=== PATIENT | male | born 1955 | race Caucasian/White ===

== ENCOUNTER 2017-09-06 17:29 | Emergency (ER) | payer MEDICAID, MEDICARE ==
[~2017-09-06] VITALS: Ht 177.8 cm; Wt 83.9 kg
[~2017-09-06 17:29] MED LIST: ALBUTEROL2.5 MG/3 M HHN; ATIVAN2 MG PO; AUGMENTIN TAB875 MG PO; BACTRIM-DS1 EA PO; CLEOCIN150 MG PO; CLINDAMYCIN HC150 MG ORAL; COMBIVIR1 EA PO; DEXILANT PO; DIFLUCAN200 MG ORAL; DILAUDID4 MG PO; NAPROXEN375 MG PO; NEVIRAPINE200 MG PO; QUETIAPINE FUM200 MG PO; REGLAN10 MG PO; Reglan PO; SERTRALINE HCL100 MG PO; SINGULAIR10 MG PO; SYNTHROID150 MCG PO; TRIAZOLAM0.25 MG PO; VENTOLIN HFA18 GM INH; XANAX2 MG PO; [UNRECOGNIZED DRUG - OTHER]; [UNRECOGNIZED DRUG - OTHER] IM; albuterol; fluconazole PO
[2017-09-06] MEDS ORDERED: Ipratropium 0.02% Inh Soln 2.5ml UD HHN ONE (18:45)
[2017-09-06] MEDS ORDERED: Albuterol ud Inhalation HHN ONE (18:45)
[2017-09-06 19:17] VITALS: BP 134/80
[2017-09-06] MEDS ORDERED: AUGMENTIN 875-1 EAC1 ORAL (20:11)
[2017-09-06] MEDS ORDERED: PREDNISONE20 MG ORAL (20:11)
[2017-09-06] MEDS ORDERED: PROMETHAZINE-C118 M1 ORAL (20:11)
[2017-09-06] MEDS ORDERED: ALBUTEROL SULF8.5 GM INH (20:11)
[2017-09-06 20:41] VITALS: BP 127/77
--- NOTE | 2017-09-06 22:05 | Emergency Room Report ---
History of Present Illness General Chief Complaint: Flu Like Symptoms Source: Patient Present Illness HPI 61-year-old male presents ED complaining of cough and congestion for the last 4 days. History of HIV. states he is compliant with his medications. Notes body aches and fever. Afebrile here. States he had a fever at home. Cough is productive with yellowish sputum. States his partner had similar symptoms initially area denies recent travel. No other aggravating relieving factors. Denies any other associated symptoms Allergies: Coded Allergies: BUPROPION HCL (Verified Allergy, 10/26/11) ONDANSETRON HCL (Verified Allergy, 10/26/11) Patient History Past Medical History: asthma, COPD, seizures, HIV Past Surgical History: none Pertinent Family History: none Social History: Denies: smoking, alcohol use, drug use Immunizations: UTD Reviewed Nursing Documentation: PMH: Agreed; PSxH: Agreed Nursing Documentation-PMH Hx Cardiac Problems: Yes - AIDS, Hep C Hx Asthma: Yes Hx COPD: Yes Hx Cancer: Yes - skin cancer, liver Hx Gastrointestinal Problems: Yes Hx Neurological Problems: Yes Hx Seizures: Yes Review of Systems All Other Systems: negative except mentioned in HPI Physical Exam Vital Signs Date Time Temp Pulse Resp B/P (MAP) Pulse Ox O2 Delivery O2 Flow Rate FiO2 09/06/17 18:17 98.7 87 18 134/80 98 Room Air 98.8 Sp02 EP Interpretation: reviewed, normal General Appearance: no apparent distress, alert, GCS 15, non-toxic Head: normocephalic, atraumatic Eyes: bilateral eye normal inspection, bilateral eye PERRL ENT: hearing grossly normal, normal pharynx, no angioedema, normal voice Neck: full range of motion, supple/symm/no masses Respiratory: chest non-tender, normal breath sounds, speaking full sentences, wheezing Cardiovascular #1: regular rate, rhythm, no edema Cardiovascular #2: 2+ carotid (R), 2+ carotid (L), 2+ radial (R), 2+ radial (L) , 2+ dorsalis pedis (R), 2+ dorsalis pedis (L) Gastrointestinal: normal bowel sounds, non tender, soft, non-distended, no guarding, no rebound Rectal: deferred Genitourinary: normal inspection, no CVA tenderness Musculoskeletal: back normal, gait/station normal, normal range of motion, non- tender Neurologic: alert, oriented x3, responsive, motor strength/tone normal, sensory intact, speech normal Psychiatric: judgement/insight normal, memory normal, mood/affect normal, no suicidal/homicidal ideation Reflexes: 3+ bicep (R), 3+ bicep (L), 3+ tricep (R), 3+ tricep (L), 3+ knee (R) , 3+ knee (L) Skin: normal color, no rash, warm/dry, well hydrated Lymphatic: no adenopathy Medical Decision Making Diagnostic Impression: Primary Impression: Pneumonia Qualified Codes: J18.9 - Pneumonia, unspecified organism ER Course Hospital Course 61-year-old male presents to ED complaining of cough, bodyaches, chills Differential diagnoses include: URI, bronchitis, asthma/COPD, pneumonia Clinical course Patient placed on stretcher. After initial history and physical I ordered prednisone and nebulizer treatment. Chest x-ray shows no obvious infiltrate Based on history of HIV and presentation we will treat as atypical pneumonia. I will prescribe antibiotics. Patient will follow-up with his PMD Dr Mae Diagnosis - pneumonia Stable and discharged home with prescriptions for Rx Augmentin, prednisone, albuterol, cough medication. Instructed to followup with PMD. Return to ED if symptoms recur or worsen Chest X-Ray Diagnostic Results Chest X-Ray Diagnostic Results : Chest X-Ray Ordered: Yes # of Views/Limited/Complete: 1 View Indication: Shortness of Breath EP Interpretation: Yes Interpretation: no consolidation, no effusion, no pneumothorax, no acute cardiopulmonary disease Impression: No acute disease Electronically Signed by: Electronically signed by Bucky Martinez MD Last Vital Signs Date Time Temp Pulse Resp B/P (MAP) Pulse Ox O2 Delivery O2 Flow Rate FiO2 09/06/17 19:17 98.8 87 18 134/80 98 Room Air 98.8 Status: improved Disposition: HOME, SELF-CARE Condition: Stable Scripts Albuterol Sulfate* (ALBUTEROL SULFATE MDI*) 8.5 Gm Hfa.aer.ad 2 PUFF INH Q6H, #1 EA 0 Refills Prov: Bucky Martinez MD 09/06/17 Prednisone* (PREDNISONE*) 20 Mg Tablet 40 MG ORAL DAILY, #10 TAB Prov: Bucky Martinez MD 09/06/17 Codeine/Promethazine Hcl* (PROMETHAZINE-CODEINE SYRUP*) 118 Ml Syrup 5 ML ORAL Q6H PRN for For Cough, #118 ML 0 Refills Prov: Bucky Martinez MD 09/06/17 Amoxicillin/Potassium Clav 875-125* (AUGMENTIN 875-125 TABLET*) 1 Each Tablet 1 TAB ORAL TWICE A DAY, #14 TAB Prov: Bucky Martinez MD 09/06/17 Patient Instructions: Community-Acquired Pneumonia, Adult, [id number] Bucky Martinez MD Sep 06, 2017 22:05
--- NOTE | 2017-09-07 11:45 | Diagnostic Imaging Report ---
Indication: Cough Comparison: 05/05/2015 A single view chest radiograph was obtained. Findings: Cardiomediastinal appearance is prominent but within normal limits for age. Pulmonary vascularity is appropriate. The diaphragmatic contour is smooth and costophrenic angles are sharp. No pleural effusions are identified. The bones are unremarkable. Impression: No acute findings
== END 2017-09-06 20:21 | disposition home or self-care (01) ==
LOC: EMR 18:35
DX: J18.9 Pneumonia, unspecified organism (principal); B20 Human immunodeficiency virus [HIV] disease; J45.909 Unspecified asthma, uncomplicated; J44.9 Chronic obstructive pulmonary disease, unspecified; R56.9 Unspecified convulsions; Z85.828 Personal history of other malignant neoplasm of skin; Z85.05 Personal history of malignant neoplasm of liver; Z88.8 Allergy status to other drugs, medicaments and biological substances
CPT/HCPCS: 71045; 94640; 94664; 99284; J7512

== ENCOUNTER 2019-01-06 13:37 | Inpatient (IN) | payer MEDICARE, MEDICAID ==
[~2019-01-06] VITALS: Ht 172.7 cm; Wt 78.5 kg
[~2019-01-06 13:37] MED LIST changes: +ALBUTEROL SULF8.5 GM INH; +AUGMENTIN 875-1 EAC1 ORAL; +OCUFLOX5 ML OP; +PREDNISONE20 MG ORAL; +PROMETHAZINE-C118 M1 ORAL
[2019-01-06 14:00] VITALS: BP 96/61
--- NOTE | 2019-01-06 14:00 | NUR ---
ED Nurse Note: Pt ambulated to ED from home with , c/o 09/05 headache and pain at L upper back, post cyst removal, Dr Bundy at bedside re-packing wound. Pt is A&Ox4, VSS
--- NOTE | 2019-01-06 14:23 | Emergency Room Report ---
History of Present Illness General Chief Complaint: Skin Rash/Abscess Source: Patient Present Illness HPI 63-year-old male history of HIV, hypertension, presents with fever/chills, generalized weakness x2 days since he had an incision and drainage of his back abscess, no aggravating or relieving factors severity is moderate, constant, patient was unable to obtain his IV antibiotics due to the home health nurse unable to get access, he is been without antibiotics for greater than 24 hours, patient presents for evaluation. Allergies: Coded Allergies: No Known Allergies (Unverified , 01/06/19) Patient History Past Medical History: see triage record Reviewed Nursing Documentation: PMH: Agreed; PSxH: Agreed Nursing Documentation-PMH Hx Cardiac Problems: Yes - AIDS, Hep C, CVA 04/2018 Hx Asthma: Yes Hx COPD: Yes Hx Cancer: Yes - skin cancer, liver Hx Gastrointestinal Problems: Yes History Of Psychiatric Problem: No Hx Neurological Problems: Yes Hx Seizures: Yes Review of Systems All Other Systems: negative except mentioned in HPI Physical Exam Vital Signs Date Time Temp Pulse Resp B/P (MAP) Pulse Ox O2 Delivery O2 Flow Rate FiO2 01/06/19 13:52 97.5 66 18 96/61 (73) 97 Room Air Sp02 EP Interpretation: reviewed, normal General Appearance: alert, mild distress Head: normocephalic, atraumatic Eyes: bilateral eye PERRL, bilateral eye EOMI ENT: uvula midline, moist mucus membranes Neck: supple, thyroid normal, supple/symm/no masses Respiratory: lungs clear, no respiratory distress, no retraction, no accessory muscle use Cardiovascular #1: normal peripheral pulses, regular rate, rhythm, no edema, no gallop, no murmur Gastrointestinal: non tender, soft, no guarding, no rebound Musculoskeletal: normal inspection Neurologic: alert, oriented x3 Psychiatric: mood/affect normal Skin: other - Left upper back abscess with mild drainage, packing has not been changed. Medical Decision Making Diagnostic Impression: Primary Impression: Sepsis Qualified Codes: A41.9 - Sepsis, unspecified organism Additional Impressions: Abscess Cellulitis Qualified Codes: L03.90 - Cellulitis, unspecified ER Course 63-year-old male with cellulitis of his upper back as well as abscess with active drainage, patient was started on antibiotics however he was unable to start his antibiotics for 2 days, he is been febrile tachycardic, Patient presents with borderline blood pressures, white count unremarkable however he is immunocompromise, will start Zosyn here Patient will be admitted for IV antibiotics Patient admitted to Dr. Dom Dyer Laboratory Tests Test 01/06/19 14:30 01/06/19 15:30 White Blood Count 4.2 K/UL (4.8-10.8) L Red Blood Count 5.49 M/UL (4.70-6.10) Hemoglobin 15.6 G/DL (14.2-18.0) Hematocrit 48.0 % (42.0-52.0) Mean Corpuscular Volume 88 FL (80-99) Mean Corpuscular Hemoglobin 28.5 PG (27.0-31.0) Mean Corpuscular Hemoglobin Concent 32.5 G/DL (32.0-36.0) Red Cell Distribution Width 13.5 % (11.6-14.8) Platelet Count 263 K/UL (150-450) Mean Platelet Volume 6.4 FL (6.5-10.1) L Neutrophils (%) (Auto) 59.1 % (45.0-75.0) Lymphocytes (%) (Auto) 28.4 % (20.0-45.0) Monocytes (%) (Auto) 7.9 % (1.0-10.0) Eosinophils (%) (Auto) 3.2 % (0.0-3.0) H Basophils (%) (Auto) 1.5 % (0.0-2.0) Sodium Level 140 MMOL/L (136-145) Potassium Level 4.7 MMOL/L (3.5-5.1) Chloride Level 105 MMOL/L (98-107) Carbon Dioxide Level 26 MMOL/L (21-32) Anion Gap 10 mmol/L (5-15) Blood Urea Nitrogen 25 mg/dL (7-18) H Creatinine 1.6 MG/DL (0.55-1.30) H Estimate Glomerular Filtration Rate 43.6 mL/min (>60) Glucose Level 149 MG/DL (74-106) H Lactic Acid Level 0.90 mmol/L (0.4-2.0) Calcium Level 8.7 MG/DL (8.5-10.1) Phosphorus Level 5.0 MG/DL (2.5-4.9) H Magnesium Level 1.9 MG/DL (1.8-2.4) Total Bilirubin 0.7 MG/DL (0.2-1.0) Aspartate Amino Transferase (AST) 40 U/L (15-37) H Alanine Aminotransferase (ALT) 34 U/L (12-78) Alkaline Phosphatase 79 U/L (46-116) Total Creatine Kinase 154 U/L (26-308) Creatine Kinase MB 2.1 NG/ML (0.0-3.6) Creatine Kinase MB Relative Index 1.3 Troponin I 0.000 ng/mL (0.000-0.056) Pro-B-Type Natriuretic Peptide 108 pg/mL (0-125) Total Protein 7.8 G/DL (6.4-8.2) Albumin 4.1 G/DL (3.4-5.0) Globulin 3.7 g/dL Albumin/Globulin Ratio 1.1 (1.0-2.7) Lipase 110 U/L (73-393) Prothrombin Time 10.6 SEC (9.30-11.50) Prothrombin Time INR 1.0 (0.9-1.1) PTT 29 SEC (23-33) EKG Diagnostic Results EKG Time: 15:16 EP Interpretation: NSR, rate 61, QTc 410, no acute ST elevations, normal axis Rhythm Strip Diag. Results Rhythm Strip Time: 17:41 EP Interpretation: yes Rate: 68 Rhythm: NSR, no PVC's, no ectopy Chest X-Ray Diagnostic Results Chest X-Ray Diagnostic Results : Chest X-Ray Ordered: Yes # of Views/Limited/Complete: 1 View Indication: Shortness of Breath EP Interpretation: Yes Interpretation: no consolidation, no effusion, no pneumothorax, no acute cardiopulmonary disease Impression: No acute disease Electronically Signed by: Enzo Bundy MD CT/MRI/US Diagnostic Results CT/MRI/US Diagnostic Results : Impression Preliminary Findings Only See Final Report For Complete Findings CT HEAD Without Contrast: No intracranial hemorrhage, mass effect or CT evidence of acute infarct Ventricles are within limits and midline A couple of opacified right ethmoid air cells Mastoids and orbits appear within limits Radiologist: Simon Knox M.D. Study ready at 16:19 and initial results transmitted at 17:22 Preliminary Findings Only See Final Report For Complete Findings CT ABDOMEN & PELVIS With Contrast: Lung bases are clear Small hiatal hernia Abdominal solid organs and abdominal aorta appear within limits Large amount of mostly proximal and transverse colonic stool without wall thickening or pericolonic inflammatory change Normal caliber appendix without secondary signs No free fluid The gallbladder is not identified Evidence of previous small bowel surger/anastomosis Radiologist: Simon Knox M.D. Study ready at 16:17 and initial results transmitted at 17:27 Last Vital Signs Date Time Temp Pulse Resp B/P (MAP) Pulse Ox O2 Delivery O2 Flow Rate FiO2 01/06/19 13:52 97.5 66 18 96/61 (73) 97 Room Air Disposition: ADMITTED INPATIENT Condition: Serious Enzo Bundy MD Jan 06, 2019 14:23
[2019-01-06] MEDS ORDERED: Piperacillin/Tazobactam 3.375 GM in NS 110 ML IVPB ONE (14:30)
[2019-01-06 15:17] LABS: BASOPHILS % (AUTO) 1.5 % (0.0-2.0); EOSINOPHILS % (AUTO) 3.2 % (0.0-3.0); HEMOGLOBIN 15.6 G/DL (14.2-18.0); LYMPHOCYTES % (AUTO) 28.4 % (20.0-45.0); MEAN CORPUSCULAR VOLUME 88 FL (80-99); MONOCYTES % (AUTO) 7.9 % (1.0-10.0); NEUTROPHILS % (AUTO) 59.1 % (45.0-75.0); PLATELET COUNT 263 K/UL (150-450); RED BLOOD COUNT 5.49 M/UL (4.70-6.10); RED CELL DISTRIBUTION WIDTH 13.5 % (11.6-14.8); WHITE BLOOD COUNT 4.2 K/UL (4.8-10.8)
[2019-01-06 15:20] LABS: ANION GAP 10 mmol/L (5-15); BLOOD UREA NITROGEN 25 mg/dL (7-18); CALCIUM 8.7 MG/DL (8.5-10.1); CARBON DIOXIDE 26 MMOL/L (21-32); CHLORIDE 105 MMOL/L (98-107); CREATININE 1.6 MG/DL (0.55-1.30); POTASSIUM 4.7 MMOL/L (3.5-5.1); SODIUM 140 MMOL/L (136-145)
[2019-01-06] MEDS ORDERED: Hydromorphone 0.5mg/0.5ml inj IVP ONE (15:30)
[2019-01-06] MEDS ORDERED: Omnipaque-300 100ml vial INJ PRN (15:30)
[2019-01-06 15:35] LABS: ALANINE AMINOTRANSFERASE 34 U/L (12-78); ALBUMIN 4.1 G/DL (3.4-5.0); ALBUMIN/GLOBULIN RATIO 1.1 (1.0-2.7); ALKALINE PHOSPHATASE 79 U/L (46-116); ASPARTATE AMINO TRANSFERASE 40 U/L (15-37); BILIRUBIN,TOTAL 0.7 MG/DL (0.2-1.0); CKMB 2.1 NG/ML (0.0-3.6); CREATINE KINASE 154 U/L (26-308)
--- NOTE | 2019-01-06 17:22 | Diagnostic Imaging Report ---
Indication: Headache Technique: Contiguous 5 mm thick transaxial imaging of the head obtained in a Siemens Sensation [address] scanner. Soft tissue and bone windows generated. Automatic Exposure Control was utilized. Total Dose length Product (DLP): [address] Dose Index Volume (CTDIvol): 62.7 mGy Comparison: none Findings: There is mild prominence of the ventricles, basal cisterns, and cerebral sulci consistent with atrophy. Mild, nonspecific, white matter hypoattenuation is noted throughout the brain consistent with chronic small vessel disease. There is no midline shift, edema, acute hemorrhage, mass effect, or abnormal extra-axial fluid collections. Bones are unremarkable. Impression: No acute intracranial bleed, mass effect or edema. Mild atrophy of the brain. Nonspecific white matter hypoattenuation probably due to chronic small vessel disease. [facility] has communicated the preliminary results to the Emergency Department. Their findings are largely concordant with this report. The CT scanner at [facility] is accredited by the [employer] and the scans are performed using dose optimization techniques as appropriate to a performed exam including Automatic Exposure control.
--- NOTE | 2019-01-06 17:27 | Diagnostic Imaging Report ---
Indication: Abdominal pain Technique: Continuous helical transaxial imaging of the abdomen and pelvis was obtained from the lung bases to the pubic symphysis during intravenous contrast administration. Coronal 2-D reformats were also obtained. Study obtained in a Siemens sensation [address] Automatic Exposure Control was utilized. Total Dose length Product (DLP): 932.[address] Dose Index Volume (CTDIvol): 16.4 mGy Comparison: None Findings: Heart is enlarged. The lung bases are essentially clear. There is a small hiatal hernia. There is a moderate degree of a colonic stool especially in the transverse colon and ascending colon. There is no free fluid. There is artifact limiting evaluation. Gallbladder is absent. There is no hydronephrosis. Sutures associated with small bowel in the lower abdomen noted consistent with partial resection. The pancreas and adrenal glands, spleen and liver are unremarkable. IMPRESSION: No acute findings appreciated Evidence of previous abdominal surgery including partial small bowel resection. Status post cholecystectomy Hiatal hernia. [facility] has communicated the preliminary results to the Emergency Department. Their findings are largely concordant with this report. The CT scanner at [facility] is accredited by the [employer] and the scans are performed using dose optimization techniques as appropriate to a performed exam including Automatic Exposure control.
[2019-01-06 17:33] VITALS: BP 104/68
--- NOTE | 2019-01-06 17:55 | NUR ---
NURSE NOTES: received patient from ED, came on gursibley, accompanied by . Patient is in stable condition, in room air, no sign of respiratory discomfort noted. Patient has ANURAG IV access, gauge 18, and a dressing at his left back. Patient is anxious, fatigued.
[2019-01-06 19:00] VITALS: BP 102/75
[2019-01-06] MEDS ORDERED: LORazepam 1mg tab ORAL PRN (19:00)
--- NOTE | 2019-01-06 19:00 | NUR ---
NURSE NOTES: during medication reconciliation patient started to get very anxious and told nurse: I can't do this anymore, and told nurse to leave the room. Nurse left and got information for nursing assessment from Abdoul Arauz, but he also is not sure which medication patient is currently on from the medication list, as patient denied taking the PO antibiotics prior to his anxiety attack. Communicated dr Dyer that Francois Arauz informed nurse that he'll get the current medication list from the pharmacy and will bring it first thing in the morning tomorrow. Also notified dr. Dyer regarding patient rectal bleeding, informed by Francois Arauz, but he denied it being hemorrhoids. Orders received.
[2019-01-06 19:11] LABS: APPEARANCE,URINE CLEAR; BILIRUBIN, URINE NEGATIVE (NEGATIVE); GLUCOSE, URINE (UA) 4+ (NEGATIVE); KETONES,URINE NEGATIVE (NEGATIVE); LEUKOCYTE ESTERASE ,URINE NEGATIVE (NEGATIVE); NITRITE,URINE NEGATIVE (NEGATIVE); PH,URINE 5 (4.5-8.0); PROTEIN,URINE NEGATIVE (NEGATIVE); UROBILINOGEN,URINE 1 MG/DL (0.0-1.0)
[2019-01-06 19:15] LABS: COLOR,URINE YELLOW
--- NOTE | 2019-01-06 19:30 | NUR ---
HAND-OFF: Report given to ZANA Mcdonald
--- NOTE | 2019-01-06 20:04 | NUR ---
NURSE NOTES: Pt is in bed awake, alert and oriented. Breathing on room air. No acute distress noted. IV patent and asymptomatic. Bed in low and locked position. call light within reach. Will continue to monitor.
[2019-01-06] MEDS: Piperacillin/Tazobactam 3.375 GM in NS 110 ML IVPB SCH (21:18)
[2019-01-06] MEDS: QUEtiapine 200mg tab ORAL SCH (21:18)
--- NOTE | 2019-01-06 23:37 | NUR ---
NURSE NOTES: Pt refused to take picture. Pt stated that "i want to sleep now, will try later". Will try to take the picture later.
[2019-01-07] MEDS: ALPRAZolam 0.25mg tab ORAL SCH ×3 (00:40→17:00)
--- NOTE | 2019-01-07 01:46 | NUR ---
Pt refused to take vitals @ 0000.
--- NOTE | 2019-01-07 03:44 | NUR ---
NURSE NOTES: Pt refused to raise two side rails up. Pt wanted to raise only one side rail. Pt is AOX4. Despite of education and encouragement pt refused to raise two side rails up.
[2019-01-07] MEDS: Piperacillin/Tazobactam 3.375 GM in NS 110 ML IVPB SCH ×3 (05:00→22:00)
--- NOTE | 2019-01-07 05:07 | NUR ---
NURSE NOTES: Unable to collect stool, no BM.
--- NOTE | 2019-01-07 05:30 | NUR ---
NURSE NOTES: Patient is awake, alert and verbally responsive. Primary nurse informed charge nurse that patient has medications at bedside and took prescribed medications from home without nurses knowledge. Educated and informed the patient regarding hospital policy of medications at bedside. patient refused to have medication be brought down to pharmacy.. Field Crew Chief was informed. Patient in no distress noted.
--- NOTE | 2019-01-07 05:31 | NUR ---
NURSE NOTES: Pt wants to keep his home medications with him. Pt refused to take his home medications to pharmacy. Educate pt about policy but still pt refused to take medications to the pharmacy. Charge nurse made aware and also platform mill supervisor made aware. Will consult with pharmacy.
--- NOTE | 2019-01-07 05:38 | NUR ---
NURSE NOTES: Pt refused his vitls @ [id number].
--- NOTE | 2019-01-07 05:45 | Consultation ---
DATE OF CONSULTATION: 01/07/2019 INITIAL PSYCHIATRIC EVALUATION CONSULTING PHYSICIAN: Yumiko Louis M.D. REFERRING PHYSICIAN: Dom Dyer D.O. HISTORY OF PRESENT ILLNESS: This is a 63-year-old male patient who was brought in secondary to skin rash and abscess, but this patient apparently has high levels of anxiety and also schizophrenia and extreme mood lability, worsened by stress of his medical illness. He has altered mental status. That is why his attending physician has requested daily psychiatric consultation. PAST MEDICAL HISTORY: He has a history of HIV, hypertension, generalized weakness, and back abscess. ALLERGIES: He has no known drug allergies. PSYCHOTROPIC MEDICATIONS ON ADMISSION: This patient is currently on a psychotropic medication regimen consisting of Xanax 0.25 mg three times a day and Seroquel 400 mg nightly. The patient states he is doing well on his medications. SUBSTANCE ABUSE HISTORY: There is no known history of any drug and alcohol use at this time. FAMILY PSYCHIATRIC HISTORY: Denies. PAIN ASSESSMENT: 0/10. DEVELOPMENTAL PROBLEMS: Denies. SOCIAL HISTORY: He lives in a private residence. He is financially supported by [employer] and Medicare. PSYCHIATRIC HISTORY: History of bipolar II, rule out paranoid schizophrenia, but he is a poor historian as far as given his psychiatric history STRENGTHS: He is motivated to get better and has a place to live. WEAKNESSES: He is impulsive with minimal support system. MENTAL STATUS EXAMINATION: This is a 63-year-old male. Appearance is disheveled. Attitude, irritable and agitated. Affect, guarded and restricted. Intellect poor. Mood, depressed and anxious. Motor activity, psychomotor agitation. Attention span is poor. Orientation x2. Speech is low volume and slow. Thought process, disorganized and logical. Insight and judgment are poor. DIAGNOSIS: Bipolar II. PLAN: Treat the patient with medication regimen consisting of Seroquel 400 mg nightly, and I am also going to continue him on his Xanax 0.25 mg three times a day, and I encouraged him to interact appropriately with staff and other patients. Twenty minutes of cognitive behavioral therapy was provided to help this patient identify automatic negative thoughts and help him convert those negative thoughts to more positive thoughts to reduce depression, anxiety, and mood lability. Twenty minutes of cognitive behavioral therapy provided to help him have a more adaptive behavioral pattern on the unit. Chart was reviewed. Discussed with staff. I would like to thank, Dr. Dom Dyer, for this interesting consultation. Yumiko Louis M.D. DR: MARGIE JOB#: [id number] CC:
[2019-01-07] MEDS ORDERED: QUEtiapine 200mg tab ORAL PRN (06:00)
[2019-01-07] MEDS ORDERED: Nitroglycerin Subl 0.4mg tab SL PRN (06:00)
--- NOTE | 2019-01-07 06:37 | NUR ---
NURSE NOTES: Pt refused to draw his blood in the morning.
--- NOTE | 2019-01-07 07:34 | NUR ---
HAND-OFF: Report given to ZANA Dolan.
--- NOTE | 2019-01-07 07:45 | NUR ---
NURSE NOTES: Patient received sleeping in bed, breathing unlabored on room air. No apparent signs of distress observed. IV site on left upper arm patent and intact, running Zosyn currently. Patient's cane by the bedside. Call light within reach. Will continue to monitor.
--- NOTE | 2019-01-07 08:51 | Consultation ---
History of Present Illness General Date patient seen: Jan 07, 2019 Chief Complaint: Present Illness Allergies: Coded Allergies: No Known Allergies (Unverified , 01/06/19) Medication History Scheduled Albuterol Sulfate* (Albuterol Sulfate Mdi*), 2 PUFF INH Q6H Alprazolam* (Xanax*), 2 MG PO FOUR TIMES A DAY, (Reported) Amoxicillin/Potassium Clav 875-125* (Augmentin 875-125 Tablet*), 1 TAB ORAL TWICE A DAY Fluconazole* (Diflucan*), 200 MG ORAL DAILY, (Reported) Lamivudine/Zidovudine (Combivir Tablet), 1 TAB PO BID, (Reported) Levothyroxine Sodium* (Synthroid*), 200 MCG PO DAILY, (Reported) Lorazepam* (Ativan*), 2 MG PO BID, (Reported) Metoclopramide Hcl* (Reglan*), 10 MG PO BID, (Reported) Montelukast Sodium* (Singulair*), 10 MG PO QPM, (Reported) Naproxen* (Naprosyn*), 375 MG PO BID Nevirapine* (Viramune*), 200 MG PO BID, (Reported) Ofloxacin (Ocuflox), 2 DROP OP QID Prednisone* (Prednisone*), 40 MG ORAL DAILY Quetiapine Fumarate* (Seroquel*), 600 MG PO BEDTIME, (Reported) Sertraline Hcl* (Zoloft*), 100 MG PO DAILY, (Reported) Triazolam* (Halcion*), 0.25 MG PO QHS PRN SLEEP, (Reported) Trimethoprim/Sulfamethoxazole (Bactrim Ds Tablet), 1 TAB PO BID, (Reported) [dexilant DR], 60 MG PO BID, (Reported) [serostem], 1 ML IM DAILY, (Reported) Scheduled PRN Albuterol Sulfate (Ventolin Hfa), 2 PUFFS INH BID PRN, (Reported) Codeine/Promethazine Hcl* (Promethazine-Codeine Syrup*), 5 ML ORAL Q6H PRN for For Cough Hydromorphone HCl (Dilaudid), 5 MG PO BID PRN, (Reported) Patient History Healthcare decision maker Abdoul Arauz, Resuscitation status Full Code Advanced Directive on File No Physical Exam Last 24 Hour Vital Signs Date Time Temp Pulse Resp B/P (MAP) Pulse Ox O2 Delivery O2 Flow Rate FiO2 01/06/19 21:00 Room Air 01/06/19 20:08 Room Air 01/06/19 19:00 97.2 69 19 102/75 (84) 96 69 01/06/19 17:34 97.6 71 16 104/68 98 Room Air 01/06/19 17:33 97.6 71 16 104/68 98 Room Air 01/06/19 15:54 97.5 01/06/19 14:00 97.5 82 18 96/61 97 Room Air 01/06/19 13:52 97.5 66 18 96/61 (73) 97 Room Air Intake and Output 01/06/19 01/07/19 19:00 07:00 Intake Total 710.0 ml Balance 710.0 ml Intake Oral 600 ml IV Total 110.0 ml # Voids 3 Laboratory Tests Test 01/06/19 14:30 01/06/19 15:30 01/06/19 18:20 White Blood Count 4.2 K/UL (4.8-10.8) L Red Blood Count 5.49 M/UL (4.70-6.10) Hemoglobin 15.6 G/DL (14.2-18.0) Hematocrit 48.0 % (42.0-52.0) Mean Corpuscular Volume 88 FL (80-99) Mean Corpuscular Hemoglobin 28.5 PG (27.0-31.0) Mean Corpuscular Hemoglobin Concent 32.5 G/DL (32.0-36.0) Red Cell Distribution Width 13.5 % (11.6-14.8) Platelet Count 263 K/UL (150-450) Mean Platelet Volume 6.4 FL (6.5-10.1) L Neutrophils (%) (Auto) 59.1 % (45.0-75.0) Lymphocytes (%) (Auto) 28.4 % (20.0-45.0) Monocytes (%) (Auto) 7.9 % (1.0-10.0) Eosinophils (%) (Auto) 3.2 % (0.0-3.0) H Basophils (%) (Auto) 1.5 % (0.0-2.0) Sodium Level 140 MMOL/L (136-145) Potassium Level 4.7 MMOL/L (3.5-5.1) Chloride Level 105 MMOL/L (98-107) Carbon Dioxide Level 26 MMOL/L (21-32) Anion Gap 10 mmol/L (5-15) Blood Urea Nitrogen 25 mg/dL (7-18) H Creatinine 1.6 MG/DL (0.55-1.30) H Estimat Glomerular Filtration Rate 43.6 mL/min (>60) Glucose Level 149 MG/DL (74-106) H Lactic Acid Level 0.90 mmol/L (0.4-2.0) Calcium Level 8.7 MG/DL (8.5-10.1) Phosphorus Level 5.0 MG/DL (2.5-4.9) H Magnesium Level 1.9 MG/DL (1.8-2.4) Total Bilirubin 0.7 MG/DL (0.2-1.0) Aspartate Amino Transf (AST/SGOT) 40 U/L (15-37) H Alanine Aminotransferase (ALT/SGPT) 34 U/L (12-78) Alkaline Phosphatase 79 U/L (46-116) Total Creatine Kinase 154 U/L (26-308) Creatine Kinase MB 2.1 NG/ML (0.0-3.6) Creatine Kinase MB Relative Index 1.3 Troponin I 0.000 ng/mL (0.000-0.056) Pro-B-Type Natriuretic Peptide 108 pg/mL (0-125) Total Protein 7.8 G/DL (6.4-8.2) Albumin 4.1 G/DL (3.4-5.0) Globulin 3.7 g/dL Albumin/Globulin Ratio 1.1 (1.0-2.7) Lipase 110 U/L (73-393) Prothrombin Time 10.6 SEC (9.30-11.50) Prothromb Time International Ratio 1.0 (0.9-1.1) Activated Partial Thromboplast Time 29 SEC (23-33) Urine Color Yellow Urine Appearance Clear Urine pH 5 (4.5-8.0) Urine Specific [place] 1.015 (1.005-1.035) Urine Protein Negative (NEGATIVE) Urine Glucose (UA) 4+ (NEGATIVE) H Urine Ketones Negative (NEGATIVE) Urine Blood Negative (NEGATIVE) Urine Nitrite Negative (NEGATIVE) Urine Bilirubin Negative (NEGATIVE) Urine Urobilinogen 1 MG/DL (0.0-1.0) H Urine Leukocyte Esterase Negative (NEGATIVE) Height (Feet): 5 Height (Inches): 9.00 Weight (Pounds): 179 Medications Current Medications Medications (Trade) Dose Ordered Sig/Debbie Route PRN Reason Start Time Stop Time Status Last Admin Dose Admin Alprazolam (Xanax) 0.25 mg TID@0000,0900,1700 ORAL 01/07/19 00:00 01/14/19 00:00 01/07/19 00:40 Aspirin (ASA) 81 mg BEDTIME ORAL 01/07/19 21:00 02/06/19 20:59 Dolutegravir Sodium (Tivicay) 50 mg BEDTIME ORAL 01/07/19 21:00 02/06/19 20:59 UNV Fenofibrate (Tricor) 145 mg DAILY ORAL 01/07/19 09:00 02/06/19 08:59 Glipizide (Glucotrol) 10 mg DAILY ORAL 01/07/19 09:00 02/06/19 08:59 Hydromorphone HCl (Dilaudid) 6 mg Q6H PRN ORAL For Pain 01/06/19 19:00 01/13/19 18:59 Iohexol (OMNIPAQUE-300 100ml) 100 ml NOW PRN INJ Radiology Procedure 01/06/19 15:30 01/08/19 15:19 Levothyroxine Sodium (Synthroid) 200 mcg DAILY@0630 ORAL 01/07/19 06:30 02/06/19 06:29 01/07/19 06:56 Metformin HCl (Glucophage) 500 mg DAILY ORAL 01/08/19 21:00 02/07/19 20:59 Metoclopramide HCl (Reglan) 10 mg BIAC ORAL 01/07/19 06:30 02/06/19 06:29 Montelukast Sodium (Singulair) 10 mg BEDTIME ORAL 01/07/19 21:00 02/06/19 20:59 Nitroglycerin (Ntg) 0.4 mg Q5M PRN SL Prn Chest Pain 01/07/19 06:00 02/06/19 05:59 Non-Formulary Medication (Non-Formulary Med) 1 ea DAILY ORAL 01/07/19 09:00 02/06/19 08:59 Non-Formulary Medication (Non-Formulary Med) 1 ea DAILY ORAL 01/07/19 09:00 02/06/19 08:59 UNV Non-Formulary Medication (Non-Formulary Med) 1 ea DAILY ORAL 01/07/19 09:00 02/06/19 08:59 UNV Patient Own Medication (Patient's Own Med) 1 ea HSPRN ORAL 01/06/19 19:00 02/05/19 18:59 UNV Piperacillin Sod/ Tazobactam Sod 3.375 gm/Sodium Chloride 110 ml @ 27.5 mls/hr EVERY 8 HOURS IVPB 01/06/19 22:00 01/11/19 21:59 01/07/19 05:00 Quetiapine Fumarate (SEROquel) 300 mg BEDTIME PRN ORAL Insomnia 01/07/19 06:00 02/06/19 05:59 Quetiapine Fumarate (SEROquel) 400 mg QHS ORAL 01/06/19 21:00 02/05/19 20:59 01/06/19 21:18 Trimethoprim/ Sulfamethoxazole (Bactrim-DS) 1 tab BID ORAL 01/07/19 09:00 01/14/19 08:59 Assessment/Plan Assessment/Plan: (1) Back pain (2) Abscess s/p I+D (3) AID/HIV (4) Peripheral Neuropathy seen dictated. Jose F Clark Jan 07, 2019 08:51
[2019-01-07] MEDS ORDERED: metFORMIN 500mg tab ORAL SCH (09:00)
[2019-01-07 09:23] LABS: HEMATOCRIT 41.6 % (42.0-52.0); HEMOGLOBIN 13.9 G/DL (14.2-18.0); MEAN CORPUSCULAR VOLUME 87 FL (80-99); PLATELET COUNT 239 K/UL (150-450); RED CELL DISTRIBUTION WIDTH 13.3 % (11.6-14.8); WHITE BLOOD COUNT 7.2 K/UL (4.8-10.8)
[2019-01-07] MEDS: Bactrim-DS 1 tab ORAL SCH ×2 (09:25→17:00)
[2019-01-07] MEDS: GlipiZIDE 5mg tab ORAL SCH (09:26)
[2019-01-07] MEDS: HYDROmorphone 4mg tab ORAL PRN ×3 (09:26→23:41)
[2019-01-07 09:42] LABS: ANION GAP 5 mmol/L (5-15); BLOOD UREA NITROGEN 20 mg/dL (7-18); CALCIUM 8.4 MG/DL (8.5-10.1); CARBON DIOXIDE 28 MMOL/L (21-32); CHLORIDE 105 MMOL/L (98-107); CREATININE 1.6 MG/DL (0.55-1.30); POTASSIUM 4.1 MMOL/L (3.5-5.1); SODIUM 138 MMOL/L (136-145)
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
[2019-01-07 12:00] VITALS: BP 123/79
--- NOTE | 2019-01-07 13:29 | NUR ---
VP OF TECHNOLOGYMEDICAL AND SCIENTIFIC ILLUSTRATOR 63 YO MALE FROM HOME TO ER CC CYST ON UPPER BACK REFERRED TO ER BY PMD SI: SEPSIS T. 97.5 HR 66 RR 18 B/P 96/61 BUN 25 CR 1.9 PHOS 5.0 WBC 4.2 AST 90 CXR= NEGATIVE HEAD CT- NO ACUTE PROCESS IS: IVF BOLUS NS X 1 LITER ZOSYN IV DILAUDID IV ADMITTED TO MED/SURG @ 6454 MED/SURG STATUS DCP RETURN HOME
--- NOTE | 2019-01-07 14:43 | NUR ---
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 CURRENT DIET: now NPO for GI prep PO DIET RECOMMENDATIONS: CCHO MED (texture per COMPRESS MACHINE OPERATOR or as tolerated) ADDITIONAL RECOMMENDATIONS: With reduced po intake rec GLUCERNA w/ meals Rec to obtain a standing scale as pt admits to recent wt loss Monitor phos (5.0) and need for dietary restriction F/up w/ COMPRESS MACHINE OPERATOR eval and post EGD BISHOP in 8oz fluid BID + Vit C 250mg daily for abscess - f/up w/ WC eval
--- NOTE | 2019-01-07 15:31 | Diagnostic Imaging Report ---
Indication: Dyspnea Comparison: 09/06/2017 A single view chest radiograph was obtained. Findings: Cardiomediastinal appearance is within normal limits for age. The lungs are clear. Pulmonary vascularity is appropriate. The diaphragmatic contour is smooth and costophrenic angles are sharp. No pleural effusions are identified. The bones are unremarkable. Impression: No acute findings
--- NOTE | 2019-01-07 15:40 | Consultation ---
History of Present Illness General Date patient seen: Jan 07, 2019 Reason for Hospitalization: Skin Rash/Abscess Present Illness HPI This is a very pleasant 63-year-old male who presented to the emergency department [facility] complaining of worsening back pain and drainage. Patient states he had an infected cyst on the left mid back which was drained with incision and drainage by his doctor in the office approximately 2 to 3 days ago. He had home health ordered afterwards and believes that they did not do a proper job at packing and dressing and any became worsening with infection. He came to [facility] given weekend for evaluation. Noted to have an infected left back wound. Admitted for antibiotics care and management. Surgery called to evaluate. Patient seen , patient evaluated, chart reviewed. States pain is okay but notes drainage. Discomfort with movement. Allergies: Coded Allergies: No Known Allergies (Unverified , 01/06/19) Medication History Scheduled Albuterol Sulfate* (Albuterol Sulfate Mdi*), 2 PUFF INH Q6H Alprazolam* (Xanax*), 2 MG PO FOUR TIMES A DAY, (Reported) Amoxicillin/Potassium Clav 875-125* (Augmentin 875-125 Tablet*), 1 TAB ORAL TWICE A DAY Fluconazole* (Diflucan*), 200 MG ORAL DAILY, (Reported) Lamivudine/Zidovudine (Combivir Tablet), 1 TAB PO BID, (Reported) Levothyroxine Sodium* (Synthroid*), 200 MCG PO DAILY, (Reported) Lorazepam* (Ativan*), 2 MG PO BID, (Reported) Metoclopramide Hcl* (Reglan*), 10 MG PO BID, (Reported) Montelukast Sodium* (Singulair*), 10 MG PO QPM, (Reported) Naproxen* (Naprosyn*), 375 MG PO BID Nevirapine* (Viramune*), 200 MG PO BID, (Reported) Ofloxacin (Ocuflox), 2 DROP OP QID Prednisone* (Prednisone*), 40 MG ORAL DAILY Quetiapine Fumarate* (Seroquel*), 600 MG PO BEDTIME, (Reported) Sertraline Hcl* (Zoloft*), 100 MG PO DAILY, (Reported) Triazolam* (Halcion*), 0.25 MG PO QHS PRN SLEEP, (Reported) Trimethoprim/Sulfamethoxazole (Bactrim Ds Tablet), 1 TAB PO BID, (Reported) [dexilant DR], 60 MG PO BID, (Reported) [serostem], 1 ML IM DAILY, (Reported) Scheduled PRN Albuterol Sulfate (Ventolin Hfa), 2 PUFFS INH BID PRN, (Reported) Codeine/Promethazine Hcl* (Promethazine-Codeine Syrup*), 5 ML ORAL Q6H PRN for For Cough Hydromorphone HCl (Dilaudid), 5 MG PO BID PRN, (Reported) Patient History History Provided By: Patient Healthcare decision maker Abdoul Davonte, Resuscitation status Full Code Advanced Directive on File No Past Medical/Surgical History Past Medical/Surgical History: (1) Pneumonia (2) Eyelash inversion (3) Corneal abrasion, left (4) Abscess (5) Cellulitis (6) Sepsis (7) Dysphagia (8) GERD (gastroesophageal reflux disease) (9) GI bleed (10) Abnormal lower esophageal sphincter relaxation (11) Rectal bleed Review of Systems Review of Symptoms General ROS: no weight loss or fever Psychological ROS: no depression or mood changes, no memory loss Ophthalmic ROS: no visual changes or eye irritation ENT ROS: no nasal congestion, hearing loss, dizziness Allergy and Immunology ROS: no allergic symptoms or urticaria Hematological and Lymphatic ROS: no swollen glands, unusual bleeding or bruising Endocrine ROS: no polyuria, polydipsia, weight changes, temperature intolerance Respiratory ROS: no cough, shortness of breath, or wheezing Cardiovascular ROS: no chest pain or dyspnea on exertion Gastrointestinal ROS: denies abdominal pain, bright red blood in stool. Musculoskeletal ROS: no myalgias or arthralgias Neurological ROS: no TIA or stroke symptoms Dermatological ROS: no new or changing skin lesions, rashes or pruritis Physical Exam Physical Exam General appearance: alert, cooperative, no distress, appears stated age Head: Normocephalic, without obvious abnormality, atraumatic Eyes: conjunctivae/corneas clear. PERRL, EOM's intact. Fundi benign Throat: Lips, mucosa, and tongue normal. Teeth and gums normal Neck: supple, symmetrical, trachea midline, no adenopathy, thyroid: not enlarged, symmetric, no tenderness/mass/nodules, no carotid bruit and no JVD Lungs: clear to auscultation bilaterally Heart: regular rate and rhythm, S1, S2 normal, no murmur, click, rub or gallop Abdomen: soft, non-tender. Bowel sounds normal. No masses, no organomegaly Extremities: extremities normal, atraumatic, no cyanosis or edema Pulses: 2+ and symmetric Skin: Skin color, texture, turgor normal. No rashes or lesions prior incision noted in the left mid back. Abscess cavity noted with dressings and packing. Neurologic: Grossly normal Last 24 Hour Vital Signs Date Time Temp Pulse Resp B/P (MAP) Pulse Ox O2 Delivery O2 Flow Rate FiO2 01/07/19 12:00 98.1 80 18 123/79 (94) 98 80 01/07/19 09:00 Room Air 01/06/19 21:00 Room Air 01/06/19 20:08 Room Air 01/06/19 19:00 97.2 69 19 102/75 (84) 96 69 01/06/19 17:34 97.6 71 16 104/68 98 Room Air 01/06/19 17:33 97.6 71 16 104/68 98 Room Air 01/06/19 15:54 97.5 Intake and Output 01/06/19 01/07/19 19:00 07:00 Intake Total 710.0 ml Balance 710.0 ml Intake Oral 600 ml IV Total 110.0 ml # Voids 3 Laboratory Tests Test 01/06/19 18:20 01/07/19 08:30 Urine Color Yellow Urine Appearance Clear Urine pH 5 (4.5-8.0) Urine Specific [place] 1.015 (1.005-1.035) Urine Protein Negative (NEGATIVE) Urine Glucose (UA) 4+ (NEGATIVE) H Urine Ketones Negative (NEGATIVE) Urine Blood Negative (NEGATIVE) Urine Nitrite Negative (NEGATIVE) Urine Bilirubin Negative (NEGATIVE) Urine Urobilinogen 1 MG/DL (0.0-1.0) H Urine Leukocyte Esterase Negative (NEGATIVE) White Blood Count 7.2 K/UL (4.8-10.8) # Red Blood Count 4.80 M/UL (4.70-6.10) Hemoglobin 13.9 G/DL (14.2-18.0) L Hematocrit 41.6 % (42.0-52.0) L Mean Corpuscular Volume 87 FL (80-99) Mean Corpuscular Hemoglobin 29.0 PG (27.0-31.0) Mean Corpuscular Hemoglobin Concent 33.5 G/DL (32.0-36.0) Red Cell Distribution Width 13.3 % (11.6-14.8) Platelet Count 239 K/UL (150-450) Mean Platelet Volume 6.7 FL (6.5-10.1) Neutrophils (%) (Auto) % (45.0-75.0) Lymphocytes (%) (Auto) % (20.0-45.0) Monocytes (%) (Auto) % (1.0-10.0) Eosinophils (%) (Auto) % (0.0-3.0) Basophils (%) (Auto) % (0.0-2.0) Differential Total Cells Counted 100 Neutrophils % (Manual) 83 % (45-75) H Lymphocytes % (Manual) 8 % (20-45) L Monocytes % (Manual) 9 % (1-10) Eosinophils % (Manual) 0 % (0-3) Basophils % (Manual) 0 % (0-2) Band Neutrophils 0 % (0-8) Platelet Estimate Adequate Platelet Morphology Normal Red Blood Cell Morphology Normal Sodium Level 138 MMOL/L (136-145) Potassium Level 4.1 MMOL/L (3.5-5.1) Chloride Level 105 MMOL/L (98-107) Carbon Dioxide Level 28 MMOL/L (21-32) Anion Gap 5 mmol/L (5-15) Blood Urea Nitrogen 20 mg/dL (7-18) H Creatinine 1.6 MG/DL (0.55-1.30) H Estimat Glomerular Filtration Rate 43.6 mL/min (>60) Glucose Level 167 MG/DL (74-106) H Calcium Level 8.4 MG/DL (8.5-10.1) L Height (Feet): 5 Height (Inches): 9.00 Weight (Pounds): 179 Medications Current Medications Medications (Trade) Dose Ordered Sig/Debbie Route PRN Reason Start Time Stop Time Status Last Admin Dose Admin Alprazolam (Xanax) 0.25 mg TID@0000,0900,1700 ORAL 01/07/19 00:00 01/14/19 00:00 01/07/19 09:25 Aspirin (ASA) 81 mg BEDTIME ORAL 01/07/19 21:00 02/06/19 20:59 Bisacodyl (Dulcolax) 10 mg ONCE ORAL 01/07/19 16:00 01/07/19 20:00 Docusate Sodium (Colace) 100 mg THREE TIMES A DAY ORAL 01/08/19 13:00 02/07/19 12:59 Dolutegravir Sodium (Tivicay) 50 mg BEDTIME ORAL 01/07/19 21:00 02/06/19 20:59 UNV Fenofibrate (Tricor) 145 mg DAILY ORAL 01/07/19 09:00 02/06/19 08:59 01/07/19 09:26 Glipizide (Glucotrol) 10 mg DAILY ORAL 01/07/19 09:00 02/06/19 08:59 01/07/19 09:26 Hydromorphone HCl (Dilaudid) 6 mg Q6H PRN ORAL For Pain 01/06/19 19:00 01/13/19 18:59 01/07/19 09:26 Iohexol (OMNIPAQUE-300 100ml) 100 ml NOW PRN INJ Radiology Procedure 01/06/19 15:30 01/08/19 15:19 Levothyroxine Sodium (Synthroid) 200 mcg DAILY@0630 ORAL 01/07/19 06:30 02/06/19 06:29 01/07/19 06:56 Metformin HCl (Glucophage) 500 mg DAILY ORAL 01/08/19 21:00 02/07/19 20:59 Metoclopramide HCl (Reglan) 10 mg Q8H PRN ORAL Nausea & Vomiting 01/07/19 10:00 02/06/19 09:59 Montelukast Sodium (Singulair) 10 mg BEDTIME ORAL 01/07/19 21:00 02/06/19 20:59 Nitroglycerin (Ntg) 0.4 mg Q5M PRN SL Prn Chest Pain 01/07/19 06:00 02/06/19 05:59 Non-Formulary Medication (Non-Formulary Med) 1 ea DAILY ORAL 01/07/19 09:00 02/06/19 08:59 01/07/19 09:26 Non-Formulary Medication (Non-Formulary Med) 1 ea DAILY ORAL 01/07/19 09:00 02/06/19 08:59 UNV Non-Formulary Medication (Non-Formulary Med) 1 ea DAILY ORAL 01/07/19 09:00 02/06/19 08:59 UNV Pantoprazole (Protonix) 40 mg EVERY 12 HOURS ORAL 01/07/19 12:00 02/06/19 11:59 Patient Own Medication (Patient's Own Med) 1 ea HSPRN ORAL 01/06/19 19:00 02/05/19 18:59 UNV Piperacillin Sod/ Tazobactam Sod 3.375 gm/Sodium Chloride 110 ml @ 27.5 mls/hr EVERY 8 HOURS IVPB 01/06/19 22:00 01/11/19 21:59 01/07/19 14:58 Polyethylene Glycol (Miralax) 17 gm BEDTIME ORAL 01/08/19 21:00 02/07/19 20:59 Polyethylene Glycol/ Electrolytes (Nulytely) 4,000 ml ONCE ORAL 01/07/19 16:00 01/07/19 20:00 Quetiapine Fumarate (SEROquel) 300 mg BEDTIME PRN ORAL Insomnia 01/07/19 06:00 02/06/19 05:59 Quetiapine Fumarate (SEROquel) 400 mg QHS ORAL 01/06/19 21:00 02/05/19 20:59 01/06/19 21:18 Sodium Phosphate (Fleet's Sodium Phosl Enema) 133 ml ONCE RECTAL 01/07/19 23:00 01/08/19 04:00 Trimethoprim/ Sulfamethoxazole (Bactrim-DS) 1 tab BID ORAL 01/07/19 09:00 01/14/19 08:59 01/07/19 09:25 Assessment/Plan Problem List: (1) Cellulitis Assessment & Plan: 63-year-old male with left back cellulitis from a prior abscess infected cyst which was I&D. Periwound cellulitis discomfort tenderness erythema with edema. Packing and dressing changes twice daily Okay to shower Antibiotics as per infectious disease We will monitor wound for improvement Thank you for allowing me to participate in patient's care Pain control Okay for diet ICD Codes: L03.90 - Cellulitis, unspecified SNOMED: [id number] Qualifiers: Qualified Codes: L03.90 - Cellulitis, unspecified (2) Abscess Assessment & Plan: Status post incision and drainage of left mid back abscess/ infected cyst by patient's physician in the office prior. Worsening infection cellulitis. Admitted for antibiotics. Continue as above ICD Codes: L02.91 - Cutaneous abscess, unspecified SNOMED: [id number] Mike Barron Jan 07, 2019 15:40
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
[2019-01-07] MEDS ORDERED: Bisacodyl EC 5mg tab ORAL SCH (16:00)
[2019-01-07] MEDS ORDERED: Nulytely 4L ORAL SCH (16:00)
--- NOTE | 2019-01-07 16:30 | History and Physical Report ---
DATE OF ADMISSION: 01/06/2019 DATE AND TIME SEEN: 01/07/2019 at 9 a.m. CONSULTANTS: 1. Mike Barron M.D. 2. Meir Brady M.D. 3. Yumiko Louis M.D. 4. Guzman Can M.D. 5. Parviz Scott M.D. CHIEF COMPLAINT: AIDS, back abscess, fevers, chills, rectal bleed, and bacteremia. BRIEF HISTORY: This is a 63-year-old male, who lives at home. Apparently, he went to his doctor last week and had a back drainage of abscess and it gotten worse, came to [place] last night, diagnosed with draining abscess on the back as well as bacteremia, and admitted to medical floor for further treatment. Currently, slightly anxious in bed, no complaint. REVIEW OF SYSTEMS: No chest pain. No shortness of breath. No nausea, vomiting, or diarrhea. PAST MEDICAL HISTORY: Includes diabetes, hypertension, AIDS, back abscess, fever, chills, and rectal bleed. PAST SURGICAL HISTORY: Unknown. ALLERGIES: Denies. MEDICATIONS: Include metformin, montelukast, aspirin, Reglan, Bactrim, glipizide, levothyroxine, and Zosyn. SOCIAL HISTORY: No smoking. No alcohol. No intravenous drug abuse. FAMILY HISTORY: Noncontributory. PHYSICAL EXAMINATION: GENERAL: Slightly anxious in bed, oriented x3, in no acute distress. VITAL SIGNS: Temperature 97 degrees, pulse 69, respirations 19, and blood pressure 102/75. CARDIOVASCULAR: No murmur. LUNGS: Distant and clear. ABDOMEN: Bowel sound positive. Nontender. Nondistended. EXTREMITIES: No cyanosis, clubbing, or edema. NEUROLOGIC: The patient moves all extremities, slightly weak. BACK: Back area dressing clean and dry. LABORATORY DATA: Laboratories at this time show H and H 13/41, otherwise CBC is normal. BMP show BUN and creatinine 20/1.6, glucose 167. Troponin 0.00. Albumin 4.1. INR is 1.0, PTT 29. Urinalysis shows 4+ glucose. ASSESSMENT: 1. Bacteremia. 2. Abscess on the back. 3. Fevers and chills. 4. Rectal bleed. 5. AIDS. 6. ME. 7. Diabetes. PLAN: 1. Blood pressure, blood sugar, and pain control. 2. Wound care. 3. Dietary followup. 4. PT evaluation. 5. CBC and BMP in the morning. Dom Dyer D.O. DR: ROSANNA JOB#: [id number] CC:
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
--- NOTE | 2019-01-07 19:49 | NUR ---
NURSE NOTES: Received patient in bed, awake, alert, oriented,ambulatory with steady gate, family is at bedside. No acute distress noted, no IV access at this time, MD is aware, will attempt to insert a new one, patient is a hard draw. Call light is within reach, bed is in low position, locked, alarm is on. Will continue to monitor for comfort and safety.
[2019-01-07 20:00] VITALS: BP 132/83
[2019-01-07] MEDS: JARDIANCE 10 MG ORAL SCH (20:00)
[2019-01-07] MEDS: ETRAVIRINE ORAL SCH (20:00)
[2019-01-07] MEDS: DESCOVY ORAL SCH (20:00)
[2019-01-07] MEDS ORDERED: DEXLANSOPRAZOLE ORAL SCH (20:00)
[2019-01-07] MEDS ORDERED: JARDIANCE 10 MG ORAL SCH (20:00)
[2019-01-07] MEDS: Montelukast 10mg tablet ORAL SCH (20:44)
[2019-01-07] MEDS: Aspirin Baby 81mg ORAL SCH (20:44)
[2019-01-07] MEDS: DOLUTEGRAVIR SODIUM 50 MG ORAL SCH (21:00)
[2019-01-07] MEDS: QUEtiapine 200mg tab ORAL SCH (21:00)
--- NOTE | 2019-01-07 22:24 | NUR ---
NURSE NOTES: RN attempted to restart IV, un successful, will try with vein finder, patient verbalized understanding and agreed for another try, administration of antibiotic will be delayed due to no IV access at this time.
[2019-01-07] MEDS ORDERED: Fleet's Enema 133ml RECTAL SCH (23:00)
[2019-01-08] VITALS: BP 133/79
[2019-01-08] MEDS: ALPRAZolam 0.25mg tab ORAL SCH ×3 (00:30→17:00)
--- NOTE | 2019-01-08 00:30 | NUR ---
Patient received an fleets enema as ordered, but wasn't able to have a bowel movement, expressed concern about it and a possibility of infection , MD was notified, CN is aware.
[2019-01-08] MEDS: Piperacillin/Tazobactam 3.375 GM in NS 110 ML IVPB SCH ×3 (00:50→16:32)
--- NOTE | 2019-01-08 03:30 | Consultation ---
DATE OF CONSULTATION: 01/07/2019 PSYCHOTHERAPY CONSULTATION PROGRESS NOTE HISTORY OF PRESENT ILLNESS: The patient is a 63-year-old male patient from [place]. The patient was brought into the hospital for sepsis. He has been feeling depressed and anxious, and for these reasons, he was referred for psychotherapeutic services. I assessed this patient. The patient states that he has been treated in the past for depression. He states that he has been anxious recently. Because of his current medical condition, he is reporting that he has been struggling with himself. He states that he also has as well, which has also impacted the relationship because the patient states he feels more tired now. The patient needs assistance and cared for at home. The patient has been feeling anxious and helpless and depressive due to his medical condition. However, he denies suicidal or homicidal thoughts of ideation. Denies any auditory or visual hallucinations. The patient is very compliant and is able to communicate and articulate his thoughts and needs. He states that he does take medications for anxiety now. PAST MEDICAL HISTORY: Include a history of pneumonia, cellulitis, GERD, and GI bleed. ALLERGIES: The patient has no known drug allergies. SUBSTANCE ABUSE HISTORY: The patient denies history of alcohol use, illicit substance use, or smoking cigarettes. PSYCHIATRIC HISTORY: The patient has a history of anxiety and depression according to his self report. For this reason, he has been treated with psychotropic medications in the past. SOCIAL HISTORY: The patient is a pleasant 63-year-old male patient. He lives in [place], who is financially sustained at this time. MENTAL STATUS EXAMINATION: Alert and oriented to person, place, time, and situation. Mood is anxious. Affect is congruent. Thought process, disorganized. Thought content, linear. He has fair attention and concentration. Fair insight, judgment, and impulse control. ASSESSMENT AND PLAN: I assessed the patient and provided the patient with, 1. Supportive psychotherapy, which would provide the patient with means depression and encouraging him to articulate his thoughts positive communication skills. 2. Cognitive behavioral interventions and encouraging the patient to articulate his thoughts and needs and assisting him in modifying his negative thoughts, cognitive behavioral therapy . DIAGNOSIS: Bipolar 2 disorder. positive coping skills . This clinician reviewed the patient's chart and discussed the treatment with treatment team. Katherine Maravilla PsyD. DR: LAURA JOB#: [id number] CC:
--- NOTE | 2019-01-08 05:37 | NUR ---
At 0440 am Nursing building cleaning supervisor called , message was left in regards to the patients change in condition, responded that no new orders at this time, stop the prep for colonoscopy and he will see the patient as he makes his rounds. message was relayed to the patient. CN is aware.
--- NOTE | 2019-01-08 07:28 | NUR ---
HAND-OFF: Report given to Maco SPANN.
[2019-01-08 08:01] VITALS: BP 137/86
[2019-01-08 08:39] LABS: BASOPHILS % (AUTO) 1.1 % (0.0-2.0); EOSINOPHILS % (AUTO) 1.8 % (0.0-3.0); HEMATOCRIT 41.9 % (42.0-52.0); HEMOGLOBIN 14.2 G/DL (14.2-18.0); LYMPHOCYTES % (AUTO) 20.6 % (20.0-45.0); MEAN CORPUSCULAR VOLUME 86 FL (80-99); MONOCYTES % (AUTO) 5.7 % (1.0-10.0); NEUTROPHILS % (AUTO) 70.9 % (45.0-75.0); PLATELET COUNT 257 K/UL (150-450); RED BLOOD COUNT 4.87 M/UL (4.70-6.10); RED CELL DISTRIBUTION WIDTH 13.1 % (11.6-14.8); WHITE BLOOD COUNT 3.8 K/UL (4.8-10.8)
[2019-01-08 08:51] LABS: ANION GAP 7 mmol/L (5-15); BLOOD UREA NITROGEN 17 mg/dL (7-18); CALCIUM 8.7 MG/DL (8.5-10.1); CARBON DIOXIDE 28 MMOL/L (21-32); CHLORIDE 106 MMOL/L (98-107); CREATININE 1.4 MG/DL (0.55-1.30); POTASSIUM 4.1 MMOL/L (3.5-5.1); SODIUM 141 MMOL/L (136-145)
[2019-01-08 08:56] LABS: INR 1.1 (0.9-1.1)
--- NOTE | 2019-01-08 08:58 | General Progress Note ---
Assessment/Plan Assessment/Plan: (1) Back pain (2) Abscess s/p I+D (3) AID/HIV (4) Peripheral Neuropathy Patient will be continued on Dilaudid D/w Dr. Can and he concurred. Subjective Date patient seen: Jan 08, 2019 Time patient seen: 07:45 - am Constitutional: Reports: no symptoms HEENT: Reports: no symptoms Cardiovascular: Reports: no symptoms Respiratory: Reports: no symptoms Gastrointestinal/Abdominal: Reports: no symptoms Genitourinary: Reports: no symptoms Neurologic/Psychiatric: Reports: weakness Endocrine: Reports: no symptoms Hematologic/Lymphatic: Reports: no symptoms Allergies: Coded Allergies: No Known Allergies (Unverified , 01/06/19) Subjective Patient is in bed and reports pain has been tolerated on the Dilaudid taking one dose in the last 24hrs. He has no new complaints at this time. Objective Last 24 Hour Vital Signs Date Time Temp Pulse Resp B/P (MAP) Pulse Ox O2 Delivery O2 Flow Rate FiO2 01/08/19 08:01 97.5 65 18 137/86 (103) 97 65 01/08/19 00:19 97.0 01/08/19 00:00 97.3 81 20 133/79 (97) 98 01/07/19 21:00 Room Air 01/07/19 20:00 97.0 81 20 132/83 (99) 97 81 01/07/19 12:00 98.1 80 18 123/79 (94) 98 80 01/07/19 09:00 Room Air Intake and Output 01/07/19 01/08/19 19:00 07:00 Intake Total 2410 ml 800 ml Output Total 300 ml Balance 2410 ml 500 ml Intake Oral 2410 ml 800 ml Output Urine Total 300 ml # Voids 5 6 Laboratory Tests 01/08/19 08:15: White Blood Count 3.8L, Red Blood Count 4.87, Hemoglobin 14.2, Hematocrit 41.9L , Mean Corpuscular Volume 86, Mean Corpuscular Hemoglobin 29.2, Mean Corpuscular Hemoglobin Concent 33.9, Red Cell Distribution Width 13.1, Platelet Count 257, Mean Platelet Volume 6.7, Neutrophils (%) (Auto) 70.9, Lymphocytes (% ) (Auto) 20.6, Monocytes (%) (Auto) 5.7, Eosinophils (%) (Auto) 1.8, Basophils ( %) (Auto) 1.1, Prothrombin Time 11.2, Prothromb Time International Ratio 1.1, Activated Partial Thromboplast Time 31, Sodium Level 141, Potassium Level 4.1, Chloride Level 106, Carbon Dioxide Level 28, Anion Gap 7, Blood Urea Nitrogen 17 , Creatinine 1.4H, Estimat Glomerular Filtration Rate 50.9, Glucose Level 95, Calcium Level 8.7 Height (Feet): 5 Height (Inches): 9.00 Weight (Pounds): 179 General Appearance: no apparent distress, alert EENT: PERRL/EOMI, normal ENT inspection Neck: non-tender, normal alignment Cardiovascular: normal rate, regular rhythm Respiratory/Chest: lungs clear, normal breath sounds Abdomen: non tender, soft Edema: no edema noted Generalized Neurologic: alert, oriented x 3 Skin: warm/dry Jose F Clark Jan 08, 2019 08:58
[2019-01-08] MEDS: GlipiZIDE 5mg tab ORAL SCH (09:31)
[2019-01-08] MEDS: ETRAVIRINE ORAL SCH ×2 (09:44→18:55)
[2019-01-08] MEDS: DESCOVY ORAL SCH (09:44)
[2019-01-08] MEDS: JARDIANCE 10 MG ORAL SCH (09:44)
[2019-01-08] MEDS: DEXLANSOPRAZOLE ORAL SCH ×3 (09:45→18:38)
[2019-01-08] MEDS: Bactrim-DS 1 tab ORAL SCH ×2 (09:45→18:55)
--- NOTE | 2019-01-08 10:22 | NUR ---
NURSE NOTES: PT AXOX4, CALM, IN NO APPARENT DISTRESS. PT DENIES SOB OR DIZZINESS WHEN AMBULATING. PT WAS EDUCATED ON FALL PRECAUTIONS AND TO NOT WALK WHEN FEELING DIZZY AND CALL RN/STAFF. PT VERBALIZED UNDERSTANDING. RN ADMINISTERED 0900 MEDICATIONS AND REVIEWED MEDICATIONS ONE BY ONE. PT HAD MEDICATION FROM HOME AT BEDSIDE DURING MORNING INITIAL ROUNDING. RN ATTEMPTED TO EDUCATE PT ON HOSPITAL POLICY AND THE RISK OF ADVERSE REACTIONS IF PT TAKES MEDICATION THAT IS NOT PROVIDED AND DOCUMENTED BY OUR PHARMACY. PT INTERRUPTED RN AND STATED "I KNOW ALL ABOUT YOUR POLICY AND THE HOSPITAL'S POLICY. 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 PT CONTINUED TO STATE THAT BRINGS IN HIS HOME MEDICATIONS AND WILL TAKE THEM ACCORDINGLY. RN EDUCATED PT THAT BROUGHT THE MEDICATIONS FOR US TO DISPENSE AND RN CAN GO OVER THE MEDICATIONS ONE BY ONE. PT WAS ADVISED NOT TO TAKE MEDICATIONS AT BEDSIDE AT RISK OF TAKING SAME MEDICATION TWICE. PT VERBALIZED AGREEMENT. PT REFUSED CERTAIN MEDS, STATING THE LARGE ONES GET CAUGHT IN HIS THROAT. RN MADE PT AWARE THERE IS SPEECH THERAPIST ON THE CASE.
--- NOTE | 2019-01-08 10:28 | NUR ---
NURSE NOTES: RN SPOKE TO ASHLEY AT GI LAB AND MADE AWARE PT ONLY FINISHED HALF OF NULTYELY AND HAD 1 SOLID BOWEL MOVEMENT. FREELANCE DATA ENTRY RN HAD MADE RN AWARE THAT SHE CONTACTED DR LOPEZ AND MADE AWARE. PER ASHLEY, HE WILL CONTACT DR LOPEZ FOR NEW ORDERS. NEW ORDER FOR TAP WATER ENEMA NOTED. RN EDUCATED PT TAP WATER ENEMA ORDERED TO HELP CLEAR BOWELS FOR PENDING COLONOSCOPY. PT REFUSED TAP WATER ENEMA, STATING HE WOULD LIKE TO TALK TO DR LOPEZ BEFORE PROCEEDING WITH ANYTHING. RN LEFT MESSAGE FOR GI LAB AND DR LOPEZ REGARDING UPDATE. PT STATES HE WANTS HIS DRESSING OF LEFT UPPER BACK TO BE CHANGED AT A LATER TIME AND BE UNHOOKED FROM HIS IV UNTIL A LATER TIME. PT IN NO APPARENT DISTRESS AND EDUCATED TO USE CALL LIGHT FOR ANY ASSISTANCE. PT VERBALIZED UNDERSTANDING.
[2019-01-08] MEDS ORDERED: Neosporin Oint Ud Pkt TOPIC SCH (10:30)
--- NOTE | 2019-01-08 11:19 | GI Progress Note ---
Assessment/Plan Problems: (1) Rectal bleed ICD Codes: K62.5 - Hemorrhage of anus and rectum SNOMED: 91196589 (2) Abnormal lower esophageal sphincter relaxation ICD Codes: K22.0 - Achalasia of cardia SNOMED: 76236041, 25290444 (3) GI bleed ICD Codes: K92.2 - Gastrointestinal hemorrhage, unspecified SNOMED: 31348153 (4) GERD (gastroesophageal reflux disease) ICD Codes: K21.9 - Gastro-esophageal reflux disease without esophagitis SNOMED: 022733689 (5) Dysphagia ICD Codes: R13.10 - Dysphagia, unspecified SNOMED: 08113191, 129655989 Status: unchanged Status Narrative Discussed with Dr. Scott. Assessment/Plan EGD and colonoscopy to be rescheduled until tomorrow, patient not prepped well Maintain clear liquid diet, n.p.o. at midnight Hold all blood thinners Abdominal pelvis CT reviewed noted with constipation and history of small bowel surgery Protonix twice daily twice daily Zofran as needed [facility] We will follow with additional recommendations postprocedure The patient was seen and examined at bedside and all new and available data was reviewed in the patients chart. I agree with the above findings, impression and plan. (Patient seen earlier today. Signature stamp does not reflect patient encounter time.). - Parviz Scott MD Subjective Subjective still has formed stool Objective Last 24 Hour Vital Signs Date Time Temp Pulse Resp B/P (MAP) Pulse Ox O2 Delivery O2 Flow Rate FiO2 01/08/19 08:01 97.5 65 18 137/86 (103) 97 65 01/08/19 00:19 97.0 01/08/19 00:00 97.3 81 20 133/79 (97) 98 01/07/19 21:00 Room Air 01/07/19 20:00 97.0 81 20 132/83 (99) 97 81 01/07/19 12:00 98.1 80 18 123/79 (94) 98 80 Intake and Output 01/07/19 01/08/19 19:00 07:00 Intake Total 2410 ml 800 ml Output Total 300 ml Balance 2410 ml 500 ml Intake Oral 2410 ml 800 ml Output Urine Total 300 ml # Voids 5 6 Laboratory Tests Test 01/08/19 08:15 01/08/19 08:45 White Blood Count 3.8 K/UL (4.8-10.8) L Red Blood Count 4.87 M/UL (4.70-6.10) Hemoglobin 14.2 G/DL (14.2-18.0) Hematocrit 41.9 % (42.0-52.0) L Mean Corpuscular Volume 86 FL (80-99) Mean Corpuscular Hemoglobin 29.2 PG (27.0-31.0) Mean Corpuscular Hemoglobin Concent 33.9 G/DL (32.0-36.0) Red Cell Distribution Width 13.1 % (11.6-14.8) Platelet Count 257 K/UL (150-450) Mean Platelet Volume 6.7 FL (6.5-10.1) Neutrophils (%) (Auto) 70.9 % (45.0-75.0) Lymphocytes (%) (Auto) 20.6 % (20.0-45.0) Monocytes (%) (Auto) 5.7 % (1.0-10.0) Eosinophils (%) (Auto) 1.8 % (0.0-3.0) Basophils (%) (Auto) 1.1 % (0.0-2.0) Prothrombin Time 11.2 SEC (9.30-11.50) Prothromb Time International Ratio 1.1 (0.9-1.1) Activated Partial Thromboplast Time 31 SEC (23-33) Sodium Level 141 MMOL/L (136-145) Potassium Level 4.1 MMOL/L (3.5-5.1) Chloride Level 106 MMOL/L (98-107) Carbon Dioxide Level 28 MMOL/L (21-32) Anion Gap 7 mmol/L (5-15) Blood Urea Nitrogen 17 mg/dL (7-18) Creatinine 1.4 MG/DL (0.55-1.30) H Estimat Glomerular Filtration Rate 50.9 mL/min (>60) Glucose Level 95 MG/DL (74-106) Calcium Level 8.7 MG/DL (8.5-10.1) Stool Occult Blood Pending Height (Feet): 5 Height (Inches): 9.00 Weight (Pounds): 179 General Appearance: WD/WN, no apparent distress, alert Cardiovascular: normal rate Respiratory/Chest: normal breath sounds, no respiratory distress Abdominal Exam: normal bowel sounds, non tender, soft Extremities: normal range of motion, non-tender Theodore Stewart NP Jan 08, 2019 11:19
--- NOTE | 2019-01-08 11:20 | NUR ---
NURSE NOTES: BRE (PHOTOGRAMMETRIC STEREO COMPILER) SPOKE TO PT AT BEDSIDE. NEW ORDER TO START PT ON CLEAR LIQUID DIET AND EGD/COLONOSCOPY FOR TOMORROW. GI LAB ASHLEY MADE AWARE.
[2019-01-08 11:46] VITALS: BP 149/86
[2019-01-08] MEDS: Docusate 100mg cap ORAL SCH ×2 (13:40→18:37)
--- NOTE | 2019-01-08 14:18 | NUR ---
NURSE NOTES: WHEN RN ADMINISTERED SCHEDULED 1300HR MEDICATIONS, PT ASKED "SO WHEN IS THE NEXT TIME I'LL BE BOTHERED?". PER PT, HE HASN'T GOTTEN ANY SLEEP ALL NIGHT. RN EDUCATED PT ON MEDICATION AND V/S SCHEDULE AND HOSPITAL POLICY ON HOURLY ROUNDING. PER PT, HE DOES NOT WANT V/S DONE AT 1500-1600HRS AND WANTS THE SCHEDULED MAGNESIUM CITRATE AND MIRALAX (FOR BOWEL PREP) AFTER DINNER INSTEAD OF SCHEDULED 1600HRS. PER PT, STAFF WILL NOT WAKE UP PT UNLESS PT CALLS OR ABSOLUTELY NECESSARY.
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
--- NOTE | 2019-01-08 14:30 | Progress Note ---
DATE: 01/08/2019 SUBJECTIVE: This is a 63-year-old male patient, who has abscess, skin rash, and high levels of anxiety. That is why, his attending physician has requested daily psychiatric consultation. MENTAL STATUS EXAMINATION: This is a 63-year-old male. Appearance is disheveled. Attitude, irritable and agitated. Affect, guarded and restricted. Intellect poor. Mood, depressed and anxious. Motor activity, psychomotor agitation. Attention span is poor. Orientation x2. Speech is pressured. Thought process, disorganized and illogical. Insight and judgment is poor. DIAGNOSIS: Bipolar 2. PLAN: Xanax 0.25 mg three times a day and Seroquel 400 mg at bedtime to stabilize his mood . A 20 minutes of cognitive behavioral therapy provided to help him identify negative thoughts and help to convert his negative thoughts to more positive thoughts to reduce depression, anxiety, mood lability. , December 17-year-old history drop homicidality. Chart reviewed. Discussed with staff. Seen and assessed in his room. Yumiko Louis M.D. DR: DALIA JOB#: [id number] CC:
--- NOTE | 2019-01-08 14:32 | General Progress Note ---
Assessment/Plan Problem List: (1) AIDS ICD Codes: B20 - Human immunodeficiency virus [HIV] disease SNOMED: 61425228 (2) Diabetes ICD Codes: E11.9 - Type 2 diabetes mellitus without complications SNOMED: 30117013 (3) Abscess ICD Codes: L02.91 - Cutaneous abscess, unspecified SNOMED: 653720087 (4) Cellulitis ICD Codes: L03.90 - Cellulitis, unspecified SNOMED: 719621041 Qualifiers: Qualified Codes: L03.90 - Cellulitis, unspecified (5) Rectal bleed ICD Codes: K62.5 - Hemorrhage of anus and rectum SNOMED: 48185591 (6) Pneumonia ICD Codes: J18.9 - Pneumonia, unspecified organism SNOMED: 913187711 (7) Sepsis ICD Codes: A41.9 - Sepsis, unspecified organism SNOMED: 95381811 Qualifiers: Qualified Codes: A41.9 - Sepsis, unspecified organism Status: stable, progressing Assessment/Plan: wound care abx bs pain control pt diet cbc bmp am aru eval Subjective Constitutional: Reports: weakness Allergies: Coded Allergies: No Known Allergies (Unverified , 01/06/19) All Systems: reviewed and negative except above Subjective sleepy calm Objective Last 24 Hour Vital Signs Date Time Temp Pulse Resp B/P (MAP) Pulse Ox O2 Delivery O2 Flow Rate FiO2 01/08/19 11:46 97.3 69 18 149/86 (107) 99 01/08/19 08:01 97.5 65 18 137/86 (103) 97 65 01/08/19 00:19 97.0 01/08/19 00:00 97.3 81 20 133/79 (97) 98 01/07/19 21:00 Room Air 01/07/19 20:00 97.0 81 20 132/83 (99) 97 81 Intake and Output 01/07/19 01/08/19 19:00 07:00 Intake Total 2410 ml 800 ml Output Total 300 ml Balance 2410 ml 500 ml Intake Oral 2410 ml 800 ml Output Urine Total 300 ml # Voids 5 6 Laboratory Tests 01/08/19 08:15: White Blood Count 3.8L, Red Blood Count 4.87, Hemoglobin 14.2, Hematocrit 41.9L , Mean Corpuscular Volume 86, Mean Corpuscular Hemoglobin 29.2, Mean Corpuscular Hemoglobin Concent 33.9, Red Cell Distribution Width 13.1, Platelet Count 257, Mean Platelet Volume 6.7, Neutrophils (%) (Auto) 70.9, Lymphocytes (% ) (Auto) 20.6, Monocytes (%) (Auto) 5.7, Eosinophils (%) (Auto) 1.8, Basophils ( %) (Auto) 1.1, Prothrombin Time 11.2, Prothromb Time International Ratio 1.1, Activated Partial Thromboplast Time 31, Sodium Level 141, Potassium Level 4.1, Chloride Level 106, Carbon Dioxide Level 28, Anion Gap 7, Blood Urea Nitrogen 17 , Creatinine 1.4H, Estimat Glomerular Filtration Rate 50.9, Glucose Level 95, Calcium Level 8.7 01/08/19 08:45: Stool Occult Blood Negative Height (Feet): 5 Height (Inches): 9.00 Weight (Pounds): 179 General Appearance: lethargic EENT: normal ENT inspection Neck: normal alignment Cardiovascular: normal peripheral pulses, normal rate, regular rhythm Respiratory/Chest: chest wall non-tender, lungs clear, normal breath sounds Abdomen: normal bowel sounds, non tender, soft Extremities: normal inspection Edema: no edema noted Arm (L), no edema noted Arm (R), no edema noted Leg (L), no edema noted Leg (R), no edema noted Pedal (L), no edema noted Pedal (R), no edema noted Generalized Neurologic: motor weakness Skin: normal pigmentation, warm/dry Dom Dyer DO Jan 08, 2019 14:32
--- NOTE | 2019-01-08 15:03 | Surgery Progress Note ---
Surgery Progress Note Subjective Symptoms: improved, tolerating diet, voiding well, passing flatus, pain decreased Objective Last 24 Hour Vital Signs Date Time Temp Pulse Resp B/P (MAP) Pulse Ox O2 Delivery O2 Flow Rate FiO2 01/08/19 11:46 97.3 69 18 149/86 (107) 99 01/08/19 08:01 97.5 65 18 137/86 (103) 97 65 01/08/19 00:19 97.0 01/08/19 00:00 97.3 81 20 133/79 (97) 98 01/07/19 21:00 Room Air 01/07/19 20:00 97.0 81 20 132/83 (99) 97 81 I&O Intake and Output 01/07/19 01/08/19 19:00 07:00 Intake Total 2410 ml 800 ml Output Total 300 ml Balance 2410 ml 500 ml Intake Oral 2410 ml 800 ml Output Urine Total 300 ml # Voids 5 6 Dressing: saturated Wound: clean Cardiovascular: RSR Respiratory: clear Abdomen: soft, flat, non-tender, present bowel sounds Extremities: no edema, no tenderness, no cyanosis Laboratory Tests Test 01/08/19 08:15 01/08/19 08:45 White Blood Count 3.8 K/UL (4.8-10.8) L Red Blood Count 4.87 M/UL (4.70-6.10) Hemoglobin 14.2 G/DL (14.2-18.0) Hematocrit 41.9 % (42.0-52.0) L Mean Corpuscular Volume 86 FL (80-99) Mean Corpuscular Hemoglobin 29.2 PG (27.0-31.0) Mean Corpuscular Hemoglobin Concent 33.9 G/DL (32.0-36.0) Red Cell Distribution Width 13.1 % (11.6-14.8) Platelet Count 257 K/UL (150-450) Mean Platelet Volume 6.7 FL (6.5-10.1) Neutrophils (%) (Auto) 70.9 % (45.0-75.0) Lymphocytes (%) (Auto) 20.6 % (20.0-45.0) Monocytes (%) (Auto) 5.7 % (1.0-10.0) Eosinophils (%) (Auto) 1.8 % (0.0-3.0) Basophils (%) (Auto) 1.1 % (0.0-2.0) Prothrombin Time 11.2 SEC (9.30-11.50) Prothromb Time International Ratio 1.1 (0.9-1.1) Activated Partial Thromboplast Time 31 SEC (23-33) Sodium Level 141 MMOL/L (136-145) Potassium Level 4.1 MMOL/L (3.5-5.1) Chloride Level 106 MMOL/L (98-107) Carbon Dioxide Level 28 MMOL/L (21-32) Anion Gap 7 mmol/L (5-15) Blood Urea Nitrogen 17 mg/dL (7-18) Creatinine 1.4 MG/DL (0.55-1.30) H Estimat Glomerular Filtration Rate 50.9 mL/min (>60) Glucose Level 95 MG/DL (74-106) Calcium Level 8.7 MG/DL (8.5-10.1) Stool Occult Blood Negative (NEGATIVE) Plan Problems: (1) Cellulitis Assessment & Plan: 63-year-old male with left back cellulitis from a prior abscess infected cyst which was I&D. Periwound cellulitis discomfort tenderness erythema with edema. Packing and dressing changes twice daily Okay to shower Antibiotics as per infectious disease We will monitor wound for improvement Thank you for allowing me to participate in patient's care Patient overall improving. Discussed care plan and discharge planning with him. He states his will come and we can teach him wound care and he can anticipate to that at home with his . Otherwise he does not feel comfortable with home health nursing again. Has considered SNF. Pain control Okay for diet (2) Abscess Assessment & Plan: Status post incision and drainage of left mid back abscess/ infected cyst by patient's physician in the office prior. Worsening infection cellulitis. Admitted for antibiotics. Continue as above Mike Barron Jan 08, 2019 15:03
[2019-01-08] MEDS ORDERED: Polyethylene Glycol 238gm bottle ORAL SCH (16:00)
[2019-01-08] MEDS ORDERED: Magnesium Citrate Liq Btl ORAL SCH (16:00)
[2019-01-08] MEDS: HYDROmorphone 4mg tab ORAL PRN (16:32)
[2019-01-08] MEDS ORDERED: Neosporin Oint 15gm TOPIC SCH (18:00)
[2019-01-08] MEDS ORDERED: HYDROmorphone 1mg/ml Carpuject IVP PRN (18:30)
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
--- NOTE | 2019-01-08 19:45 | NUR ---
HAND-OFF: Report given to Lamberto OSUNA RN.
[2019-01-08 20:00] VITALS: BP 127/82
[2019-01-08] MEDS ORDERED: Omnipaque-300 100ml vial INJ ONE (20:15)
--- NOTE | 2019-01-08 20:20 | NUR ---
NURSE NOTES: RN RECEIVED ORDER FROM DR MIRAMONTES TO TRANSFER TO ICU. FRANCESCO Malagon AND GABRIEL Haile RN MADE AWARE. ORDER ENTERED.
--- NOTE | 2019-01-08 20:25 | NUR ---
NURSE NOTES: Received patient awake,alert,verbal,ambulates with a cane,essentially normal vital signs. Patient unable to tolerate his p.o. medications because of his "absence of esophageal valves", he also vomited once yellowish clear fluid, and also patient noticed progressively enlarging abdomen. He passed one solid round stool. Spoke with Dr Scott and ordered stat CT of the abdomen with contrast. Dr Dyer ordered patient to be transferred to ICU.
[2019-01-08] MEDS: QUEtiapine 200mg tab ORAL SCH (21:00)
[2019-01-08] MEDS: Montelukast 10mg tablet ORAL SCH (21:00)
[2019-01-08] MEDS ORDERED: metFORMIN 500mg tab ORAL SCH (21:00)
[2019-01-08] MEDS ORDERED: TRIAZOLAM 0.25 MG ORAL PRN (21:00)
[2019-01-08] MEDS: Aspirin Baby 81mg ORAL SCH (21:00)
[2019-01-08] MEDS ORDERED: Miralax 17gm pkt ORAL SCH (21:00)
[2019-01-08] MEDS: DOLUTEGRAVIR SODIUM 50 MG ORAL SCH (21:00)
--- NOTE | 2019-01-08 21:00 | NUR ---
NURSE NOTES: Patient off the floor for CT scan of the abdomen, but patient unable to tolerate the procedure( unable to lie flat) Patient transferred to ICU as ordered.Report given to ZANA Damon.
[2019-01-08] MEDS ORDERED: Nitroglycerin Subl 0.4mg tab SL PRN (21:45)
[2019-01-08 22:00] VITALS: BP 148/87
--- NOTE | 2019-01-08 22:30 | NUR ---
NURSE NOTES: Called Dr. Scott, left a message regarding CT scan was not done due to patient unable to lie flat as well as patient unable to tolerate Mg citrate.
--- NOTE | 2019-01-08 22:30 | NUR ---
NURSE NOTES: Received transfer from [facility]. Patient awake and alert. On room air. No shortness of breath. Sinus rhythm on the monitor. With left forearm g 22, patent and intact. Oriented to the room, call light. Verbalized understanding. Head of bed elevated. Call light within visible reach. bed alarm on. Locked and in low position.
--- NOTE | 2019-01-08 22:45 | NUR ---
NURSE NOTES: Patient's came in with a bottle of pills from home. Accompanied to the pharmacist. Received 1 Halcion pill, properly labeled from the Pharmacist. The rest of the bottle of pills returned to the to be sent back home
[2019-01-08] MEDS ORDERED: QUEtiapine 200mg tab ORAL PRN ×2 (22:50→22:52)
[2019-01-08 23:00] VITALS: BP 143/86
--- NOTE | 2019-01-08 23:00 | NUR ---
NURSE NOTES: Assisted patient to the commode. Assisted with sponge bath. Change of linens done.
--- NOTE | 2019-01-08 23:30 | NUR ---
NURSE NOTES: Patient vomited about 30ml of clear greenish liquid. Mouth care done. PRN Kay not yet due until 0030H. Explained to the patient
--- NOTE | 2019-01-08 23:45 | NUR ---
NURSE NOTES: Patient vomited about 75ml of clear greenish liquid.
--- NOTE | 2019-01-08 23:57 | NUR ---
NURSE NOTES: Left a message for Dr. Scott for the 2nd time. Awaiting for return call.
[2019-01-09] VITALS (19 sets, daily range): BP systolic 109–171; BP diastolic 68–91
[2019-01-09] MEDS: Hydromorphone 0.5mg/0.5ml inj IVP PRN ×3 (00:49→13:14)
[2019-01-09] MEDS: Piperacillin/Tazobactam 3.375 GM in NS 110 ML IVPB SCH ×4 (00:53→23:56)
--- NOTE | 2019-01-09 00:56 | NUR ---
NURSE NOTES: Patient requested his Xanax to be taken at 0030H. At 0030H, patient reported that he's nauseous and might throw up. PRN Kay given. As per him he would like to wait 15 minutes more before he takes the Xanax to make sure he will not vomit and end up throwing up the medication. Returned the Xanax to the [facility], witnessed by another RN. Addendum: 01/09/19 at 0420 by PRASANTH ESPINOSA RN NURSE NOTES: Returned Xanax in the Pyxis, not [facility]
[2019-01-09] MEDS: ALPRAZolam 0.25mg tab ORAL SCH ×4 (01:10→23:56)
--- NOTE | 2019-01-09 01:10 | NUR ---
NURSE NOTES: As per patient, he does not feel that he will throw up. Xanax and Halcion given.
--- NOTE | 2019-01-09 02:00 | NUR ---
NURSE NOTES: Assisted patient to the bedside commode, 1 large greenish formed BM.
--- NOTE | 2019-01-09 03:30 | NUR ---
NURSE NOTES: Assisted patient to the commode, passed 1 formed BM.
--- NOTE | 2019-01-09 04:00 | NUR ---
NURSE NOTES: Dressing at left upper back changed. Minimal discharge, no odor noted.
--- NOTE | 2019-01-09 05:00 | NUR ---
NURSE NOTES: Patient awake. As per him he doesn't usually sleep at night. No report of any pain or discomfort at this time.
[2019-01-09 05:07] LABS: BASOPHILS % (AUTO) 0.7 % (0.0-2.0); EOSINOPHILS % (AUTO) 0.5 % (0.0-3.0); HEMATOCRIT 44.1 % (42.0-52.0); MEAN CORPUSCULAR VOLUME 86 FL (80-99); MONOCYTES % (AUTO) 5.8 % (1.0-10.0); PLATELET COUNT 308 K/UL (150-450); RED BLOOD COUNT 5.13 M/UL (4.70-6.10); RED CELL DISTRIBUTION WIDTH 13.2 % (11.6-14.8); WHITE BLOOD COUNT 6.9 K/UL (4.8-10.8)
[2019-01-09 05:22] LABS: INR 1.1 (0.9-1.1)
[2019-01-09 05:45] LABS: ANION GAP 14 mmol/L (5-15); BLOOD UREA NITROGEN 27 mg/dL (7-18); CALCIUM 9.1 MG/DL (8.5-10.1); CARBON DIOXIDE 23 MMOL/L (21-32); CHLORIDE 105 MMOL/L (98-107); CREATININE 1.4 MG/DL (0.55-1.30); POTASSIUM 4.1 MMOL/L (3.5-5.1); SODIUM 142 MMOL/L (136-145)
--- NOTE | 2019-01-09 06:53 | NUR ---
NURSE NOTES: Assisted to the bedside commode. 1 small formed BM.
--- NOTE | 2019-01-09 07:03 | NUR ---
HAND-OFF: Report given to ZANA Whittington.
[2019-01-09] MEDS ORDERED: JARDIANCE 10 MG ORAL SCH (09:00)
[2019-01-09] MEDS ORDERED: DESCOVY ORAL SCH (09:00)
[2019-01-09] MEDS: INTELENCE 200 MG ORAL SCH ×2 (09:00→17:37)
[2019-01-09] MEDS ORDERED: GlipiZIDE 5mg tab ORAL SCH (09:00)
[2019-01-09] MEDS: Neosporin Oint 15gm TOPIC SCH ×2 (09:00→17:37)
[2019-01-09] MEDS: DEXLANSOPRAZOLE ORAL SCH ×3 (09:00→17:37)
[2019-01-09] MEDS ORDERED: Bactrim-DS 1 tab ORAL SCH (09:00)
[2019-01-09] MEDS ORDERED: Docusate 100mg cap ORAL SCH (09:00)
--- NOTE | 2019-01-09 09:08 | NUR ---
P.T Note: P.T. consult received however unable to proceed with evaluation due to c/o not feeling well as pt had an episode of unresponsiveness for approx. 5 secs while sitting at the EOB. Pt was immediately assisted back to bed with ZANA Howard assisting. Pt requested to raise HOB to semi upright position. Vitals were stable. Hold P.T at this time until after today's procedure ( EGD, Colonoscopy, CT scan ).
--- NOTE | 2019-01-09 09:15 | General Progress Note ---
Assessment/Plan Assessment/Plan: (1) Back pain (2) Abscess s/p I+D (3) AID/HIV (4) Peripheral Neuropathy Patient will be continued on Dilaudid D/w Dr. Can and he concurred. Subjective Date patient seen: Jan 09, 2019 Time patient seen: 08:15 - am Constitutional: Reports: weakness HEENT: Reports: no symptoms Cardiovascular: Reports: no symptoms Respiratory: Reports: no symptoms Gastrointestinal/Abdominal: Reports: nausea, vomiting Genitourinary: Reports: no symptoms Neurologic/Psychiatric: Reports: no symptoms Endocrine: Reports: no symptoms Hematologic/Lymphatic: Reports: no symptoms Allergies: Coded Allergies: No Known Allergies (Unverified , 01/06/19) Subjective Patient is in bed and reports that he had episodes of N/V and passing out. Had been changed from Dilaudid tabs to Dilaudid 1 mg IV Q6H PRN due to N/V, Now patients pain has been better tolerated. Rating it a 5/10 at this time. Objective Last 24 Hour Vital Signs Date Time Temp Pulse Resp B/P (MAP) Pulse Ox O2 Delivery O2 Flow Rate FiO2 01/09/19 07:00 83 14 136/82 (100) 96 01/09/19 06:00 76 16 136/78 (97) 94 01/09/19 05:00 84 15 130/76 (94) 96 01/09/19 04:00 Room Air 01/09/19 04:00 80 01/09/19 04:00 97.7 83 12 128/80 (96) 96 01/09/19 03:00 86 16 127/81 (96) 96 01/09/19 02:00 83 16 130/76 (94) 94 01/09/19 01:27 97.8 01/09/19 01:00 84 17 137/87 (104) 96 01/09/19 00:00 86 01/09/19 00:00 97.9 86 12 144/87 (106) 97 01/09/19 00:00 Room Air 01/08/19 23:00 84 12 143/86 (105) 95 01/08/19 22:00 93 15 148/87 (107) 97 01/08/19 20:00 97.8 103 18 127/82 (97) 96 01/08/19 11:46 97.3 69 18 149/86 (107) 99 Intake and Output 01/08/19 01/09/19 19:00 07:00 Intake Total 165.0 ml 110.0 ml Output Total 105 ml Balance 165.0 ml 5.0 ml IV Total 165.0 ml 110.0 ml Gastric Drainage Total 105 ml # Voids 10 # Bowel Movements 7 Laboratory Tests 01/09/19 02:50: White Blood Count [Pending], Red Blood Count 5.13, Hemoglobin 15.0, Hematocrit 44.1, Mean Corpuscular Volume 86, Mean Corpuscular Hemoglobin 29.2, Mean Corpuscular Hemoglobin Concent 33.9, Red Cell Distribution Width 13.2, Platelet Count 308, Mean Platelet Volume 6.3L, Neutrophils (%) (Auto) 77.0H, Lymphocytes (%) (Auto) 16.0L, Monocytes (%) (Auto) 5.8, Eosinophils (%) (Auto) 0.5, Basophils (%) (Auto) 0.7, Lymphocytes [Pending], Prothrombin Time 11.6H, Prothromb Time International Ratio 1.1, Activated Partial Thromboplast Time 34H , Sodium Level 142, Potassium Level 4.1, Chloride Level 105, Carbon Dioxide Level 23, Anion Gap 14, Blood Urea Nitrogen 27H, Creatinine 1.4H, Estimat Glomerular Filtration Rate 50.9, Glucose Level 80, Calcium Level 9.1, Percent CD3 Cells [Pending], Absolute CD3 Count [Pending], Percent CD4 Cells [Pending], Absolute CD4 Count [Pending], T-Lymphocyte CD4/CD8 Ratio [Pending], Percent CD8 Cells [Pending], Absolute CD8 Count [Pending] Height (Feet): 5 Height (Inches): 8.00 Weight (Pounds): 173 General Appearance: no apparent distress, alert EENT: PERRL/EOMI Neck: non-tender, normal alignment Cardiovascular: normal rate, regular rhythm Respiratory/Chest: decreased breath sounds Abdomen: other - scars noted Extremities: non-tender Edema: no edema noted Generalized Neurologic: alert, oriented x 3 Skin: warm/dry Jose F Clark Jan 09, 2019 09:15
--- NOTE | 2019-01-09 09:15 | NUR ---
NURSE NOTES: Dr. Dyer rounded to patient and consulted and cardiology, dR. Thomas and for neurology, Dr. camarena, and notified of consult at this time.
--- NOTE | 2019-01-09 09:32 | General Progress Note ---
Assessment/Plan Problem List: (1) AIDS ICD Codes: B20 - Human immunodeficiency virus [HIV] disease SNOMED: 55918614 (2) Diabetes ICD Codes: E11.9 - Type 2 diabetes mellitus without complications SNOMED: 90983488 (3) Abscess ICD Codes: L02.91 - Cutaneous abscess, unspecified SNOMED: 761941630 (4) Cellulitis ICD Codes: L03.90 - Cellulitis, unspecified SNOMED: 900854727 Qualifiers: Qualified Codes: L03.90 - Cellulitis, unspecified (5) Rectal bleed ICD Codes: K62.5 - Hemorrhage of anus and rectum SNOMED: 84609076 (6) Pneumonia ICD Codes: J18.9 - Pneumonia, unspecified organism SNOMED: 549118095 (7) Sepsis ICD Codes: A41.9 - Sepsis, unspecified organism SNOMED: 60863154 Qualifiers: Qualified Codes: A41.9 - Sepsis, unspecified organism (8) Syncope ICD Codes: R55 - Syncope and collapse SNOMED: 497109376 (9) Abdominal distension ICD Codes: R14.0 - Abdominal distension (gaseous) SNOMED: 20256042 Status: unchanged Assessment/Plan: wound care abx bs pain control pt diet cbc bmp am gi sx cardio neuro eval aru eval Subjective Constitutional: Reports: weakness Allergies: Coded Allergies: No Known Allergies (Unverified , 01/06/19) All Systems: reviewed and negative except above Subjective sleepy calm Objective Last 24 Hour Vital Signs Date Time Temp Pulse Resp B/P (MAP) Pulse Ox O2 Delivery O2 Flow Rate FiO2 01/09/19 07:00 83 14 136/82 (100) 96 01/09/19 06:00 76 16 136/78 (97) 94 01/09/19 05:00 84 15 130/76 (94) 96 01/09/19 04:00 Room Air 01/09/19 04:00 80 01/09/19 04:00 97.7 83 12 128/80 (96) 96 01/09/19 03:00 86 16 127/81 (96) 96 01/09/19 02:00 83 16 130/76 (94) 94 01/09/19 01:27 97.8 01/09/19 01:00 84 17 137/87 (104) 96 01/09/19 00:00 86 01/09/19 00:00 97.9 86 12 144/87 (106) 97 01/09/19 00:00 Room Air 01/08/19 23:00 84 12 143/86 (105) 95 01/08/19 22:00 93 15 148/87 (107) 97 01/08/19 20:00 97.8 103 18 127/82 (97) 96 01/08/19 11:46 97.3 69 18 149/86 (107) 99 Intake and Output 01/08/19 01/09/19 19:00 07:00 Intake Total 165.0 ml 110.0 ml Output Total 105 ml Balance 165.0 ml 5.0 ml IV Total 165.0 ml 110.0 ml Gastric Drainage Total 105 ml # Voids 10 # Bowel Movements 7 Laboratory Tests 01/09/19 02:50: White Blood Count [Pending], Red Blood Count 5.13, Hemoglobin 15.0, Hematocrit 44.1, Mean Corpuscular Volume 86, Mean Corpuscular Hemoglobin 29.2, Mean Corpuscular Hemoglobin Concent 33.9, Red Cell Distribution Width 13.2, Platelet Count 308, Mean Platelet Volume 6.3L, Neutrophils (%) (Auto) 77.0H, Lymphocytes (%) (Auto) 16.0L, Monocytes (%) (Auto) 5.8, Eosinophils (%) (Auto) 0.5, Basophils (%) (Auto) 0.7, Lymphocytes [Pending], Prothrombin Time 11.6H, Prothromb Time International Ratio 1.1, Activated Partial Thromboplast Time 34H , Sodium Level 142, Potassium Level 4.1, Chloride Level 105, Carbon Dioxide Level 23, Anion Gap 14, Blood Urea Nitrogen 27H, Creatinine 1.4H, Estimat Glomerular Filtration Rate 50.9, Glucose Level 80, Calcium Level 9.1, Percent CD3 Cells [Pending], Absolute CD3 Count [Pending], Percent CD4 Cells [Pending], Absolute CD4 Count [Pending], T-Lymphocyte CD4/CD8 Ratio [Pending], Percent CD8 Cells [Pending], Absolute CD8 Count [Pending] Height (Feet): 5 Height (Inches): 8.00 Weight (Pounds): 173 General Appearance: lethargic EENT: normal ENT inspection Neck: normal alignment Cardiovascular: normal peripheral pulses, normal rate, regular rhythm Respiratory/Chest: chest wall non-tender, lungs clear, normal breath sounds Abdomen: soft, decreased bowel sounds, distended Extremities: normal inspection Edema: no edema noted Arm (L), no edema noted Arm (R), no edema noted Leg (L), no edema noted Leg (R), no edema noted Pedal (L), no edema noted Pedal (R), no edema noted Generalized Neurologic: motor weakness Skin: normal pigmentation, warm/dry Dom Dyer DO Jan 09, 2019 09:32
[2019-01-09] MEDS: Docusate 100mg/10ml Liq ORAL SCH ×3 (09:47→17:28)
[2019-01-09] MEDS ORDERED: Bactrim Susp 20ml ORAL SCH (10:00)
--- NOTE | 2019-01-09 11:30 | Pre-Procedure Note/Attestation ---
Pre-Procedure Note/Attestation Complete Prior to Procedure Planned Procedure: not applicable Procedure Narrative: egd Indications for Procedure Pre-Operative Diagnosis: vomiting Attestation I attest that I discussed the nature of the procedure; its benefits; risks and complications; and alternatives (and the risks and benefits of such alternatives ), prior to the procedure, with the patient (or the patient's legal customer relations representative). I attest that, if there was a reasonable possibility of needing a blood transfusion, the patient (or the patient's legal customer relations representative) was given the [facility] standardized written summary, pursuant to the Jose Rafael Joe Blood Safety Act ([place] Health and Safety Code # 1645, as amended). I attest that I re-evaluated the patient just prior to the surgery and that there has been no change in the patient's H&P, except as documented below: Parviz Scott MD Jan 09, 2019 11:30
[2019-01-09] MEDS ORDERED: NS 500ML IVPB ONE (11:45)
[2019-01-09] MEDS ORDERED: Propofol 200mg/20ml IV ONE (12:00)
--- NOTE | 2019-01-09 12:04 | Endoscopy Procedure Note ---
Endoscopy Procedure Note General Indication for Procedure: vomiting Procedures Performed: EGD Operative Findings/Diagnosis: hiatal hrnia Specimen: yes Pt Tolerated Procedure Well: Yes Estimated Blood Loss: none Anesthesia Anesthesiologist: antonia Anesthesia: MAC Inserted Devices Implant(s) used?: No GI Core Measures 50 yrs or older w/o bx or poly: Not Applicable 10yrs. F/U recommended: Not Applicable Parviz Scott MD Jan 09, 2019 12:04
--- NOTE | 2019-01-09 12:13 | Anethesia Preoperative Eval ---
Anesthesia Pre-op PMH/ROS General Date of Evaluation: Jan 09, 2019 Time of Evaluation: 11:42 Anesthesiologist: Edmundo ASA Score: ASA 3 Mallampati Score Class I : Soft palate, uvula, fauces, pillars visible Class II: Soft palate, uvula, fauces visible Class III: Soft palate, base of uvula visible Class IV: Only hard plate visible Mallampati Classification: Class II Surgeon: Sonia Diagnosis: Abdominal pain Surgical Procedure: EGD Anesthesia History: none Family History: no anesthesia problems Allergies: Coded Allergies: No Known Allergies (Unverified , 01/06/19) Medications: see eMAR Patient NPO?: Yes Past Medical History Cardiovascular: Reports: HTN; Denies: CAD, [place], valve dz, arrhythmia, other Pulmonary: Denies: asthma, COPD, LAURA, other Gastrointestinal/Genitourinary: Reports: GERD, other - Recurrent vomiting Hiyatal hernia Hep C; Denies: CRI, ESRD Neurologic/Psychiatric: Reports: depression/anxiety; Denies: dementia, CVA, TIA, other Endocrine: Denies: DM, hypothyroidism, steroids, other HEENT: Denies: cataract (L), cataract (R), glaucoma, ATKA (L), ATKA (R), other Hematology/Immune: Reports: anemia, other - HIV AIDS; Denies: DVT, bleeding disorder Musculoskeletal/Integumentary: Denies: OA, RA, DJD, DDD, edema, other PMH Narrative: as above PSxH Narrative: See H&P Anesthesia Pre-op Phys. Exam Physician Exam Last Vital Signs Date Time Temp Pulse Resp B/P (MAP) Pulse Ox O2 Delivery O2 Flow Rate FiO2 01/09/19 11:00 101 18 171/91 (117) 97 01/09/19 08:00 98.9 01/09/19 08:00 Room Air Room Air Constitutional: NAD Neurologic: CN 2-12 intact Cardiovascular: RRR, no M/R/G Respiratory: CTA Gastrointestinal: S/NT/ND Airway Exam Mallampati Score: Class II MO: limited Neck: stiff Teeth: intact Dentures: no upper, no lower Anesthesia Pre-op A/P Labs Hematology Test 01/09/19 02:50 White Blood Count Pending Red Blood Count 5.13 M/UL (4.70-6.10) Hemoglobin 15.0 G/DL (14.2-18.0) Hematocrit 44.1 % (42.0-52.0) Mean Corpuscular Volume 86 FL (80-99) Mean Corpuscular Hemoglobin 29.2 PG (27.0-31.0) Mean Corpuscular Hemoglobin Concent 33.9 G/DL (32.0-36.0) Red Cell Distribution Width 13.2 % (11.6-14.8) Platelet Count 308 K/UL (150-450) Mean Platelet Volume 6.3 FL (6.5-10.1) L Neutrophils (%) (Auto) 77.0 % (45.0-75.0) H Lymphocytes (%) (Auto) 16.0 % (20.0-45.0) L Monocytes (%) (Auto) 5.8 % (1.0-10.0) Eosinophils (%) (Auto) 0.5 % (0.0-3.0) Basophils (%) (Auto) 0.7 % (0.0-2.0) Lymphocytes Pending Coagulation Test 01/09/19 02:50 Prothrombin Time 11.6 SEC (9.30-11.50) H Prothromb Time International Ratio 1.1 (0.9-1.1) Activated Partial Thromboplast Time 34 SEC (23-33) H Chemistry Test 01/09/19 02:50 Sodium Level 142 MMOL/L (136-145) Potassium Level 4.1 MMOL/L (3.5-5.1) Chloride Level 105 MMOL/L (98-107) Carbon Dioxide Level 23 MMOL/L (21-32) Anion Gap 14 mmol/L (5-15) Blood Urea Nitrogen 27 mg/dL (7-18) H Creatinine 1.4 MG/DL (0.55-1.30) H Estimat Glomerular Filtration Rate 50.9 mL/min (>60) Glucose Level 80 MG/DL (74-106) Calcium Level 9.1 MG/DL (8.5-10.1) Risk Assessment & Plan Assessment: ASA 3 Plan: MAC Status Change Before Surgery: Rodrigo Paige MD Jan 09, 2019 12:13
--- NOTE | 2019-01-09 12:14 | Immediate Post-Op Evaluation ---
Immediate Post-Op Evalulation Immediate Post-Op Evalulation Procedure: EGD with Bx Date of Evaluation: Jan 09, 2019 Time of Evaluation: 12:13 IV Fluids: 100 Blood Products: none Estimated Blood Loss: none Urinary Output: none Blood Pressure Systolic: 134 Blood Pressure Diastolic: 72 Pulse Rate: 86 Respiratory Rate: 20 O2 Sat by Pulse Oximetry: 98 Temperature (Fahrenheit): 97.6 Pain Score (1-10): 1 Nausea: No Vomiting: No Complications none Patient Status: awake, patent, none Hydration Status: adequate Rodrigo Wyatt MD Jan 09, 2019 12:14
--- NOTE | 2019-01-09 12:25 | NUR ---
NURSE NOTES: Patient returned from EGD, procedure tolerated well. report received from ZANA montenegro. patient is sedated after administration of propofol, patient remains able to identify self and talk with no distress or slur, he remains on 2L/min from transport, is at the bedside with patient.
--- NOTE | 2019-01-09 14:28 | Diagnostic Imaging Report ---
Indication: Abdominal pain Comparison: None Single view of the abdomen obtained Findings: Bowel gas pattern is nonspecific. Fecal retention noted in the right hemicolon. No mass, ectopic calcifications, or abnormal gas collections are identified. The bones are unremarkable. Impression: No acute findings
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
--- NOTE | 2019-01-09 14:33 | NUR ---
RADIOLOGY DEPT., ABDOMEN X-RAY DONE.-P.DYE
--- NOTE | 2019-01-09 14:47 | NUR ---
NURSE NOTES: Patient has been able to pass gas when placed on a bedpan with formed brown stool, minimal assistance noted needed to place patient on bed rivrea, will continue to monitor.
--- NOTE | 2019-01-09 15:07 | NUR ---
NURSE NOTES: Dr. Riggs updated on patient status, no verbal orders given at this time.
[2019-01-09] MEDS ORDERED: Mineral Oil 30ml ud ORAL PRN ×2 (15:15→20:00)
--- NOTE | 2019-01-09 15:55 | Surgery Progress Note ---
Surgery Progress Note Subjective Additional Comments overnight had syncopal episode x 2 in ICU stable EGD today not clear gi granados for scope yet kub with fecal exam stable comfortable with by bedside Objective Last 24 Hour Vital Signs Date Time Temp Pulse Resp B/P (MAP) Pulse Ox O2 Delivery O2 Flow Rate FiO2 01/09/19 12:22 91 01/09/19 12:20 Nasal Cannula 2.0 Room Air 01/09/19 12:15 91 13 143/80 (101) 98 01/09/19 12:14 86 20 98 01/09/19 11:00 101 18 171/91 (117) 97 01/09/19 10:00 103 18 137/78 (97) 96 01/09/19 09:00 86 17 139/78 (98) 97 01/09/19 08:00 98.9 87 18 109/86 (94) 96 01/09/19 08:00 85 01/09/19 08:00 Room Air Room Air 01/09/19 07:00 83 14 136/82 (100) 96 01/09/19 06:00 76 16 136/78 (97) 94 01/09/19 05:00 84 15 130/76 (94) 96 01/09/19 04:00 Room Air 01/09/19 04:00 80 01/09/19 04:00 97.7 83 12 128/80 (96) 96 01/09/19 03:00 86 16 127/81 (96) 96 01/09/19 02:00 83 16 130/76 (94) 94 01/09/19 01:27 97.8 01/09/19 01:00 84 17 137/87 (104) 96 01/09/19 00:00 86 01/09/19 00:00 97.9 86 12 144/87 (106) 97 01/09/19 00:00 Room Air 01/08/19 23:00 84 12 143/86 (105) 95 01/08/19 22:00 93 15 148/87 (107) 97 01/08/19 20:00 97.8 103 18 127/82 (97) 96 I&O Intake and Output 01/08/19 01/09/19 19:00 07:00 Intake Total 165.0 ml 110.0 ml Output Total 105 ml Balance 165.0 ml 5.0 ml IV Total 165.0 ml 110.0 ml Gastric Drainage Total 105 ml # Voids 10 # Bowel Movements 7 Dressing: saturated Wound: clean Cardiovascular: RSR Respiratory: clear Abdomen: soft, flat, non-tender, present bowel sounds Extremities: no edema, no tenderness, no cyanosis Laboratory Tests Test 01/09/19 02:50 White Blood Count Pending Red Blood Count 5.13 M/UL (4.70-6.10) Hemoglobin 15.0 G/DL (14.2-18.0) Hematocrit 44.1 % (42.0-52.0) Mean Corpuscular Volume 86 FL (80-99) Mean Corpuscular Hemoglobin 29.2 PG (27.0-31.0) Mean Corpuscular Hemoglobin Concent 33.9 G/DL (32.0-36.0) Red Cell Distribution Width 13.2 % (11.6-14.8) Platelet Count 308 K/UL (150-450) Mean Platelet Volume 6.3 FL (6.5-10.1) L Neutrophils (%) (Auto) 77.0 % (45.0-75.0) H Lymphocytes (%) (Auto) 16.0 % (20.0-45.0) L Monocytes (%) (Auto) 5.8 % (1.0-10.0) Eosinophils (%) (Auto) 0.5 % (0.0-3.0) Basophils (%) (Auto) 0.7 % (0.0-2.0) Lymphocytes Pending Prothrombin Time 11.6 SEC (9.30-11.50) H Prothromb Time International Ratio 1.1 (0.9-1.1) Activated Partial Thromboplast Time 34 SEC (23-33) H Sodium Level 142 MMOL/L (136-145) Potassium Level 4.1 MMOL/L (3.5-5.1) Chloride Level 105 MMOL/L (98-107) Carbon Dioxide Level 23 MMOL/L (21-32) Anion Gap 14 mmol/L (5-15) Blood Urea Nitrogen 27 mg/dL (7-18) H Creatinine 1.4 MG/DL (0.55-1.30) H Estimat Glomerular Filtration Rate 50.9 mL/min (>60) Glucose Level 80 MG/DL (74-106) Calcium Level 9.1 MG/DL (8.5-10.1) Percent CD3 Cells Pending Absolute CD3 Count Pending Percent CD4 Cells Pending Absolute CD4 Count Pending T-Lymphocyte CD4/CD8 Ratio Pending Percent CD8 Cells Pending Absolute CD8 Count Pending Plan Problems: (1) Cellulitis Assessment & Plan: 63-year-old male with left back cellulitis from a prior abscess infected cyst which was I&D. Periwound cellulitis discomfort tenderness erythema with edema. Packing and dressing changes twice daily Okay to shower Antibiotics as per infectious disease We will monitor wound for improvement Thank you for allowing me to participate in patient's care Patient overall improving. Discussed care plan and discharge planning with him. He states his will come and we can teach him wound care and he can anticipate to that at home with his . Otherwise he does not feel comfortable with home health nursing again. Has considered SNF. Pain control Okay for diet not ready for d/c given recent events kub noted bowel regimen GI for scope will follow (2) Abscess Assessment & Plan: Status post incision and drainage of left mid back abscess/ infected cyst by patient's physician in the office prior. Worsening infection cellulitis. Admitted for antibiotics. Continue as above Mike Barron Jan 09, 2019 15:55
--- NOTE | 2019-01-09 15:59 | NUR ---
NURSE NOTES: Patient tolerating clear liquid diet eating all meal, denies any symptoms of vomiting or nausea, having formed brown bowel movement and passing gas, patient wants to wait on the mineral oil administration until returns,
--- NOTE | 2019-01-09 18:30 | Procedure Note ---
DATE OF PROCEDURE: 01/09/2019 SURGEON: Parviz Scott M.D. REFERRING PHYSICIAN: Dom Dyer D.O. PROCEDURE: Upper endoscopy with biopsy. ANESTHESIA: Per Dr. Wyatt. INSTRUMENT: Olympus adult flexible upper endoscope. INDICATION: Nausea, vomiting, and abdominal pain. REASON FOR PROCEDURE: The procedure, risks, benefits, and possible consequences, including hemorrhage, aspiration, perforation and infection, and alternative treatments, were explained to the patient/legal guardian by Dr. Pavriz Scott and the patient/legal guardian understood and accepted these risks. PROCEDURE IN DETAIL: After informed consent was obtained and the patient was adequately sedated, Olympus upper endoscope was advanced from the mouth into the second portion of duodenum and retroflexion was performed in the stomach. The patient had Z-line at about 35 cm. There is a small distal esophageal ring. The patient had a 6 cm hernia sac, possibly the hiatal hernia versus paraesophageal hernia, most likely paraesophageal hernia. The scope was able to pass into the antrum and into the third portion of the duodenum. There was evidence of gastritis. Random biopsy from antrum was obtained to rule out H. pylori infection. The patient tolerated the procedure without any complication. SUMMARY OF FINDINGS: 1. Distal esophageal ring. 2. A 6 cm either hiatal hernia versus paraesophageal hernia. 3. Gastritis, status post biopsy. RECOMMENDATIONS: Follow up biopsy results and treat accordingly. I want to thank Dr. Dom Dyer for this kind referral. Parviz Scott M.D. DR: MARYANN JOB#: [id number] CC:
--- NOTE | 2019-01-09 19:28 | NUR ---
HAND-OFF: Report given to ZANA Jalloh. patient is calm and asleep with partner at the bedside.
--- NOTE | 2019-01-09 19:29 | NUR ---
NURSE NOTES: Received patient from ZANA Sofia. Will continue plan of care.
[2019-01-09] MEDS ORDERED: Nitroglycerin Subl 0.4mg tab SL PRN (19:50)
[2019-01-09] MEDS: Bactrim Susp 20ml ORAL SCH (20:27)
[2019-01-09] MEDS: HYDROmorphone 1mg/ml Carpuject IVP PRN (20:28)
[2019-01-09] MEDS: DOLUTEGRAVIR SODIUM 50 MG ORAL SCH (20:28)
[2019-01-09] MEDS ORDERED: QUEtiapine 200mg tab ORAL SCH (21:00)
[2019-01-09] MEDS: QUEtiapine 200mg tab ORAL SCH (21:00)
[2019-01-09] MEDS: Montelukast 10mg tablet ORAL SCH (21:00)
[2019-01-09] MEDS ORDERED: Montelukast 10mg tablet ORAL SCH (21:00)
[2019-01-09] MEDS ORDERED: Aspirin Baby 81mg ORAL SCH (21:00)
[2019-01-09] MEDS: Miralax 17gm pkt ORAL SCH (21:00)
[2019-01-09] MEDS ORDERED: Miralax 17gm pkt ORAL SCH (21:00)
[2019-01-09] MEDS ORDERED: QUEtiapine 200mg tab ORAL PRN (21:00)
[2019-01-09] MEDS ORDERED: DOLUTEGRAVIR SODIUM 50 MG ORAL SCH (21:00)
[2019-01-09] MEDS: Aspirin Baby 81mg ORAL SCH (21:00)
[2019-01-10] VITALS: BP 137/75
[2019-01-10] MEDS: HYDROmorphone 1mg/ml Carpuject IVP PRN ×4 (02:26→20:36)
[2019-01-10 04:00] VITALS: BP 138/72
[2019-01-10 04:31] LABS: BASOPHILS % (AUTO) 0.5 % (0.0-2.0); EOSINOPHILS % (AUTO) 0.6 % (0.0-3.0); HEMATOCRIT 41.4 % (42.0-52.0); HEMOGLOBIN 14.2 G/DL (14.2-18.0); LYMPHOCYTES % (AUTO) 11.7 % (20.0-45.0); MEAN CORPUSCULAR VOLUME 86 FL (80-99); MONOCYTES % (AUTO) 4.5 % (1.0-10.0); NEUTROPHILS % (AUTO) 82.8 % (45.0-75.0); PLATELET COUNT 320 K/UL (150-450); RED BLOOD COUNT 4.83 M/UL (4.70-6.10); RED CELL DISTRIBUTION WIDTH 12.7 % (11.6-14.8)
[2019-01-10 04:42] LABS: ANION GAP 13 mmol/L (5-15); BLOOD UREA NITROGEN 29 mg/dL (7-18); CALCIUM 8.6 MG/DL (8.5-10.1); CARBON DIOXIDE 23 MMOL/L (21-32); CHLORIDE 102 MMOL/L (98-107); CREATININE 1.4 MG/DL (0.55-1.30); POTASSIUM 3.8 MMOL/L (3.5-5.1); SODIUM 138 MMOL/L (136-145)
[2019-01-10 04:48] LABS: AMYLASE 75 U/L (25-115)
--- NOTE | 2019-01-10 07:15 | NUR ---
HAND-OFF: Report given to ZANA Greene.
--- NOTE | 2019-01-10 07:25 | NUR ---
NURSE NOTES: Report given from Yeimi RN. Pt awake ,alert and oriented x 4, able to make needs known. 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 PT on RA, denies SOB. Cellulitis on back covered with dressing dry and intact. LFA 22 G heplock noted and intact. Safety measures in place with bed locked and in lowest position, side rails x3 up and bed alarm on. Will continue to monitor and continue plan of care.
[2019-01-10 08:00] VITALS: BP 158/83
[2019-01-10] MEDS: Piperacillin/Tazobactam 3.375 GM in NS 110 ML IVPB SCH ×2 (08:00→16:33)
[2019-01-10] MEDS: DEXILANT 60 MG ORAL SCH ×3 (09:00→17:06)
[2019-01-10] MEDS: Bactrim Susp 20ml ORAL SCH ×2 (09:00→21:00)
[2019-01-10] MEDS: Docusate 100mg cap ORAL SCH ×3 (09:00→17:05)
[2019-01-10] MEDS: INTELENCE 200 MG ORAL SCH ×2 (09:00→17:06)
[2019-01-10] MEDS: DESCOVY ORAL SCH (09:00)
[2019-01-10] MEDS: JARDIANCE 10 MG ORAL SCH (09:00)
[2019-01-10] MEDS: ALPRAZolam 0.25mg tab ORAL SCH ×2 (09:00→16:39)
[2019-01-10] MEDS: Neosporin Oint 15gm TOPIC SCH ×2 (09:00→17:06)
[2019-01-10] MEDS ORDERED: Docusate 100mg cap ORAL SCH (09:00)
[2019-01-10] MEDS: GlipiZIDE 5mg tab ORAL SCH (09:00)
--- NOTE | 2019-01-10 10:04 | General Progress Note ---
Assessment/Plan Status: unchanged Assessment/Plan: (1) Back pain (2) Abscess s/p I+D (3) AID/HIV (4) Peripheral Neuropathy Patient will be continued on Dilaudid D/w Dr. Can and he concurred. Subjective Date patient seen: Jan 10, 2019 Time patient seen: 08:45 - am Allergies: Coded Allergies: No Known Allergies (Unverified , 01/06/19) Subjective Constitutional: Reports: weakness HEENT: Reports: no symptoms Cardiovascular: Reports: no symptoms Respiratory: Reports: no symptoms Gastrointestinal/Abdominal: Reports: nausea Genitourinary: Reports: no symptoms Neurologic/Psychiatric: Reports: no symptoms Endocrine: Reports: no symptoms Hematologic/Lymphatic: Reports: no symptoms Subjective Patient has been feeling better and c/o less N/V. Pain has been tolerated on the Dilaudid using 3 doses in the last 24hrs. He has no new complaints at this time. Objective Last 24 Hour Vital Signs Date Time Temp Pulse Resp B/P (MAP) Pulse Ox O2 Delivery O2 Flow Rate FiO2 01/10/19 08:00 Nasal Cannula 2.0 Room Air 01/10/19 08:00 44 01/10/19 08:00 97.7 66 20 158/83 (108) 99 01/10/19 04:00 98.0 63 24 138/72 (94) 97 01/10/19 04:00 Nasal Cannula 2.0 Room Air 01/10/19 03:48 75 01/10/19 00:00 98.2 84 20 137/75 (95) 96 01/10/19 00:00 Nasal Cannula 2.0 Room Air 01/09/19 23:59 78 01/09/19 20:00 Nasal Cannula 2.0 Room Air 01/09/19 20:00 97.5 82 20 130/76 (94) 93 01/09/19 19:20 82 01/09/19 17:00 95 15 144/75 (98) 96 01/09/19 16:00 Nasal Cannula 2.0 Room Air 01/09/19 16:00 98.5 88 18 141/75 (97) 93 01/09/19 16:00 89 01/09/19 15:00 93 18 130/68 (88) 96 01/09/19 14:00 99 18 137/79 (98) 97 01/09/19 13:00 98.9 90 17 132/78 (96) 97 01/09/19 12:22 91 01/09/19 12:20 Nasal Cannula 2.0 Room Air 01/09/19 12:15 91 13 143/80 (101) 98 01/09/19 12:14 86 20 98 01/09/19 11:00 101 18 171/91 (117) 97 Intake and Output 01/09/19 01/10/19 19:00 07:00 Intake Total 2160 ml 710.00 ml Output Total 400 ml 1200 ml Balance 1760 ml -490.00 ml Intake Oral 2160 ml 600 ml IV Total 110.00 ml Output Urine Total 400 ml 1200 ml # Voids 3 3 # Bowel Movements 6 2 Laboratory Tests 01/10/19 03:40: White Blood Count 8.0, Red Blood Count 4.83, Hemoglobin 14.2, Hematocrit 41.4L, Mean Corpuscular Volume 86, Mean Corpuscular Hemoglobin 29.4, Mean Corpuscular Hemoglobin Concent 34.3, Red Cell Distribution Width 12.7, Platelet Count 320, Mean Platelet Volume 5.9L, Neutrophils (%) (Auto) 82.8H, Lymphocytes (%) (Auto) 11.7L, Monocytes (%) (Auto) 4.5, Eosinophils (%) (Auto) 0.6, Basophils (%) (Auto ) 0.5, Sodium Level 138, Potassium Level 3.8, Chloride Level 102, Carbon Dioxide Level 23, Anion Gap 13, Blood Urea Nitrogen 29H, Creatinine 1.4H, Estimat Glomerular Filtration Rate 50.9, Glucose Level 127H, Calcium Level 8.6, Amylase Level 75, Lipase 126, Toxoplasma IgG Antibody [Pending] Height (Feet): 5 Height (Inches): 8.00 Weight (Pounds): 173 Objective General Appearance: no apparent distress, alert EENT: PERRL/EOMI Neck: non-tender, normal alignment Cardiovascular: normal rate, regular rhythm Respiratory/Chest: decreased breath sounds Abdomen: other - scars noted Extremities: non-tender Edema: no edema noted Generalized Neurologic: alert, oriented x 3 Skin: warm/dry Jose F Clark Jan 10, 2019 10:04
--- NOTE | 2019-01-10 10:39 | NUR ---
RD ASSESSMENT & RECOMMENDATIONS SEE CARE ACTIVITY FOR COMPLETE ASSESSMENT DAILY ESTIMATED NEEDS: Needs based on cardiac, abscess, DM 75kg adj 25-30 kcals/kg 4597-7692 total kcals 1.25-1.5 g protein/kg 94-113 g total protein 25-30 mL/kg 0532-5879 total fluid mLs NUTRITION DIAGNOSIS: Unintentional wt loss r/t swallowing difficulties as evidenced by pt reports decreased/ limited po intake, admits to 10# wt loss, 5% wt change, SUPPORT DBA eval pending. CURRENT DIET:CLD PO DIET RECOMMENDATIONS: CCHO MED (texture per SUPPORT DBA or as tolerated) ADDITIONAL RECOMMENDATIONS: With reduced po intake rec GLUCERNA w/ meals Rec to obtain a standing scale as pt admits to recent wt loss Monitor phos (5.0) and need for dietary restriction F/up w/ SUPPORT DBA eval BISHOP in 8oz fluid BID + Vit C 250mg daily for abscess - f/up w/ WC eval Rec Ensure Clear w/ CLD
--- NOTE | 2019-01-10 10:49 | 48 Hour Post Anesthesia Eval ---
Post Anesthesia Evaluation Procedure: EGD with Bx Date of Evaluation: Jan 10, 2019 Time of Evaluation: 10:47 Blood Pressure Systolic: 138 0: 76 Pulse Rate: 72 Respiratory Rate: 20 Temperature (Fahrenheit): 97.6 O2 Sat by Pulse Oximetry: 98 Airway: patent Nausea: No Vomiting: No Pain Intensity: 1 Hydration Status: adequate Cardiopulmonary Status: stable Mental Status/LOC: patient returned to baseline Follow-up Care/Observations: n/a Post-Anesthesia Complications: none Follow-up care needed: N/A Rodrigo Wyatt MD Jan 10, 2019 10:49
--- NOTE | 2019-01-10 11:02 | Surgery Progress Note ---
Surgery Progress Note Subjective Additional Comments nausea and emesis abdominal pain distended uncomfortable Objective Last 24 Hour Vital Signs Date Time Temp Pulse Resp B/P (MAP) Pulse Ox O2 Delivery O2 Flow Rate FiO2 01/10/19 10:49 72 20 98 01/10/19 08:00 Nasal Cannula 2.0 Room Air 01/10/19 08:00 44 01/10/19 08:00 97.7 66 20 158/83 (108) 99 01/10/19 04:00 98.0 63 24 138/72 (94) 97 01/10/19 04:00 Nasal Cannula 2.0 Room Air 01/10/19 03:48 75 01/10/19 00:00 98.2 84 20 137/75 (95) 96 01/10/19 00:00 Nasal Cannula 2.0 Room Air 01/09/19 23:59 78 01/09/19 20:00 Nasal Cannula 2.0 Room Air 01/09/19 20:00 97.5 82 20 130/76 (94) 93 01/09/19 19:20 82 01/09/19 17:00 95 15 144/75 (98) 96 01/09/19 16:00 Nasal Cannula 2.0 Room Air 01/09/19 16:00 98.5 88 18 141/75 (97) 93 01/09/19 16:00 89 01/09/19 15:00 93 18 130/68 (88) 96 01/09/19 14:00 99 18 137/79 (98) 97 01/09/19 13:00 98.9 90 17 132/78 (96) 97 01/09/19 12:22 91 01/09/19 12:20 Nasal Cannula 2.0 Room Air 01/09/19 12:15 91 13 143/80 (101) 98 01/09/19 12:14 86 20 98 I&O Intake and Output 01/09/19 01/10/19 19:00 07:00 Intake Total 2160 ml 710.00 ml Output Total 400 ml 1200 ml Balance 1760 ml -490.00 ml Intake Oral 2160 ml 600 ml IV Total 110.00 ml Output Urine Total 400 ml 1200 ml # Voids 3 3 # Bowel Movements 6 2 Cardiovascular: RSR Respiratory: clear Abdomen: soft, distended, tenderness, decreased bowel sounds Extremities: no edema, no tenderness, no cyanosis Laboratory Tests Test 01/10/19 03:40 White Blood Count 8.0 K/UL (4.8-10.8) Red Blood Count 4.83 M/UL (4.70-6.10) Hemoglobin 14.2 G/DL (14.2-18.0) Hematocrit 41.4 % (42.0-52.0) L Mean Corpuscular Volume 86 FL (80-99) Mean Corpuscular Hemoglobin 29.4 PG (27.0-31.0) Mean Corpuscular Hemoglobin Concent 34.3 G/DL (32.0-36.0) Red Cell Distribution Width 12.7 % (11.6-14.8) Platelet Count 320 K/UL (150-450) Mean Platelet Volume 5.9 FL (6.5-10.1) L Neutrophils (%) (Auto) 82.8 % (45.0-75.0) H Lymphocytes (%) (Auto) 11.7 % (20.0-45.0) L Monocytes (%) (Auto) 4.5 % (1.0-10.0) Eosinophils (%) (Auto) 0.6 % (0.0-3.0) Basophils (%) (Auto) 0.5 % (0.0-2.0) Sodium Level 138 MMOL/L (136-145) Potassium Level 3.8 MMOL/L (3.5-5.1) Chloride Level 102 MMOL/L (98-107) Carbon Dioxide Level 23 MMOL/L (21-32) Anion Gap 13 mmol/L (5-15) Blood Urea Nitrogen 29 mg/dL (7-18) H Creatinine 1.4 MG/DL (0.55-1.30) H Estimat Glomerular Filtration Rate 50.9 mL/min (>60) Glucose Level 127 MG/DL (74-106) H Calcium Level 8.6 MG/DL (8.5-10.1) Amylase Level 75 U/L (25-115) Lipase 126 U/L (73-393) Toxoplasma IgG Antibody Pending Plan Problems: (1) Cellulitis Assessment & Plan: 63-year-old male with left back cellulitis from a prior abscess infected cyst which was I&D. Periwound cellulitis discomfort tenderness erythema with edema. Packing and dressing changes twice daily Okay to shower Antibiotics as per infectious disease We will monitor wound for improvement Thank you for allowing me to participate in patient's care Patient overall improving. Discussed care plan and discharge planning with him. He states his will come and we can teach him wound care and he can anticipate to that at home with his . Otherwise he does not feel comfortable with home health nursing again. Has considered SNF. Pain control Okay for diet not ready for d/c given recent events kub noted bowel regimen GI for scope will follow (2) Abscess Assessment & Plan: Status post incision and drainage of left mid back abscess/ infected cyst by patient's physician in the office prior. Worsening infection cellulitis. Admitted for antibiotics. Continue as above (3) Abdominal distension Assessment & Plan: Stat CT A/P Mike Barron Jan 10, 2019 11:02
[2019-01-10 12:00] VITALS: BP 138/79
--- NOTE | 2019-01-10 12:00 | Diagnostic Imaging Report ---
Indication: Abdominal pain Technique: Continuous helical transaxial imaging of the abdomen and pelvis was obtained from the lung bases to the pubic symphysis. No intravenous contrast was administered. Coronal 2-D reformats were also obtained. Automatic Exposure Control was utilized. Total Dose length Product (DLP): 927.[address] Dose Index Volume (CTDIvol): 16.4 mGy Comparison: none Findings: There is a small hiatal hernia. The lung bases are clear. Aorta is mildly calcified. There is no hydronephrosis or renal stones. There is some distention of the colon due to fecal material. The appendix is seen and appears normal. There are anastomotic sutures in the area of the sigmoid colon consistent with previous partial resection. There is no abscess, free fluid or evidence of small bowel obstruction. Some breathing motion artifact noted. Urinary bladder is unremarkable. IMPRESSION: Moderate stool retention. Status post partial sigmoid resection. Apparent cholecystectomy. Breathing motion artifact. Hiatal hernia Atherosclerotic vascular disease. The CT scanner at [facility] is accredited by the [employer] and the scans are performed using dose optimization techniques as appropriate to a performed exam including Automatic Exposure control.
--- NOTE | 2019-01-10 13:36 | NUR ---
[employer] SI: SEPSIS,S/P EGD T. 98.8 HR 58 RR 20 B/P 158/83 BUN 29 CR 1.4 EGD= HIATAL HERNIA IS: ZOSYN IV BACTRIM PO METFORMIN PO STEP DOWN STATUS
--- NOTE | 2019-01-10 13:54 | GI Progress Note ---
Assessment/Plan Problems: (1) Rectal bleed ICD Codes: K62.5 - Hemorrhage of anus and rectum SNOMED: 93690790 (2) Abnormal lower esophageal sphincter relaxation ICD Codes: K22.0 - Achalasia of cardia SNOMED: 52609498, 37408812 (3) GI bleed ICD Codes: K92.2 - Gastrointestinal hemorrhage, unspecified SNOMED: 94383201 (4) GERD (gastroesophageal reflux disease) ICD Codes: K21.9 - Gastro-esophageal reflux disease without esophagitis SNOMED: 565601629 (5) Dysphagia ICD Codes: R13.10 - Dysphagia, unspecified SNOMED: 45602290, 379080324 Status: unchanged Status Narrative Discussed with Dr. Scott. Assessment/Plan s/p EGD SUMMARY OF FINDINGS: 1. Distal esophageal ring. 2. A 6 cm either hiatal hernia versus paraesophageal hernia. 3. Gastritis, status post biopsy. RECOMMENDATIONS: outpatient colonoscopy follow up biopsy results and treat accordingly. f/u surgical recommendations Hold all blood thinners 2nd Abdominal pelvis CT reviewed. There is no abscess, free fluid or evidence of small bowel obstruction. Protonix twice daily twice daily Zofran as needed We will follow with additional recommendations postprocedure The patient was seen and examined at bedside and all new and available data was reviewed in the patients chart. I agree with the above findings, impression and plan. (Patient seen earlier today. Signature stamp does not reflect patient encounter time.). - Parviz Scott MD Subjective Subjective nausea constipation Objective Last 24 Hour Vital Signs Date Time Temp Pulse Resp B/P (MAP) Pulse Ox O2 Delivery O2 Flow Rate FiO2 01/10/19 12:00 98.0 66 19 138/79 (98) 95 01/10/19 12:00 Nasal Cannula 2.0 Room Air 01/10/19 11:43 58 01/10/19 10:49 72 20 98 01/10/19 08:00 Nasal Cannula 2.0 Room Air 01/10/19 08:00 44 01/10/19 08:00 97.7 66 20 158/83 (108) 99 01/10/19 04:00 98.0 63 24 138/72 (94) 97 01/10/19 04:00 Nasal Cannula 2.0 Room Air 01/10/19 03:48 75 01/10/19 00:00 98.2 84 20 137/75 (95) 96 01/10/19 00:00 Nasal Cannula 2.0 Room Air 01/09/19 23:59 78 01/09/19 20:00 Nasal Cannula 2.0 Room Air 01/09/19 20:00 97.5 82 20 130/76 (94) 93 01/09/19 19:20 82 01/09/19 17:00 95 15 144/75 (98) 96 01/09/19 16:00 Nasal Cannula 2.0 Room Air 01/09/19 16:00 98.5 88 18 141/75 (97) 93 01/09/19 16:00 89 01/09/19 15:00 93 18 130/68 (88) 96 01/09/19 14:00 99 18 137/79 (98) 97 Intake and Output 01/09/19 01/10/19 19:00 07:00 Intake Total 2160 ml 710.00 ml Output Total 400 ml 1200 ml Balance 1760 ml -490.00 ml Intake Oral 2160 ml 600 ml IV Total 110.00 ml Output Urine Total 400 ml 1200 ml # Voids 3 3 # Bowel Movements 6 2 Laboratory Tests Test 01/10/19 03:40 White Blood Count 8.0 K/UL (4.8-10.8) Red Blood Count 4.83 M/UL (4.70-6.10) Hemoglobin 14.2 G/DL (14.2-18.0) Hematocrit 41.4 % (42.0-52.0) L Mean Corpuscular Volume 86 FL (80-99) Mean Corpuscular Hemoglobin 29.4 PG (27.0-31.0) Mean Corpuscular Hemoglobin Concent 34.3 G/DL (32.0-36.0) Red Cell Distribution Width 12.7 % (11.6-14.8) Platelet Count 320 K/UL (150-450) Mean Platelet Volume 5.9 FL (6.5-10.1) L Neutrophils (%) (Auto) 82.8 % (45.0-75.0) H Lymphocytes (%) (Auto) 11.7 % (20.0-45.0) L Monocytes (%) (Auto) 4.5 % (1.0-10.0) Eosinophils (%) (Auto) 0.6 % (0.0-3.0) Basophils (%) (Auto) 0.5 % (0.0-2.0) Sodium Level 138 MMOL/L (136-145) Potassium Level 3.8 MMOL/L (3.5-5.1) Chloride Level 102 MMOL/L (98-107) Carbon Dioxide Level 23 MMOL/L (21-32) Anion Gap 13 mmol/L (5-15) Blood Urea Nitrogen 29 mg/dL (7-18) H Creatinine 1.4 MG/DL (0.55-1.30) H Estimat Glomerular Filtration Rate 50.9 mL/min (>60) Glucose Level 127 MG/DL (74-106) H Calcium Level 8.6 MG/DL (8.5-10.1) Amylase Level 75 U/L (25-115) Lipase 126 U/L (73-393) Toxoplasma IgG Antibody Pending Height (Feet): 5 Height (Inches): 8.00 Weight (Pounds): 173 General Appearance: WD/WN, no apparent distress, alert Cardiovascular: normal rate Respiratory/Chest: normal breath sounds, no respiratory distress Abdominal Exam: normal bowel sounds, non tender, soft Extremities: normal range of motion, non-tender Theodore Stewart NP Jan 10, 2019 13:54
--- NOTE | 2019-01-10 14:27 | General Progress Note ---
Assessment/Plan Problem List: (1) AIDS ICD Codes: B20 - Human immunodeficiency virus [HIV] disease SNOMED: 81557693 (2) Diabetes ICD Codes: E11.9 - Type 2 diabetes mellitus without complications SNOMED: 03408574 (3) Abscess ICD Codes: L02.91 - Cutaneous abscess, unspecified SNOMED: 954790249 (4) Cellulitis ICD Codes: L03.90 - Cellulitis, unspecified SNOMED: 103623813 Qualifiers: Qualified Codes: L03.90 - Cellulitis, unspecified (5) Rectal bleed ICD Codes: K62.5 - Hemorrhage of anus and rectum SNOMED: 76631226 (6) Pneumonia ICD Codes: J18.9 - Pneumonia, unspecified organism SNOMED: 250907378 (7) Sepsis ICD Codes: A41.9 - Sepsis, unspecified organism SNOMED: 75859539 Qualifiers: Qualified Codes: A41.9 - Sepsis, unspecified organism (8) Syncope ICD Codes: R55 - Syncope and collapse SNOMED: 163387563 (9) Abdominal distension ICD Codes: R14.0 - Abdominal distension (gaseous) SNOMED: 25647119 Status: stable, progressing Assessment/Plan: wound care abx bs pain control pt diet cbc bmp am gi sx cardio neuro eval aru eval vs dc plan snf Subjective Constitutional: Reports: weakness Allergies: Coded Allergies: No Known Allergies (Unverified , 01/06/19) All Systems: reviewed and negative except above Subjective sleepy calm Objective Last 24 Hour Vital Signs Date Time Temp Pulse Resp B/P (MAP) Pulse Ox O2 Delivery O2 Flow Rate FiO2 01/10/19 12:00 98.0 66 19 138/79 (98) 95 01/10/19 12:00 Nasal Cannula 2.0 Room Air 01/10/19 11:43 58 01/10/19 10:49 72 20 98 01/10/19 08:00 Nasal Cannula 2.0 Room Air 01/10/19 08:00 44 01/10/19 08:00 97.7 66 20 158/83 (108) 99 01/10/19 04:00 98.0 63 24 138/72 (94) 97 01/10/19 04:00 Nasal Cannula 2.0 Room Air 01/10/19 03:48 75 01/10/19 00:00 98.2 84 20 137/75 (95) 96 01/10/19 00:00 Nasal Cannula 2.0 Room Air 01/09/19 23:59 78 01/09/19 20:00 Nasal Cannula 2.0 Room Air 01/09/19 20:00 97.5 82 20 130/76 (94) 93 01/09/19 19:20 82 01/09/19 17:00 95 15 144/75 (98) 96 01/09/19 16:00 Nasal Cannula 2.0 Room Air 01/09/19 16:00 98.5 88 18 141/75 (97) 93 01/09/19 16:00 89 01/09/19 15:00 93 18 130/68 (88) 96 Intake and Output 01/09/19 01/10/19 19:00 07:00 Intake Total 2160 ml 710.00 ml Output Total 400 ml 1200 ml Balance 1760 ml -490.00 ml Intake Oral 2160 ml 600 ml IV Total 110.00 ml Output Urine Total 400 ml 1200 ml # Voids 3 3 # Bowel Movements 6 2 Laboratory Tests 01/10/19 03:40: White Blood Count 8.0, Red Blood Count 4.83, Hemoglobin 14.2, Hematocrit 41.4L, Mean Corpuscular Volume 86, Mean Corpuscular Hemoglobin 29.4, Mean Corpuscular Hemoglobin Concent 34.3, Red Cell Distribution Width 12.7, Platelet Count 320, Mean Platelet Volume 5.9L, Neutrophils (%) (Auto) 82.8H, Lymphocytes (%) (Auto) 11.7L, Monocytes (%) (Auto) 4.5, Eosinophils (%) (Auto) 0.6, Basophils (%) (Auto ) 0.5, Sodium Level 138, Potassium Level 3.8, Chloride Level 102, Carbon Dioxide Level 23, Anion Gap 13, Blood Urea Nitrogen 29H, Creatinine 1.4H, Estimat Glomerular Filtration Rate 50.9, Glucose Level 127H, Calcium Level 8.6, Amylase Level 75, Lipase 126, Toxoplasma IgG Antibody [Pending] Height (Feet): 5 Height (Inches): 8.00 Weight (Pounds): 173 General Appearance: lethargic EENT: normal ENT inspection Neck: normal alignment Cardiovascular: normal peripheral pulses, normal rate, regular rhythm Respiratory/Chest: chest wall non-tender, lungs clear, normal breath sounds Abdomen: normal bowel sounds, non tender, soft Extremities: normal inspection Edema: no edema noted Arm (L), no edema noted Arm (R), no edema noted Leg (L), no edema noted Leg (R), no edema noted Pedal (L), no edema noted Pedal (R), no edema noted Generalized Neurologic: responsive, motor weakness Skin: normal pigmentation, warm/dry Dom Dyer DO Jan 10, 2019 14:27
--- NOTE | 2019-01-10 14:30 | NUR ---
NURSE NOTES: Johanna wound nurse changed dressing and taught how to do it at home. to do dressing tomorrow. Will continue to monitor.
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
--- NOTE | 2019-01-10 15:38 | NUR ---
HOME APPRAISER NOTES PT ACCEPTED TO [facility] [place].
[2019-01-10 16:00] VITALS: BP 150/77
--- NOTE | 2019-01-10 18:51 | Cardiology Progress Note ---
Assessment/Plan Assessment/Plan The patient is seen and examined, full consult note will be dictated shortly. Objective Last 24 Hour Vital Signs Date Time Temp Pulse Resp B/P (MAP) Pulse Ox O2 Delivery O2 Flow Rate FiO2 01/10/19 16:00 60 01/10/19 16:00 97.5 67 20 150/77 (101) 97 01/10/19 16:00 Nasal Cannula 2.0 Room Air 01/10/19 12:00 98.0 66 19 138/79 (98) 95 01/10/19 12:00 Nasal Cannula 2.0 Room Air 01/10/19 11:43 58 01/10/19 10:49 72 20 98 01/10/19 08:00 Nasal Cannula 2.0 Room Air 01/10/19 08:00 44 01/10/19 08:00 97.7 66 20 158/83 (108) 99 01/10/19 04:00 98.0 63 24 138/72 (94) 97 01/10/19 04:00 Nasal Cannula 2.0 Room Air 01/10/19 03:48 75 01/10/19 00:00 98.2 84 20 137/75 (95) 96 01/10/19 00:00 Nasal Cannula 2.0 Room Air 01/09/19 23:59 78 01/09/19 20:00 Nasal Cannula 2.0 Room Air 01/09/19 20:00 97.5 82 20 130/76 (94) 93 01/09/19 19:20 82 Intake and Output 01/09/19 01/10/19 19:00 07:00 Intake Total 2160 ml 710.00 ml Output Total 400 ml 1200 ml Balance 1760 ml -490.00 ml Intake Oral 2160 ml 600 ml IV Total 110.00 ml Output Urine Total 400 ml 1200 ml # Voids 3 3 # Bowel Movements 6 2 Laboratory Tests Test 01/10/19 03:40 White Blood Count 8.0 K/UL (4.8-10.8) Red Blood Count 4.83 M/UL (4.70-6.10) Hemoglobin 14.2 G/DL (14.2-18.0) Hematocrit 41.4 % (42.0-52.0) L Mean Corpuscular Volume 86 FL (80-99) Mean Corpuscular Hemoglobin 29.4 PG (27.0-31.0) Mean Corpuscular Hemoglobin Concent 34.3 G/DL (32.0-36.0) Red Cell Distribution Width 12.7 % (11.6-14.8) Platelet Count 320 K/UL (150-450) Mean Platelet Volume 5.9 FL (6.5-10.1) L Neutrophils (%) (Auto) 82.8 % (45.0-75.0) H Lymphocytes (%) (Auto) 11.7 % (20.0-45.0) L Monocytes (%) (Auto) 4.5 % (1.0-10.0) Eosinophils (%) (Auto) 0.6 % (0.0-3.0) Basophils (%) (Auto) 0.5 % (0.0-2.0) Sodium Level 138 MMOL/L (136-145) Potassium Level 3.8 MMOL/L (3.5-5.1) Chloride Level 102 MMOL/L (98-107) Carbon Dioxide Level 23 MMOL/L (21-32) Anion Gap 13 mmol/L (5-15) Blood Urea Nitrogen 29 mg/dL (7-18) H Creatinine 1.4 MG/DL (0.55-1.30) H Estimat Glomerular Filtration Rate 50.9 mL/min (>60) Glucose Level 127 MG/DL (74-106) H Calcium Level 8.6 MG/DL (8.5-10.1) Amylase Level 75 U/L (25-115) Lipase 126 U/L (73-393) Toxoplasma IgG Antibody Pending Fish Thomas MD Jan 10, 2019 18:51
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
--- NOTE | 2019-01-10 19:27 | NUR ---
HAND-OFF: Report given to Michelle SPANN.
--- NOTE | 2019-01-10 19:30 | Progress Note ---
DATE: 01/10/2019 SUBJECTIVE: This is a 63-year-old male patient who is in the hospital. He is very confused and disorganized male patient. Mood labile. . He is a 63-year-old male with skin rash with an abscess, anxiety, mood lability, and depression. That is why, his attending has requested daily psychiatric consultation. . MENTAL STATUS EXAMINATION: This is a 63-year-old male. Appearance is disheveled. Attitude, irritable and agitated. Affect, guarded and restricted. Intellect poor. Mood, depressed and anxious. Motor activity, psychomotor agitation. Attention span is poor. Orientation x2. Speech is pressured. Thought process, disorganized and illogical. Insight and judgment is poor. DIAGNOSIS: Bipolar 2. PLAN: Xanax 0.25 mg three times a day and Seroquel 400 mg at bedtime. A 20 minutes of cognitive behavioral therapy provided to help convert his negative thoughts to more positive thoughts to reduce depression, anxiety, mood lability. Chart reviewed. Discussed with staff. Seen and assessed at bedside. Yumiko Louis M.D. DR: MIGUE JOB#: [id number] CC:
--- NOTE | 2019-01-10 19:41 | NUR ---
NURSE NOTES: Report received from ZANA Greene. Pt awake ,alert and oriented x 4, able to make needs known. Pt SR on dye weigher. PT on RA, denies SOB. Cellulitis on back covered with dressing dry and intact. LFA 22 G heplock noted and intact. Patient denies pain at this time. , Abdoul, is present at bedside. Safety measures in place with bed locked and in lowest position, side rails up x3 and padded per protocol and bed alarm on. Will continue to monitor and continue plan of care.
--- NOTE | 2019-01-10 19:47 | NUR ---
NURSE NOTES: Patient stated that administered Dolutegravir as he normally takes it in the evening. Patient states that they have an agreement with pharmacy since medication is not on file at facility. Discussed with patient medication scheduled for 2100 and must be dispensed by pharmacy, confirmed and stored appropriately. Patient's took the rest of the medications home with him. Ensured no other medications remained in room. No adverse effects noted. BP 147/72 HR 72. Informed dispatcher street department of occurrence. Will continue to monitor. Will endorse to AM staff.
[2019-01-10 20:00] VITALS: BP 154/72
--- NOTE | 2019-01-10 20:36 | NUR ---
NURSE NOTES: Patient c/o pain, rates pain as an 8-9/10 and request pain medication. BP 154/78 HR 74 RR 24 O2 sat 99% Administered Dilaudid 1mg as ordered. Will continue to monitor.
--- NOTE | 2019-01-10 20:59 | NUR ---
NURSE NOTES: Administered Zofran as requested per patient for Nausea. No adverse effects noted from administration of Dilaudid. Will continue to monitor.
[2019-01-10] MEDS: Aspirin Baby 81mg ORAL SCH (21:00)
[2019-01-10] MEDS: Miralax 17gm pkt ORAL SCH (21:00)
[2019-01-10] MEDS: QUEtiapine 200mg tab ORAL SCH (21:00)
[2019-01-10] MEDS: Montelukast 10mg tablet ORAL SCH (21:00)
--- NOTE | 2019-01-10 21:00 | NUR ---
NURSE NOTES: Wound care performed per order. No drainage noted from wound. Packed at bedside and Optifoam applied. Patient tolerated care well. Patient remains resting in bed. Bed is in lowest position, safety wheels engaged, call light within reach and side rails up x2 and padded per protocol. Patient can ambulate but encouraged to use call light. Will continue to monitor.
[2019-01-10] MEDS: DOLUTEGRAVIR SODIUM 50 MG ORAL SCH (21:22)
--- NOTE | 2019-01-10 21:30 | NUR ---
NURSE NOTES: Patient declined administration of oral medications. Patient educated. Will continue to monitor.
--- NOTE | 2019-01-10 22:38 | NUR ---
NURSE NOTES: Patient assisted to bedside commode. Patient assisted back to bed. While ambulating 3 feet back to bed pt c/o feeling lightheaded and dizzy. Pt assisted in to sitting position in bed. No further incidents noted. Will continue to monitor.
--- NOTE | 2019-01-10 23:08 | NUR ---
NURSE NOTES: Pt c/o nausea and vomited x 1, yellow in color and thin in consistency. Pt assisted in to a sitting position to prevent aspiration. Assisted patient with oral care. Pt resting in bed; bed in lowest position, safety wheels engaged, side rails up x3 and padded per protocol, call light within easy reach. Will continue to monitor.
[2019-01-11] VITALS: BP 138/77
[2019-01-11] MEDS: Piperacillin/Tazobactam 3.375 GM in NS 110 ML IVPB SCH ×4 (00:31→23:50)
[2019-01-11] MEDS: HYDROmorphone 1mg/ml Carpuject IVP PRN ×4 (02:43→22:01)
[2019-01-11 04:00] VITALS: BP 142/78
[2019-01-11 04:43] LABS: HEMATOCRIT 42.6 % (42.0-52.0); HEMOGLOBIN 14.8 G/DL (14.2-18.0); MEAN CORPUSCULAR VOLUME 85 FL (80-99); PLATELET COUNT 315 K/UL (150-450); RED BLOOD COUNT 5.02 M/UL (4.70-6.10); RED CELL DISTRIBUTION WIDTH 12.9 % (11.6-14.8); WHITE BLOOD COUNT 7.8 K/UL (4.8-10.8)
[2019-01-11 04:47] LABS: ANION GAP 12 mmol/L (5-15); BLOOD UREA NITROGEN 26 mg/dL (7-18); CALCIUM 8.7 MG/DL (8.5-10.1); CARBON DIOXIDE 24 MMOL/L (21-32); CHLORIDE 101 MMOL/L (98-107); CREATININE 1.1 MG/DL (0.55-1.30); POTASSIUM 3.5 MMOL/L (3.5-5.1); SODIUM 136 MMOL/L (136-145)
--- NOTE | 2019-01-11 06:04 | NUR ---
NURSE NOTES: Called Dr Dyer left message with Viktoria from answering service to saeid GOMEZ. Pt not able to take PO medication. Nausea/Vomiting noted throughout shift. Pt declined oral meds. Pt request IV medications; protonix in particular. Will wait for call back. Will continue to monitor.
--- NOTE | 2019-01-11 07:21 | NUR ---
HAND-OFF: Report given to ZANA Owens. No signs of respiratory or cardiac distress noted at this time. Endorsed phone call out to Dr Dyer to change medications to IV, nausea and vomiting noted during shift and wound care.
--- NOTE | 2019-01-11 07:22 | NUR ---
NURSE NOTES: Received patient in bed. Awake, alert, in no apparent distress. Call light within reach. Bed in lowest position. On room air. Will continue plan of care.
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
[2019-01-11 08:00] VITALS: BP 131/71
--- NOTE | 2019-01-11 08:00 | NUR ---
NURSE NOTES: Assisted patient to commode. And patient is using his cane. Patient's at bedside.
[2019-01-11] MEDS: Docusate 100mg cap ORAL SCH ×3 (09:00→18:00)
[2019-01-11] MEDS: INTELENCE 200 MG ORAL SCH ×2 (09:00→18:00)
[2019-01-11] MEDS: DEXILANT 60 MG ORAL SCH ×3 (09:00→18:00)
[2019-01-11] MEDS: Bactrim Susp 20ml ORAL SCH ×2 (09:00→21:00)
[2019-01-11] MEDS: GlipiZIDE 5mg tab ORAL SCH (09:00)
[2019-01-11] MEDS: metFORMIN 500mg tab ORAL SCH (09:00)
[2019-01-11] MEDS: JARDIANCE 10 MG ORAL SCH (09:00)
[2019-01-11] MEDS: DESCOVY ORAL SCH (09:00)
[2019-01-11] MEDS ORDERED: metFORMIN 500mg tab ORAL SCH ×2 (09:00)
[2019-01-11] MEDS: ALPRAZolam 0.25mg tab ORAL SCH ×4 (09:00→23:55)
--- NOTE | 2019-01-11 09:00 | NUR ---
NURSE NOTES: Dr. Dyer at bedside. Discussing care with patient and patient's .
--- NOTE | 2019-01-11 09:20 | NUR ---
NURSE NOTES: Physical Therapist at bedside.
--- NOTE | 2019-01-11 09:29 | General Progress Note ---
Assessment/Plan Problem List: (1) AIDS ICD Codes: B20 - Human immunodeficiency virus [HIV] disease SNOMED: 54522593 (2) Diabetes ICD Codes: E11.9 - Type 2 diabetes mellitus without complications SNOMED: 07537742 (3) Abscess ICD Codes: L02.91 - Cutaneous abscess, unspecified SNOMED: 612452531 (4) Cellulitis ICD Codes: L03.90 - Cellulitis, unspecified SNOMED: 799129217 Qualifiers: Qualified Codes: L03.90 - Cellulitis, unspecified (5) Rectal bleed ICD Codes: K62.5 - Hemorrhage of anus and rectum SNOMED: 76180511 (6) Pneumonia ICD Codes: J18.9 - Pneumonia, unspecified organism SNOMED: 680620343 (7) Sepsis ICD Codes: A41.9 - Sepsis, unspecified organism SNOMED: 07982740 Qualifiers: Qualified Codes: A41.9 - Sepsis, unspecified organism (8) Syncope ICD Codes: R55 - Syncope and collapse SNOMED: 392166199 (9) Abdominal distension ICD Codes: R14.0 - Abdominal distension (gaseous) SNOMED: 94176861 Status: stable, progressing Assessment/Plan: wound care abx bs pain control pt diet cbc bmp am gi sx f/u dc plan w hh Subjective Constitutional: Reports: weakness Allergies: Coded Allergies: No Known Allergies (Unverified , 01/06/19) All Systems: reviewed and negative except above Subjective sleepy calm constipated Objective Last 24 Hour Vital Signs Date Time Temp Pulse Resp B/P (MAP) Pulse Ox O2 Delivery O2 Flow Rate FiO2 01/11/19 08:00 97.7 61 22 131/71 (91) 99 01/11/19 04:00 97.5 65 22 142/78 (99) 99 01/11/19 04:00 Room Air Room Air 01/11/19 03:58 47 01/11/19 00:00 98.5 75 20 138/77 (97) 97 01/11/19 00:00 Room Air Room Air 01/10/19 23:58 50 01/10/19 20:00 Room Air Room Air 01/10/19 20:00 97.6 76 20 154/72 (99) 99 01/10/19 19:55 75 01/10/19 16:00 60 01/10/19 16:00 97.5 67 20 150/77 (101) 97 01/10/19 16:00 Nasal Cannula 2.0 Room Air 01/10/19 12:00 98.0 66 19 138/79 (98) 95 01/10/19 12:00 Nasal Cannula 2.0 Room Air 01/10/19 11:43 58 01/10/19 10:49 72 20 98 Intake and Output 01/10/19 01/11/19 18:59 06:59 Intake Total 550.5 ml 229.5 ml Output Total 1200 ml Balance -649.5 ml 229.5 ml Intake Oral 400 ml 50 ml IV Total 150.5 ml 179.5 ml Output Urine Total 1200 ml # Voids 3 2 Laboratory Tests 01/11/19 03:36: White Blood Count 7.8, Red Blood Count 5.02, Hemoglobin 14.8, Hematocrit 42.6, Mean Corpuscular Volume 85, Mean Corpuscular Hemoglobin 29.4, Mean Corpuscular Hemoglobin Concent 34.6, Red Cell Distribution Width 12.9, Platelet Count 315, Mean Platelet Volume 6.2L, Neutrophils (%) (Auto) , Lymphocytes (%) (Auto) , Monocytes (%) (Auto) , Eosinophils (%) (Auto) , Basophils (%) (Auto) , Differential Total Cells Counted 100, Neutrophils % (Manual) 85H, Lymphocytes % (Manual) 10L, Monocytes % (Manual) 4, Eosinophils % (Manual) 1, Basophils % ( Manual) 0, Band Neutrophils 0, Platelet Estimate Adequate, Platelet Morphology Normal, Sodium Level 136, Potassium Level 3.5, Chloride Level 101, Carbon Dioxide Level 24, Anion Gap 12, Blood Urea Nitrogen 26H, Creatinine 1.1, Estimat Glomerular Filtration Rate > 60, Glucose Level 185H, Calcium Level 8.7 Height (Feet): 5 Height (Inches): 8.00 Weight (Pounds): 173 General Appearance: lethargic EENT: normal ENT inspection Neck: normal alignment Cardiovascular: normal peripheral pulses, normal rate, regular rhythm Respiratory/Chest: chest wall non-tender, lungs clear, normal breath sounds Abdomen: normal bowel sounds, non tender, soft Extremities: normal inspection Edema: no edema noted Arm (L), no edema noted Arm (R), no edema noted Leg (L), no edema noted Leg (R), no edema noted Pedal (L), no edema noted Pedal (R), no edema noted Generalized Neurologic: responsive, motor weakness Skin: normal pigmentation, warm/dry Dom Dyer DO Jan 11, 2019 09:29
--- NOTE | 2019-01-11 09:36 | General Progress Note ---
Assessment/Plan Assessment/Plan: (1) Back pain (2) Abscess s/p I+D (3) AID/HIV (4) Peripheral Neuropathy Patient will be continued on Dilaudid D/w Dr. Can and he concurred. Subjective Date patient seen: Jan 11, 2019 Time patient seen: 09:00 - am Allergies: Coded Allergies: No Known Allergies (Unverified , 01/06/19) Subjective Constitutional: Reports: weakness HEENT: Reports: no symptoms Cardiovascular: Reports: no symptoms Respiratory: Reports: no symptoms Gastrointestinal/Abdominal: Reports: nausea Genitourinary: Reports: no symptoms Neurologic/Psychiatric: Reports: no symptoms Endocrine: Reports: no symptoms Hematologic/Lymphatic: Reports: no symptoms Subjective Patient is in bed reports pain at a moderate level. Has used 4 doses of Dilaudid in the last 24hrs. He no new complaints at this time. Objective Last 24 Hour Vital Signs Date Time Temp Pulse Resp B/P (MAP) Pulse Ox O2 Delivery O2 Flow Rate FiO2 01/11/19 08:00 97.7 61 22 131/71 (91) 99 01/11/19 04:00 97.5 65 22 142/78 (99) 99 01/11/19 04:00 Room Air Room Air 01/11/19 03:58 47 01/11/19 00:00 98.5 75 20 138/77 (97) 97 01/11/19 00:00 Room Air Room Air 01/10/19 23:58 50 01/10/19 20:00 Room Air Room Air 01/10/19 20:00 97.6 76 20 154/72 (99) 99 01/10/19 19:55 75 01/10/19 16:00 60 01/10/19 16:00 97.5 67 20 150/77 (101) 97 01/10/19 16:00 Nasal Cannula 2.0 Room Air 01/10/19 12:00 98.0 66 19 138/79 (98) 95 01/10/19 12:00 Nasal Cannula 2.0 Room Air 01/10/19 11:43 58 01/10/19 10:49 72 20 98 Intake and Output 01/10/19 01/11/19 18:59 06:59 Intake Total 550.5 ml 229.5 ml Output Total 1200 ml Balance -649.5 ml 229.5 ml Intake Oral 400 ml 50 ml IV Total 150.5 ml 179.5 ml Output Urine Total 1200 ml # Voids 3 2 Laboratory Tests 01/11/19 03:36: White Blood Count 7.8, Red Blood Count 5.02, Hemoglobin 14.8, Hematocrit 42.6, Mean Corpuscular Volume 85, Mean Corpuscular Hemoglobin 29.4, Mean Corpuscular Hemoglobin Concent 34.6, Red Cell Distribution Width 12.9, Platelet Count 315, Mean Platelet Volume 6.2L, Neutrophils (%) (Auto) , Lymphocytes (%) (Auto) , Monocytes (%) (Auto) , Eosinophils (%) (Auto) , Basophils (%) (Auto) , Differential Total Cells Counted 100, Neutrophils % (Manual) 85H, Lymphocytes % (Manual) 10L, Monocytes % (Manual) 4, Eosinophils % (Manual) 1, Basophils % ( Manual) 0, Band Neutrophils 0, Platelet Estimate Adequate, Platelet Morphology Normal, Sodium Level 136, Potassium Level 3.5, Chloride Level 101, Carbon Dioxide Level 24, Anion Gap 12, Blood Urea Nitrogen 26H, Creatinine 1.1, Estimat Glomerular Filtration Rate > 60, Glucose Level 185H, Calcium Level 8.7 Height (Feet): 5 Height (Inches): 8.00 Weight (Pounds): 173 Objective General Appearance: no apparent distress, alert EENT: PERRL/EOMI Neck: non-tender, normal alignment Cardiovascular: normal rate, regular rhythm Respiratory/Chest: decreased breath sounds Abdomen: other - scars noted Extremities: non-tender Edema: no edema noted Generalized Neurologic: alert, oriented x 3 Skin: warm/dry Jose F Clark Jan 11, 2019 09:36
[2019-01-11] MEDS: Neosporin Oint 15gm TOPIC SCH ×3 (09:56→21:13)
--- NOTE | 2019-01-11 10:00 | NUR ---
NURSE NOTES: Spoke to Dr. Nevarez via telephone. Informed him that Dr. Dyer ordered to have him for neuro consult. Dr. Nevarez said that he will come to see the patient later.
--- NOTE | 2019-01-11 10:08 | NUR ---
P.T NOTE: P.T EVALUATION ATTEMPTED HOWEVER PATIENT NOT ABLE TO PARTICIPATE DUE TO C/O ABDOMINAL DISCOMFORT AND NAUSEA. PATIENT ALSO REPORTS CONCERN OF HE MIGHT GET LIGHTHEADED AGAIN AND PASS OUT LIKE WHAT HAPPEN LAST NIGHT AND THE DAY BEFORE. WILL DEFER P.T EVALUATION AND REATTEMPT TOMORROW ABDOMINAL ISSUE/CONDITION IMPROVES. RN NOTIFIED/AWARE.
[2019-01-11 12:00] VITALS: BP 152/88
[2019-01-11] MEDS ORDERED: Fleet's Enema 133ml RECTAL SCH ×3 (12:30→21:00)
--- NOTE | 2019-01-11 12:40 | NUR ---
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 97.5 HR 47 RR 22 B/P 142/78 RA 98% IS: FLEETS ENEMA ZOSYN IV BACTRIM PO METFORMIN PO STEP DOWN STATUS
--- NOTE | 2019-01-11 13:05 | General Progress Note ---
Assessment/Plan Assessment/Plan: Assessment/Plan Problems: (1) Rectal bleed ICD Codes: K62.5 - Hemorrhage of anus and rectum SNOMED: 59189009 (2) Abnormal lower esophageal sphincter relaxation ICD Codes: K22.0 - Achalasia of cardia SNOMED: 44472583, 45694172 (3) GI bleed ICD Codes: K92.2 - Gastrointestinal hemorrhage, unspecified SNOMED: 34460261 (4) GERD (gastroesophageal reflux disease) ICD Codes: K21.9 - Gastro-esophageal reflux disease without esophagitis SNOMED: 825381431 (5) Dysphagia ICD Codes: R13.10 - Dysphagia, unspecified SNOMED: 10240083, 387121554 Assessment/Plan s/p EGD SUMMARY OF FINDINGS: 1. Distal esophageal ring. 2. A 6 cm either hiatal hernia versus paraesophageal hernia. 3. Gastritis, status post biopsy. RECOMMENDATIONS: outpatient colonoscopy follow up biopsy results and treat accordingly. f/u surgical recommendations Hold all blood thinners 2nd Abdominal pelvis CT reviewed. There is no abscess, free fluid or evidence of small bowel obstruction. Protonix twice daily twice daily Zofran as needed We will follow with additional recommendations postprocedure Subjective ROS Limited/Unobtainable: Yes Allergies: Coded Allergies: No Known Allergies (Unverified , 01/06/19) Objective Last 24 Hour Vital Signs Date Time Temp Pulse Resp B/P (MAP) Pulse Ox O2 Delivery O2 Flow Rate FiO2 01/11/19 12:00 Room Air Room Air 01/11/19 08:00 Room Air Room Air 01/11/19 08:00 97.7 61 22 131/71 (91) 99 01/11/19 07:29 65 01/11/19 04:00 97.5 65 22 142/78 (99) 99 01/11/19 04:00 Room Air Room Air 01/11/19 03:58 47 01/11/19 00:00 98.5 75 20 138/77 (97) 97 01/11/19 00:00 Room Air Room Air 01/10/19 23:58 50 01/10/19 20:00 Room Air Room Air 01/10/19 20:00 97.6 76 20 154/72 (99) 99 01/10/19 19:55 75 01/10/19 16:00 60 01/10/19 16:00 97.5 67 20 150/77 (101) 97 01/10/19 16:00 Nasal Cannula 2.0 Room Air Intake and Output 01/10/19 01/11/19 19:00 07:00 Intake Total 578.0 ml 202.0 ml Output Total 1200 ml Balance -622.0 ml 202.0 ml Intake Oral 400 ml 50 ml IV Total 178.0 ml 152.0 ml Output Urine Total 1200 ml # Voids 3 2 Laboratory Tests 01/11/19 03:36: White Blood Count 7.8, Red Blood Count 5.02, Hemoglobin 14.8, Hematocrit 42.6, Mean Corpuscular Volume 85, Mean Corpuscular Hemoglobin 29.4, Mean Corpuscular Hemoglobin Concent 34.6, Red Cell Distribution Width 12.9, Platelet Count 315, Mean Platelet Volume 6.2L, Neutrophils (%) (Auto) , Lymphocytes (%) (Auto) , Monocytes (%) (Auto) , Eosinophils (%) (Auto) , Basophils (%) (Auto) , Differential Total Cells Counted 100, Neutrophils % (Manual) 85H, Lymphocytes % (Manual) 10L, Monocytes % (Manual) 4, Eosinophils % (Manual) 1, Basophils % ( Manual) 0, Band Neutrophils 0, Platelet Estimate Adequate, Platelet Morphology Normal, Sodium Level 136, Potassium Level 3.5, Chloride Level 101, Carbon Dioxide Level 24, Anion Gap 12, Blood Urea Nitrogen 26H, Creatinine 1.1, Estimat Glomerular Filtration Rate > 60, Glucose Level 185H, Calcium Level 8.7 Height (Feet): 5 Height (Inches): 8.00 Weight (Pounds): 173 General Appearance: no apparent distress EENT: normal ENT inspection Neck: supple Cardiovascular: normal rate Respiratory/Chest: decreased breath sounds Abdomen: normal bowel sounds, non tender, soft Extremities: non-tender Parviz Scott MD Jan 11, 2019 13:05
--- NOTE | 2019-01-11 13:30 | NUR ---
NURSE NOTES: Wound care nurse at bedside. Patient's did a return demonstration of proper wound care with Wound care nurse supervision.
--- NOTE | 2019-01-11 14:54 | NUR ---
NURSE NOTES:WOUND CARE FOLLOW-UP: Pt pending discharge home. Education on post discharge wound care provided to pt's Partner. Pt's partner was able to return demonstration on proper hand hygiene, removal of packing cleansing,and packing wound and applying drsg. Partner stated he felt comfortable in providing wound care.
--- NOTE | 2019-01-11 15:23 | Surgery Progress Note ---
Surgery Progress Note Subjective Symptoms: improved, tolerating diet, passing flatus Additional Comments CT noted and vivek discussed care plan and findings with patient and no n/v/f/c labs okay Objective Last 24 Hour Vital Signs Date Time Temp Pulse Resp B/P (MAP) Pulse Ox O2 Delivery O2 Flow Rate FiO2 01/11/19 12:00 Room Air Room Air 01/11/19 12:00 97.9 57 19 152/88 (109) 97 01/11/19 11:36 63 01/11/19 08:00 Room Air Room Air 01/11/19 08:00 97.7 61 22 131/71 (91) 99 01/11/19 07:29 65 01/11/19 04:00 97.5 65 22 142/78 (99) 99 01/11/19 04:00 Room Air Room Air 01/11/19 03:58 47 01/11/19 00:00 98.5 75 20 138/77 (97) 97 01/11/19 00:00 Room Air Room Air 01/10/19 23:58 50 01/10/19 20:00 Room Air Room Air 01/10/19 20:00 97.6 76 20 154/72 (99) 99 01/10/19 19:55 75 01/10/19 16:00 60 01/10/19 16:00 97.5 67 20 150/77 (101) 97 01/10/19 16:00 Nasal Cannula 2.0 Room Air I&O Intake and Output 01/10/19 01/11/19 19:00 07:00 Intake Total 578.0 ml 202.0 ml Output Total 1200 ml Balance -622.0 ml 202.0 ml Intake Oral 400 ml 50 ml IV Total 178.0 ml 152.0 ml Output Urine Total 1200 ml # Voids 3 2 Dressing: saturated Wound: clean Cardiovascular: RSR Respiratory: clear Abdomen: soft, non-tender, present bowel sounds, non-distended Extremities: no tenderness, no cyanosis Laboratory Tests Test 01/11/19 03:36 White Blood Count 7.8 K/UL (4.8-10.8) Red Blood Count 5.02 M/UL (4.70-6.10) Hemoglobin 14.8 G/DL (14.2-18.0) Hematocrit 42.6 % (42.0-52.0) Mean Corpuscular Volume 85 FL (80-99) Mean Corpuscular Hemoglobin 29.4 PG (27.0-31.0) Mean Corpuscular Hemoglobin Concent 34.6 G/DL (32.0-36.0) Red Cell Distribution Width 12.9 % (11.6-14.8) Platelet Count 315 K/UL (150-450) Mean Platelet Volume 6.2 FL (6.5-10.1) L Neutrophils (%) (Auto) % (45.0-75.0) Lymphocytes (%) (Auto) % (20.0-45.0) Monocytes (%) (Auto) % (1.0-10.0) Eosinophils (%) (Auto) % (0.0-3.0) Basophils (%) (Auto) % (0.0-2.0) Differential Total Cells Counted 100 Neutrophils % (Manual) 85 % (45-75) H Lymphocytes % (Manual) 10 % (20-45) L Monocytes % (Manual) 4 % (1-10) Eosinophils % (Manual) 1 % (0-3) Basophils % (Manual) 0 % (0-2) Band Neutrophils 0 % (0-8) Platelet Estimate Adequate Platelet Morphology Normal Sodium Level 136 MMOL/L (136-145) Potassium Level 3.5 MMOL/L (3.5-5.1) Chloride Level 101 MMOL/L (98-107) Carbon Dioxide Level 24 MMOL/L (21-32) Anion Gap 12 mmol/L (5-15) Blood Urea Nitrogen 26 mg/dL (7-18) H Creatinine 1.1 MG/DL (0.55-1.30) Estimat Glomerular Filtration Rate > 60 mL/min (>60) Glucose Level 185 MG/DL (74-106) H Calcium Level 8.7 MG/DL (8.5-10.1) Plan Problems: (1) Cellulitis Assessment & Plan: 63-year-old male with left back cellulitis from a prior abscess infected cyst which was I&D. Periwound cellulitis discomfort tenderness erythema with edema. Packing and dressing changes twice daily Okay to shower Antibiotics as per infectious disease We will monitor wound for improvement Thank you for allowing me to participate in patient's care Patient overall improving. Discussed care plan and discharge planning with him. He states his will come and we can teach him wound care and he can anticipate to that at home with his . Otherwise he does not feel comfortable with home health nursing again. Has considered SNF. Pain control Okay for diet not ready for d/c given recent events kub noted bowel regimen will follow (2) Abscess Assessment & Plan: Status post incision and drainage of left mid back abscess/ infected cyst by patient's physician in the office prior. Worsening infection cellulitis. Admitted for antibiotics. Continue as above (3) Abdominal distension Assessment & Plan: CT noted constipated enema today x 2 d/c home bowel regimen f/u with pcp and GI Mike Barron Jan 11, 2019 15:23
--- NOTE | 2019-01-11 15:30 | Progress Note ---
DATE: 01/11/2019 SUBJECTIVE: The patient is a male patient who is still very confused and disorganized. He has got no logical plan for his own self-care. He has got feelings of helplessness, hopelessness, low energy, poor appetite, and loss of interest in activity. That is why, he does require additional treatment at this time. MENTAL STATUS EXAMINATION: The patient is still confused and disorganized. He still has some mood lability and agitation. DIAGNOSIS: Paranoid schizophrenia acute exacerbation. PLAN: Plan for this patient is to treat him with Seroquel 400 mg at bedtime . A 20 minutes of cognitive behavioral therapy provided to help convert his negative thoughts to more positive thoughts to reduce depression, anxiety, mood lability. Seen and assessed in the ICU step-down. Continue Xanax 0.25 mg three times a day. Chart reviewed. Discussed with staff. A 20 minutes of cognitive behavioral therapy to help him identify his automatic negative thoughts and help him convert negative thoughts to more positive thoughts to reduce depression, anxiety, and mood lability. Chart reviewed. Discussed with staff. Seen and assessed at bedside. Yumiko Louis M.D. DR: MARGIE JOB#: [id number] CC:
[2019-01-11 16:00] VITALS: BP 134/81
--- NOTE | 2019-01-11 19:20 | NUR ---
NURSE NOTES: Report received from ZANA Owens. Pt awake ,alert and oriented x 4, able to make needs known. Pt SR on manager cardiac cath. PT on RA, denies SOB. Cellulitis and I&D site on back covered with dressing. Dressing is dry and intact. LFA 22 G heplock noted and intact. Patient denies pain at this time. Safety measures in place with bed locked and in lowest position, side rails up x3 and padded per protocol and bed alarm on. Will continue to monitor and continue plan of care.
--- NOTE | 2019-01-11 19:25 | NUR ---
HAND-OFF: Report given to ZANA Marroquin.
[2019-01-11 20:00] VITALS: BP 130/67
--- NOTE | 2019-01-11 20:05 | NUR ---
NURSE NOTES: Patient talking on phone and accidentally pulled IV catheter out. New 24g R hand IV catheter placed. Pt tolerated care well. Patient assisted to bedside commode without incident and then provided with a bed bath and linen change. Patient remains resting in bed; bed in lowest position with safety wheels engaged, call light within reach and 2 side rails up and padded per protocol. Will continue to monitor.
--- NOTE | 2019-01-11 20:15 | NUR ---
NURSE NOTES: Wound care performed per order. Small amount of serous exudate noted. Patient remains clean and dry with new dressing intact resting in bed; bed in lowest position, safety wheels engaged, side rails elevated x3 and padded per protocol, call light within reach and patient encouraged to use. Will continue to monitor.
[2019-01-11] MEDS: Aspirin Baby 81mg ORAL SCH (21:00)
[2019-01-11] MEDS: Miralax 17gm pkt ORAL SCH (21:00)
[2019-01-11] MEDS: QUEtiapine 200mg tab ORAL SCH (21:00)
[2019-01-11] MEDS: DOLUTEGRAVIR SODIUM 50 MG ORAL SCH (21:00)
[2019-01-11] MEDS: Montelukast 10mg tablet ORAL SCH (21:00)
--- NOTE | 2019-01-11 21:00 | NUR ---
NURSE NOTES: Patient declined administration of all oral medications except for Triazolam. Per pt will not take oral medication while nauseous. Pt would like to wait another hour to take Zofran. Pt provided with ice chips and a low stimulus environment. Pt educations on medications. Will continue to monitor.
--- NOTE | 2019-01-11 21:37 | NUR ---
NURSE NOTES: Patient assisted to bedside commode without incident and then provided with a bed bath and linen change. Small amount of stool passed in response to enema. Zofran and Dilaudid administered to patient per request and complaints of pain 12/06. Current BP 143/78 HR 71 RR 22. Patient remains resting in bed; bed in lowest position with safety wheels engaged, call light within reach and 2 side rails up and padded per protocol. Will continue to monitor. Will reassess.
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
[2019-01-12] VITALS: BP 127/69
[2019-01-12 04:00] VITALS: BP 118/71
[2019-01-12] MEDS: HYDROmorphone 1mg/ml Carpuject IVP PRN ×2 (04:04→10:15)
--- NOTE | 2019-01-12 04:05 | NUR ---
NURSE NOTES: Patient administered Zofran for nausea and Dilaudid for pain -12/06. Current BP 118/71 HR 68 RR 24. Patient remains resting in bed; bed in lowest position with safety wheels engaged, call light within reach and 2 side rails up and padded per protocol. Will continue to monitor. Will reassess.
[2019-01-12 06:18] LABS: HEMATOCRIT 41.8 % (42.0-52.0); HEMOGLOBIN 14.6 G/DL (14.2-18.0); MEAN CORPUSCULAR VOLUME 84 FL (80-99); PLATELET COUNT 329 K/UL (150-450); RED BLOOD COUNT 4.96 M/UL (4.70-6.10); RED CELL DISTRIBUTION WIDTH 12.4 % (11.6-14.8); WHITE BLOOD COUNT 7.9 K/UL (4.8-10.8)
--- NOTE | 2019-01-12 07:13 | NUR ---
HAND-OFF: Report given to ZANA Avendano. No signs of cardiac or respiratory distress noted. Safety measures in place with bed locked and in lowest position,call light within reach, side rails up x3 and padded per protocol and bed alarm on.
[2019-01-12 07:20] LABS: ANION GAP 11 mmol/L (5-15); BLOOD UREA NITROGEN 21 mg/dL (7-18); CALCIUM 8.7 MG/DL (8.5-10.1); CARBON DIOXIDE 25 MMOL/L (21-32); CHLORIDE 102 MMOL/L (98-107); CREATININE 1.1 MG/DL (0.55-1.30); POTASSIUM 3.2 MMOL/L (3.5-5.1); SODIUM 138 MMOL/L (136-145)
--- NOTE | 2019-01-12 07:20 | NUR ---
NURSE NOTES: Received report from Huang Albarran RN. Patient alert and oriented x 4, able to make needs known. On room air, respirations even and unlabored. Upper back wound noted with clean and dry dressing. Right hand peripheral IV site patent and asymptomatic. Bed locked in lowest position with padded side rails up x 3. All needs attended to. Call light within reach. Will continue to monitor.
[2019-01-12] MEDS: Piperacillin/Tazobactam 3.375 GM in NS 110 ML IVPB SCH (07:58)
[2019-01-12 08:00] VITALS: BP 120/78
[2019-01-12] MEDS: Docusate 100mg cap ORAL SCH (08:37)
[2019-01-12] MEDS: metFORMIN 500mg tab ORAL SCH (08:37)
[2019-01-12] MEDS: Bactrim Susp 20ml ORAL SCH (08:37)
[2019-01-12] MEDS: DEXILANT 60 MG ORAL SCH (08:38)
[2019-01-12] MEDS: DESCOVY ORAL SCH (08:38)
[2019-01-12] MEDS: INTELENCE 200 MG ORAL SCH (08:38)
[2019-01-12] MEDS: GlipiZIDE 5mg tab ORAL SCH (08:38)
[2019-01-12] MEDS: JARDIANCE 10 MG ORAL SCH (08:39)
[2019-01-12] MEDS: ALPRAZolam 0.25mg tab ORAL SCH (08:39)
--- NOTE | 2019-01-12 08:39 | NUR ---
NURSE NOTES: Patient refused all PO meds. Per patient, "just the thought of the pills" makes him nauseous. Nausea medication and ice chips offered but refused. Educated patient on medication use and side effects but patient insists on not taking PO medication. Patient alert and oriented x 4. Respected patient's wishes. Dr. Dyer made aware.
[2019-01-12] MEDS: Neosporin Oint 15gm TOPIC SCH (08:41)
--- NOTE | 2019-01-12 10:05 | General Progress Note ---
Assessment/Plan Problem List: (1) AIDS ICD Codes: B20 - Human immunodeficiency virus [HIV] disease SNOMED: 24028856 (2) Diabetes ICD Codes: E11.9 - Type 2 diabetes mellitus without complications SNOMED: 01156712 (3) Abscess ICD Codes: L02.91 - Cutaneous abscess, unspecified SNOMED: 529356183 (4) Cellulitis ICD Codes: L03.90 - Cellulitis, unspecified SNOMED: 083797777 Qualifiers: Qualified Codes: L03.90 - Cellulitis, unspecified (5) Rectal bleed ICD Codes: K62.5 - Hemorrhage of anus and rectum SNOMED: 15220089 (6) Pneumonia ICD Codes: J18.9 - Pneumonia, unspecified organism SNOMED: 039287710 (7) Sepsis ICD Codes: A41.9 - Sepsis, unspecified organism SNOMED: 09145105 Qualifiers: Qualified Codes: A41.9 - Sepsis, unspecified organism (8) Syncope ICD Codes: R55 - Syncope and collapse SNOMED: 124080504 (9) Abdominal distension ICD Codes: R14.0 - Abdominal distension (gaseous) SNOMED: 98797634 Status: stable, progressing Assessment/Plan: wound care abx bs pain control pt diet cbc bmp am gi sx f/u dc w hh Subjective Constitutional: Reports: weakness Allergies: Coded Allergies: No Known Allergies (Unverified , 01/06/19) All Systems: reviewed and negative except above Subjective calm wants to go home Objective Last 24 Hour Vital Signs Date Time Temp Pulse Resp B/P (MAP) Pulse Ox O2 Delivery O2 Flow Rate FiO2 01/12/19 08:00 65 01/12/19 08:00 98.2 64 20 120/78 (92) 96 01/12/19 04:00 97.7 70 18 118/71 (87) 96 01/12/19 04:00 Room Air Room Air 01/12/19 03:53 54 01/12/19 00:00 98.0 73 20 127/69 (88) 99 01/12/19 00:00 Room Air Room Air 01/11/19 23:27 67 01/11/19 20:00 Room Air Room Air 01/11/19 20:00 97.9 60 20 130/67 (88) 98 01/11/19 19:23 61 01/11/19 16:00 Room Air Room Air 01/11/19 16:00 97.5 58 19 134/81 (98) 97 01/11/19 15:22 56 01/11/19 12:00 Room Air Room Air 01/11/19 12:00 97.9 57 19 152/88 (109) 97 01/11/19 11:36 63 Intake and Output 01/11/19 01/12/19 18:59 06:59 Intake Total 165.0 ml 587.5 ml Balance 165.0 ml 587.5 ml Intake Oral 450 ml IV Total 165.0 ml 137.5 ml # Voids 3 # Bowel Movements 1 3 Laboratory Tests 01/12/19 04:15: White Blood Count 7.9, Red Blood Count 4.96, Hemoglobin 14.6, Hematocrit 41.8L, Mean Corpuscular Volume 84, Mean Corpuscular Hemoglobin 29.4, Mean Corpuscular Hemoglobin Concent 34.9, Red Cell Distribution Width 12.4, Platelet Count 329, Mean Platelet Volume 6.2L, Neutrophils (%) (Auto) , Lymphocytes (%) (Auto) , Monocytes (%) (Auto) , Eosinophils (%) (Auto) , Basophils (%) (Auto) , Neutrophils % (Manual) [Pending], Lymphocytes % (Manual) [Pending], Platelet Estimate [Pending], Platelet Morphology [Pending], Sodium Level 138, Potassium Level 3.2L, Chloride Level 102, Carbon Dioxide Level 25, Anion Gap 11, Blood Urea Nitrogen 21H, Creatinine 1.1, Estimat Glomerular Filtration Rate > 60, Glucose Level 143H, Calcium Level 8.7 Height (Feet): 5 Height (Inches): 8.00 Weight (Pounds): 173 General Appearance: alert EENT: normal ENT inspection Neck: normal alignment Cardiovascular: normal peripheral pulses, normal rate, regular rhythm Respiratory/Chest: chest wall non-tender, lungs clear, normal breath sounds Abdomen: normal bowel sounds, non tender, soft Extremities: normal inspection Edema: no edema noted Arm (L), no edema noted Arm (R), no edema noted Leg (L), no edema noted Leg (R), no edema noted Pedal (L), no edema noted Pedal (R), no edema noted Generalized Neurologic: responsive, motor weakness Skin: normal pigmentation, warm/dry Dyer,Dom Chi-Shira DO Jan 12, 2019 10:05
[2019-01-12 12:00] VITALS: BP 137/80
--- NOTE | 2019-01-12 12:00 | NUR ---
PT Note Acknowledged order for PT eval/tx. Attempted to see patient for PT eval/tx. As this PT was introducing herself and purpose, patient immediately said, "I don't need any physical therapy. I'll be going home within an hour and my will take care of me. He's been taking care of me for the past 25 years." CN and RN were notified of refusal for PT eval.
--- NOTE | 2019-01-12 12:01 | NUR ---
NURSE NOTES: Patient cleared by ID and surgery for discharge. Per Dr. Thomas, patient is not cleared by cardio d/t need for ICD. Dr. Dyer made aware. Addendum: 01/12/19 at 1247 by JANN AMAYA RN Dr. Thomas spoke to Burke, charge nurse, patient cleared for discharge
--- NOTE | 2019-01-12 12:15 | NUR ---
NURSE NOTES: Spoke to Pankaj [email or web address], that patient is for discharge and patient is about to leave soon. He said that he's not coming anymore.
[2019-01-12] MEDS ORDERED: NS 275ml ONE ×2 (12:34)
--- NOTE | 2019-01-12 12:34 | NUR ---
Discharge: Patient is being discharged from medical care. Awake, alert and oriented x 4. Patient and spouse refused discharge packet and education, stated "we got everything." All medical devices such as IV and ID band were removed. Patient ambulated out with all personal belongings with steady gait, accompanied by charge nurse Burke.
--- NOTE | 2019-01-12 14:22 | Surgery Progress Note ---
Surgery Progress Note Subjective Symptoms: improved, BM Objective Last 24 Hour Vital Signs Date Time Temp Pulse Resp B/P (MAP) Pulse Ox O2 Delivery O2 Flow Rate FiO2 01/12/19 12:00 97.9 60 20 137/80 (99) 97 01/12/19 12:00 Room Air Room Air 01/12/19 11:33 68 01/12/19 10:45 98.2 01/12/19 08:00 65 01/12/19 08:00 Room Air Room Air 01/12/19 08:00 98.2 64 20 120/78 (92) 96 01/12/19 04:00 97.7 70 18 118/71 (87) 96 01/12/19 04:00 Room Air Room Air 01/12/19 03:53 54 01/12/19 00:00 98.0 73 20 127/69 (88) 99 01/12/19 00:00 Room Air Room Air 01/11/19 23:27 67 01/11/19 20:00 Room Air Room Air 01/11/19 20:00 97.9 60 20 130/67 (88) 98 01/11/19 19:23 61 01/11/19 16:00 Room Air Room Air 01/11/19 16:00 97.5 58 19 134/81 (98) 97 01/11/19 15:22 56 I&O Intake and Output 01/11/19 01/12/19 19:00 07:00 Intake Total 165.0 ml 587.5 ml Balance 165.0 ml 587.5 ml Intake Oral 450 ml IV Total 165.0 ml 137.5 ml # Voids 3 # Bowel Movements 1 3 Laboratory Tests Test 01/12/19 04:15 White Blood Count 7.9 K/UL (4.8-10.8) Red Blood Count 4.96 M/UL (4.70-6.10) Hemoglobin 14.6 G/DL (14.2-18.0) Hematocrit 41.8 % (42.0-52.0) L Mean Corpuscular Volume 84 FL (80-99) Mean Corpuscular Hemoglobin 29.4 PG (27.0-31.0) Mean Corpuscular Hemoglobin Concent 34.9 G/DL (32.0-36.0) Red Cell Distribution Width 12.4 % (11.6-14.8) Platelet Count 329 K/UL (150-450) Mean Platelet Volume 6.2 FL (6.5-10.1) L Neutrophils (%) (Auto) % (45.0-75.0) Lymphocytes (%) (Auto) % (20.0-45.0) Monocytes (%) (Auto) % (1.0-10.0) Eosinophils (%) (Auto) % (0.0-3.0) Basophils (%) (Auto) % (0.0-2.0) Differential Total Cells Counted 100 Neutrophils % (Manual) 84 % (45-75) H Lymphocytes % (Manual) 13 % (20-45) L Monocytes % (Manual) 3 % (1-10) Eosinophils % (Manual) 0 % (0-3) Basophils % (Manual) 0 % (0-2) Band Neutrophils 0 % (0-8) Platelet Estimate Adequate Platelet Morphology Normal Red Blood Cell Morphology Normal Sodium Level 138 MMOL/L (136-145) Potassium Level 3.2 MMOL/L (3.5-5.1) L Chloride Level 102 MMOL/L (98-107) Carbon Dioxide Level 25 MMOL/L (21-32) Anion Gap 11 mmol/L (5-15) Blood Urea Nitrogen 21 mg/dL (7-18) H Creatinine 1.1 MG/DL (0.55-1.30) Estimat Glomerular Filtration Rate > 60 mL/min (>60) Glucose Level 143 MG/DL (74-106) H Calcium Level 8.7 MG/DL (8.5-10.1) Plan Problems: (1) Cellulitis Assessment & Plan: 63-year-old male with left back cellulitis from a prior abscess infected cyst which was I&D. Periwound cellulitis discomfort tenderness erythema with edema. Packing and dressing changes twice daily Okay to shower Antibiotics as per infectious disease We will monitor wound for improvement Thank you for allowing me to participate in patient's care Patient overall improving. Discussed care plan and discharge planning with him. He states his will come and we can teach him wound care and he can anticipate to that at home with his . Otherwise he does not feel comfortable with home health nursing again. Has considered SNF. Pain control Okay for diet d/c kub noted bowel regimen will follow (2) Abscess Assessment & Plan: Status post incision and drainage of left mid back abscess/ infected cyst by patient's physician in the office prior. Worsening infection cellulitis. Admitted for antibiotics. Continue as above (3) Abdominal distension Assessment & Plan: CT noted constipated enema today x 2 d/c home bowel regimen f/u with pcp and GI d/c Mike Barron Jan 12, 2019 14:22
--- NOTE | 2019-01-12 16:45 | Progress Note ---
DATE: 01/11/2019 SUBJECTIVE: This is a 63-year-old male patient. He is confused, disorganized, and mood labile. He has got no logical plan for his own self-care. That is why, he does require inpatient treatment. MENTAL STATUS EXAMINATION: This is a 63-year-old male patient. The patient is confused and disorganized. DIAGNOSIS: Paranoid schizophrenia with acute exacerbation. PLAN: Treat him with Seroquel 400 mg nightly and Xanax 0.25 mg three times a day. A 20 minutes of cognitive behavioral therapy to help him identify his automatic negative thoughts and help him convert those negative thoughts to more positive thoughts to reduce depression, anxiety, and mood lability. Chart reviewed. Discussed with staff. Seen and assessed at bedside. Yumiko Louis M.D. DR: MARGIE JOB#: [id number] CC:
--- NOTE | 2019-01-12 17:42 | General Progress Note ---
Assessment/Plan Status: stable, progressing Assessment/Plan: Assessment/Plan Problems: (1) Rectal bleed ICD Codes: K62.5 - Hemorrhage of anus and rectum SNOMED: 89142046 (2) Abnormal lower esophageal sphincter relaxation ICD Codes: K22.0 - Achalasia of cardia SNOMED: 60672219, 71387650 (3) GI bleed ICD Codes: K92.2 - Gastrointestinal hemorrhage, unspecified SNOMED: 17978930 (4) GERD (gastroesophageal reflux disease) ICD Codes: K21.9 - Gastro-esophageal reflux disease without esophagitis SNOMED: 790133783 (5) Dysphagia ICD Codes: R13.10 - Dysphagia, unspecified SNOMED: 46049760, 848923864 Assessment/Plan s/p EGD SUMMARY OF FINDINGS: 1. Distal esophageal ring. 2. A 6 cm either hiatal hernia versus paraesophageal hernia. 3. Gastritis, status post biopsy. RECOMMENDATIONS: outpatient colonoscopy follow up biopsy results and treat accordingly. f/u surgical recommendations Hold all blood thinners 2nd Abdominal pelvis CT reviewed. There is no abscess, free fluid or evidence of small bowel obstruction. Protonix twice daily twice daily Zofran as needed We will follow with additional recommendations postprocedure Subjective Allergies: Coded Allergies: No Known Allergies (Unverified , 01/06/19) Subjective feels OK loose BM tolerating PO seen earlier today Objective Last 24 Hour Vital Signs Date Time Temp Pulse Resp B/P (MAP) Pulse Ox O2 Delivery O2 Flow Rate FiO2 01/12/19 12:00 97.9 60 20 137/80 (99) 97 01/12/19 12:00 Room Air Room Air 01/12/19 11:33 68 01/12/19 10:45 98.2 01/12/19 08:00 65 01/12/19 08:00 Room Air Room Air 01/12/19 08:00 98.2 64 20 120/78 (92) 96 01/12/19 04:00 97.7 70 18 118/71 (87) 96 01/12/19 04:00 Room Air Room Air 01/12/19 03:53 54 01/12/19 00:00 98.0 73 20 127/69 (88) 99 01/12/19 00:00 Room Air Room Air 01/11/19 23:27 67 11/15/19 20:00 Room Air Room Air 01/11/19 20:00 97.9 60 20 130/67 (88) 98 01/11/19 19:23 61 Intake and Output 01/11/19 01/12/19 19:00 07:00 Intake Total 165.0 ml 587.5 ml Balance 165.0 ml 587.5 ml Intake Oral 450 ml IV Total 165.0 ml 137.5 ml # Voids 3 # Bowel Movements 1 3 Laboratory Tests 01/12/19 04:15: White Blood Count 7.9, Red Blood Count 4.96, Hemoglobin 14.6, Hematocrit 41.8L, Mean Corpuscular Volume 84, Mean Corpuscular Hemoglobin 29.4, Mean Corpuscular Hemoglobin Concent 34.9, Red Cell Distribution Width 12.4, Platelet Count 329, Mean Platelet Volume 6.2L, Neutrophils (%) (Auto) , Lymphocytes (%) (Auto) , Monocytes (%) (Auto) , Eosinophils (%) (Auto) , Basophils (%) (Auto) , Differential Total Cells Counted 100, Neutrophils % (Manual) 84H, Lymphocytes % (Manual) 13L, Monocytes % (Manual) 3, Eosinophils % (Manual) 0, Basophils % ( Manual) 0, Band Neutrophils 0, Platelet Estimate Adequate, Platelet Morphology Normal, Red Blood Cell Morphology Normal, Sodium Level 138, Potassium Level 3.2L , Chloride Level 102, Carbon Dioxide Level 25, Anion Gap 11, Blood Urea Nitrogen 21H, Creatinine 1.1, Estimat Glomerular Filtration Rate > 60, Glucose Level 143H, Calcium Level 8.7 Height (Feet): 5 Height (Inches): 8.00 Weight (Pounds): 173 Objective WDWN NCAT supple CTA RR abd soft ND , mild diffuse TTP no edema Brandon Quiroga MD Jan 12, 2019 17:42
--- NOTE | 2019-01-13 12:38 | Discharge Summary ---
Discharge Summary Discharge Summary _ DATE OF ADMISSION: 01/06/2019 DATE OF DISCHARGE: 01/12/2019 DISCHARGED BY: Dr. Dyer REASON FOR ADMISSION: 63-year-old male with past medical history of HIV/AIDS, hepatitis C, CVA in 2019 , COPD/asthma, seizure disorder, skin and liver cancer, cirrhosis, presented for evaluation due to fever, chills , generalized weakness for two days after he had incision and drainage of the back abscess. Patient was unable to obtain his antibiotic for more than 24 hours. Upon evaluation patient was afebrile, blood pressure was on the low side. Pulse oximetry was stable on room air. Laboratory work-up revealed no leukocytosis , hemoglobin 15.6 , hematocrit 48. Platelet count 263. Stable electrolytes. BUN 25, creatinine 1.6. Glucose 149. Lactic acid 0.9. AST 40 , ALT 34. Troponin negative , proBNP 108. Albumin 4.1 . EKG revealed sinus rhythm , no acute ischemic changes . Chest x-ray revealed no acute cardiopulmonary pathology. CT of the head revealed no acute intracranial bleeding, mass-effect or edema. Mild atrophy of the brain was noted. Chronic small vessel disease noted . CT scan of abdomen and pelvis showed no acute intra-abdominal pathology. Evidence of prior abdominal surgery, including partial small bowel resection. Status post cholecystectomy. Hiatal hernia. Urinalysis revealed +4 glucose, but no evidence of urinary tract infection. Patient subsequently admitted for further management. CONSULTANTS: aircraft structural design engineer Dr. Thomas neurologist Dr. Nevarez ID specialist Dr. Brady GI specialist Dr. Scott surgery Dr. Barron psychiatrist Dr. Louis pain Specialist Dr. Can HOSPITAL COURSE: Patient admitted initially to [facility] and started on IV fluids and empiric antibiotics. ID specialist and surgeon followed. Patient presented with periwound cellulitis , discomfort, tenderness , erythema and edema. Wound care provided as per surgeon recommendation. Antibiotic provided per ID specialist recommendation. Blood culture were negative. Wound culture was negative. Patient remained afebrile , no leukocytosis ID specialist recommended complete antibiotic and continue home antiretroviral therapy. Continue Bactrim DS daily. Patient apparently was diagnosed with HIV in 1982 . Patient had multiple infections, including PCP and cryptococcal infection. Current CD4 count 233. Patient was still on the Bactrim DS daily. Patient at home on ART with Thiago Noonan and [employer]. Patient had outpatient HIV provider that he followed. GI specialist was consulted for reported dysphagia , history of chronic GERD and bright red blood per rectum. Patient subsequently undergone EGD and colonoscopy. EGD revealed distal esophageal ring, 6 cm hiatal hernia versus paraesophageal hernia, gastritis, status post biopsy. Pathology of gastric antrum revealed no evidence of H. pylori, no intestinal metaplasia , dysplasia or malignancy. Moderate chronic gastritis with healing erosion noted. Strict aspiration precaution maintained. Patient subsequently undergone another CT of abdomen and pelvis, which revealed no obvious free fluid, no evidence of small bowel obstruction. Patient started on GI prophylaxis twice a day. Antiemetic were on board as needed. Patient was able to tolerate diet. Bowel regimen instituted. Blood sugar was managed with metformin and glipizide. Levothyroxine continued . Pain management was addressed as per pain specialist recommendation. Supplemental oxygen titrated to keep pulse oximetry above 92%. Pulmonary toilet provided as needed. Pulse oximetry was stable on room air . No evidence of COPD/asthma exacerbation. Neurologist seen patient seen and evaluated patient due to syncopal episode. Patient did not appear to be encephalopathic, No need for antiseizure medication. Neurologist recommended EEG awake and sleep. Altered mental status was probably related to HIV drugs and infection. Psychiatrist closely followed. Per psychiatrist patient had paranoid schizophrenia with acute exacerbation. Psychiatric medication regimen was optimized. Cognitive behavioral therapy provided. Patient clinically stabilized and was ready for discharge home . FINAL DIAGNOSES: Cellulitis GERD Dysphagia GI bleeding/rectal bleeding Status post upper endoscopy with biopsy Moderate chronic gastritis with healing erosion Abnormal lower esophageal sphincter relaxation HIV /AIDS Hepatitis C Asthma/COPD Paranoid schizophrenia with acute exacerbation DISCHARGE MEDICATIONS: List of medication was sent with patient. DISCHARGE INSTRUCTIONS: Patient was discharged home . Follow up with primary care provider in one week. Follow-up with GI specialist. I have been assigned to dictate discharge summary for this account. I was not involved in the patient's management. Mindy Rebolledo NP Jan 13, 2019 12:38
--- NOTE | 2019-01-15 10:09 | NUR ---
*-* CASE MANAGEMENT NOTES *-* RECEIVED A CALL FROM [facility] AND HE HAS DECLINED SERVICES.
== END 2019-01-12 12:35 | disposition home or self-care (01) | DRG 603 ==
LOC: EMR 14:11 → 4E 15:19 → EDBEDREQ 16:27 → 4E 18:27 → ICU 01-08 21:37 → 2W 01-09 19:00
PROC: 0DB78ZX Excision of Stomach, Pylorus, Via Natural or Artificial Opening Endoscopic, Diagnostic (ICD-10-PCS; principal; 2019-01-09 11:56)
DX: L03.312 Cellulitis of back [any part except buttock and flank] (principal); B20 Human immunodeficiency virus [HIV] disease; K92.2 Gastrointestinal hemorrhage, unspecified; F20.0 Paranoid schizophrenia; F31.81 Bipolar II disorder; L02.212 Cutaneous abscess of back [any part, except buttock and flank]; K44.9 Diaphragmatic hernia without obstruction or gangrene; I10 Essential (primary) hypertension; E11.9 Type 2 diabetes mellitus without complications; Z79.84 Long term (current) use of oral hypoglycemic drugs; Z79.82 Long term (current) use of aspirin; B19.20 Unspecified viral hepatitis C without hepatic coma; K29.50 Unspecified chronic gastritis without bleeding; J44.9 Chronic obstructive pulmonary disease, unspecified; F41.9 Anxiety disorder, unspecified; G62.9 Polyneuropathy, unspecified; R13.10 Dysphagia, unspecified; Z86.73 Personal history of transient ischemic attack (TIA), and cerebral infarction without residual deficits; R56.9 Unspecified convulsions; Z90.49 Acquired absence of other specified parts of digestive tract; V89.2XXS Person injured in unspecified motor-vehicle accident, traffic, sequela; E03.9 Hypothyroidism, unspecified; I25.10 Atherosclerotic heart disease of native coronary artery without angina pectoris; K22.2 Esophageal obstruction; G47.00 Insomnia, unspecified; K21.9 Gastro-esophageal reflux disease without esophagitis; G89.29 Other chronic pain; R14.0 Abdominal distension (gaseous)
CPT/HCPCS: 36415; 70450; 71045; 74018; 74176; 74177; 80048; 80053; 81003; 82150; 82270; 82550; 82553; 83605; 83690; 83735; 83880; 84100; 84484; 85007; 85025; 85610; 85730; 86360; 86777; 86850; 86900; 86901; 87040; 87070; 87205; 93005; 94003; 94150; 96365; 96375; 99285; J2405; J7030; J8499